=== PATIENT | female | born 1975 | race Caucasian/White ===

== ENCOUNTER 2017-06-08 14:25 | Inpatient (IN) | payer SELFPAY ==
[~2017-06-08] VITALS: Ht 162.6 cm; Wt 84.3 kg
[2017-06-08] VITALS (8 sets, daily range): PULSE 58–63; O2SAT 100
[2017-06-08] MEDS ORDERED: PROPOFOL 1000 MG/100 ML INJ 100 ML ONE ×2 (14:40)
[2017-06-08 14:53] LABS: AUTOMATED NEUTROPHIL # 7.4 TH/MM3 (1.8-7.7); BASOPHIL # 0.1 TH/MM3 (0-0.2); EOSINOPHIL # 0.5 TH/MM3 (0-0.4); EOSINOPHIL % 5.1 % (0.0-4.0); HEMATOCRIT 26.7 % (35.0-46.0); HEMOGLOBIN 8.4 GM/DL (11.6-15.3); LYMPH % 9.6 % (9.0-44.0); LYMPHOCYTE # 0.9 TH/MM3 (1.0-4.8); MEAN CELL VOLUME 77.4 FL (80.0-100.0); MEAN CORPUSCULAR HEMOGLOBIN 24.5 PG (27.0-34.0); MEAN CORPUSCULAR HGB CONC 31.6 % (32.0-36.0); MEAN PLATELET VOLUME 6.5 FL (7.0-11.0); MONO % 1.7 % (0.0-8.0); MONOCYTE # 0.2 TH/MM3 (0-0.9); NEUT % 82.6 % (16.0-70.0); PLATELET COUNT 342 TH/MM3 (150-450); RED BLOOD COUNT 3.44 MIL/MM3 (4.00-5.30); RED CELL DISTRIBUTION WIDTH 18.6 % (11.6-17.2)
--- NOTE | 2017-06-08 14:53 | PD ---
HPI Chief Complaint: trauma alert Time Seen by Provider: 14:28 Travel History International Travel<30 days: No Contact w/Intl Traveler<30days: No Traveled to known affect area: No History of Present Illness HPI Patient with unknown ID was brought in as a trauma alert by the personal injury specialist. I was in the trauma bay waiting for the patient's arrival. Initially the patient was found laying on the floor by her boyfriend in her house at the bottom of the stairs with both legs tucked under her bottom. Patient was GCS of 3 upon their arrival. They tried to give her Narcan without any reversal. No external injuries were noticed. There was an empty bottle of hydroxyzine noticed next to her that was filled recently and only 2 pills left in the bottle. She was maintaining her airway. They brought her in boarded and collared. Patient obviously is unable to give any history. She was hemodynamically stable and GCS continued to be 3. PFSH Past Medical History Narrative Medical Unknown Allergies-Medications (Allergen,Severity, Reaction): Coded Allergies: Sulfa (Sulfonamide Antibiotics) (Verified Allergy, Severe, 06/10/17) azithromycin (Verified Allergy, Severe, 06/10/17) ondansetron (Verified Allergy, Severe, Swelling, 06/09/17) cyclobenzaprine (Verified Allergy, Intermediate, 06/09/17) propoxyphene (Verified Allergy, Intermediate, 06/09/17) Comments Unknown Reported Meds & Prescriptions Reported Meds & Active Scripts Active Reported Loperamide (Loperamide HCl) 2 Mg Cap 2 Mg PO DIRECTED PRN One capsule after each loose stool. Not to exceed 8 capsules per day. Pantoprazole (Pantoprazole Sodium) 40 Mg Tab 40 Mg PO BID Gabapentin 600 Mg Tab 600 Mg PO QID Fluoxetine (Fluoxetine HCl) 40 Mg Cap 40 Cap PO DAILY Mirtazapine 15 Mg Tab 15 Mg PO HS Narrative Medication Unknown Review of Systems ROS Limitations: Unresponsive Except as stated in HPI: all other systems reviewed are Neg Physical Exam Narrative GENERAL: Unresponsive, boarded and collared SKIN: Focused skin assessment warm/dry. Contusions on the upper back HEAD: Atraumatic. Normocephalic. EYES: Pupils equal and round. No scleral icterus. No injection or drainage. ENT: No nasal bleeding or discharge. Mucous membranes pink and moist. NECK: Trachea midline. No JVD. CARDIOVASCULAR: Regular rate and rhythm. No murmur appreciated. RESPIRATORY: No accessory muscle use. Clear to auscultation. Breath sounds equal bilaterally. GASTROINTESTINAL: Abdomen soft, non-tender, nondistended. Hepatic and splenic margins not palpable. Perirectal laceration at 5 o'clock position MUSCULOSKELETAL: No obvious deformities. No clubbing. No cyanosis. No edema. NEUROLOGICAL: GCS of 3 PSYCHIATRIC: Unable to assess Data Data Last Documented VS Vital Signs Date Time Temp Pulse Resp B/P (MAP) Pulse Ox O2 Delivery O2 Flow Rate FiO2 06/08/17 15:08 100 100 Orders Orders I-Stat Profile (06/08/17 14:39) I-Stat Creatinine (06/08/17 14:39) Complete Blood Count With Diff (06/08/17 14:39) Prothrombin Time / Inr (Pt) (06/08/17 14:39) Act Partial Throm Time (Ptt) (06/08/17 14:39) Type And Screen (06/08/17 14:39) Chest, Single Ap (06/08/17 14:39) Pelvis, Ap Only (Routine) (06/08/17 14:39) Ct Brain W/O Iv Contrast(Rout) (06/08/17 14:39) Ct Cerv Spine W/O Contrast (06/08/17 14:39) Ct Abd/Pel W Iv Contrast(Rout) (06/08/17 14:39) Ct Thorax/ Chest W Iv Contrast (06/08/17 14:39) Iv Access Insert/Monitor (06/08/17 14:39) Ecg Monitoring (06/08/17 14:39) Oximetry (06/08/17 14:39) Oxygen Administration (06/08/17 14:39) Propofol 1000 Mg/100 Ml Inj (Diprivan 10 (06/08/17 14:40) Admit Order (Ed Use Only) (06/08/17 15:17) Labs Laboratory Tests Test 06/08/17 14:38 White Blood Count 9.0 TH/MM3 Red Blood Count 3.44 MIL/MM3 Hemoglobin 8.4 GM/DL Bedside Hemoglobin 9.5 G/DL Hematocrit 26.7 % Bedside Hematocrit 28.0 % Mean Corpuscular Volume 77.4 FL Mean Corpuscular Hemoglobin 24.5 PG Mean Corpuscular Hemoglobin Concent 31.6 % Red Cell Distribution Width 18.6 % Platelet Count 342 TH/MM3 Mean Platelet Volume 6.5 FL Neutrophils (%) (Auto) 82.6 % Lymphocytes (%) (Auto) 9.6 % Monocytes (%) (Auto) 1.7 % Eosinophils (%) (Auto) 5.1 % Basophils (%) (Auto) 1.0 % Neutrophils # (Auto) 7.4 TH/MM3 Lymphocytes # (Auto) 0.9 TH/MM3 Monocytes # (Auto) 0.2 TH/MM3 Eosinophils # (Auto) 0.5 TH/MM3 Basophils # (Auto) 0.1 TH/MM3 CBC Comment DIFF FINAL Differential Comment Prothrombin Time 10.6 SEC Prothromb Time International Ratio 1.0 RATIO Activated Partial Thromboplast Time 20.1 SEC Bedside Sodium 130 MMOL/L Bedside Potassium 4.7 MMOL/L Bedside Chloride 105 MMOL/L Bedside Blood Urea Nitrogen 10 MG/DL Bedside Creatinine 0.8 MG/DL Bedside Glucose 116 MG/DL Phosphorus Level 3.6 MG/DL Magnesium Level 1.6 MG/DL Iron Level 26 MCG/DL Total Iron Binding Capacity 447 MCG/DL Percent Iron Saturation 5.8 % Transferrin 319 MG/DL Ferritin 12 NG/ML Total Bilirubin 0.1 MG/DL Direct Bilirubin 0.1 MG/DL Indirect Bilirubin 0.0 MG/DL Aspartate Amino Transf (AST/SGOT) 17 U/L Alanine Aminotransferase (ALT/SGPT) 14 U/L Alkaline Phosphatase 103 U/L Total Creatine Kinase 89 U/L Total Protein 6.8 GM/DL Albumin 3.3 GM/DL Amylase Level 29 U/L Lipase 74 U/L Thyroid Stimulating Hormone 3rd Gen 1.950 uIU/ML Human Chorionic Gonadotropin, Quant 3 MIU/ML Salicylates Level 13.0 MG/DL Acetaminophen Level LESS THAN 2.0 MCG/ML Ethyl Alcohol Level LESS THAN 3 MG/DL B-Hydroxybutyrate 0.07 MMOL/L [facility] Medical Screen Exam Complete: Yes Emergency Medical Condition: Yes Medical Record Reviewed: Yes EKG Prior to Arrival: Yes Differential Diagnosis Intracranial bleed, intrathoracic injury, intrabdominal injury, cervical fracture Narrative Course 3:11 PM given patient's poor GCS status initially I decided to intubate her to protect her airway. Please refer to my procedure note regarding this. The trauma surgeon was present and together patient was inspected as a secondary infection. No external injuries anteriorly was noticed. The trauma surgeon put a right femoral central line. Please refer to his procedure note. Patient' s blood pressure continued to be stable. She was rolled off the backboard and contusions on her upper back was noticed along with the superficial laceration perirectally at 5 o'clock position. There was a significant step off at C7-T1. Patient remained hemodynamically stable when left the trauma bay to go for CT scan. The trauma surgeon assisted her. Portable chest x-ray confirmed tube position. The trauma surgeon just called me to let me note that there were no internal injuries and he will wanted the patient to be admitted medically. He works sign off on the trauma since as per him this is a medical case given the overdose. I put a call out for the storage battery tester for patient's admission. Patient was given 1 L of IV fluid bolus. Critical Care Narrative Aggregate critical care time was 45 minutes. Time to perform other separately billable procedures was not included in the critical care time. My time did not include minutes spent treating any other patients simultaneously or on activities that did not directly contribute to the patient's treatment. The services I provided to this patient were to treat and/or prevent clinically significant deterioration that could result in: Unresponsive, respiratory failure I provided critical care services requiring my management, as noted below: Chart data review, documentation time, medication orders and management, vital sign assessments/reviewing monitor data, ordering and reviewing lab tests, ordering and interpreting/reviewing x-rays and diagnostic studies, care of the patient and discussion of the patient with the admitting physicians. Procedures Procedure Narrative After the risks and benefits were discussed the following procedure was performed: INTUBATION: The patient was put in optimal position for the procedure. Rapid sequence intubation was initiated by me using 40 milligrams of etomidate IV and 200 milligrams of succinylcholine IV. The patient was intubated with a 7.5 cuffed endotracheal tube. Tube placement was confirmed by visualization of the tube and balloon passing through the cords, capnometry and subsequent chest x-ray. Breath sounds were equal and well aerated bilaterally postintubation. No breath sounds over stomach. Patient tolerated procedure well. Emergency department E-FAST was performed with patient consent. The curvilinear probe was used in the right upper quadrant/Morison's pouch, suprapubic, left upper quadrant/spleenorenal space, epigastric, parasternal long axis and anterior bilateral chest wall. There was no evidence of peritoneal free fluid, pericardial effusion, or pneumothorax. Trauma Alert - Level One Trauma Alert Level One: Full trauma team activate, Patient evaluated, Trauma surgeon summoned Time Surgeon Summoned: 14:[address] Augustin, Dr. Lomax Diagnosis Diagnosis: Primary Impression: Unresponsive Additional Impressions: Respiratory failure Qualified Codes: J96.00 - Acute respiratory failure, unspecified whether with hypoxia or hypercapnia Overdose Qualified Codes: T50.904A - Poisoning by unspecified drugs, medicaments and biological substances, undetermined, initial encounter Admitting Physician Requests: Admit Scripts Ferrous Sulfate (Ferosul) 325 Mg (65 Mg Iron) Tablet 325 MG PO BID@ for iron deficiency anemia, #60 MG Prov: Nalini Yeung MD 06/10/17 Yandel Osborn MD Jun 08, 2017 14:53
--- NOTE | 2017-06-08 14:59 | RADRPT ---
EXAM DATE/TIME: 06/08/2017 14:27 [facility] COMPARISON: No previous studies available for comparison. INDICATIONS : Trauma alert. Possible fall down stairs MEDICAL HISTORY : Unobtainable SURGICAL HISTORY : Unobtainable ENCOUNTER: Initial ACUITY: 1 day PAIN SCORE: Non-responsive. LOCATION: Bilateral chest FINDINGS: A single frontal view of the pelvis demonstrates no evidence of fracture. The bony pelvic ring is in tact. Bony mineralization is normal. The soft tissues are intact. CONCLUSION: Intact pelvis. Blair Adamson MD on June 08, 2017 at 14:57 Board Certified Radiologist. This report was verified electronically.
--- NOTE | 2017-06-08 15:01 | RADRPT ---
EXAM DATE/TIME: 06/08/2017 14:27 [facility] COMPARISON: No previous studies available for comparison. INDICATIONS : Trauma alert. Possible fall down stairs MEDICAL HISTORY : Unobtainable SURGICAL HISTORY : Unobtainable ENCOUNTER: Initial ACUITY: 1 day PAIN SCORE: Non-responsive. LOCATION: Bilateral chest FINDINGS: There is patchy infiltrate in the left mid and lower lung and to a lesser extent, the right upper lob e. No pleural effusion seen. No pneumothorax. I don't convincingly see a fracture. Endotracheal tube tip is approximately 13 mm above the jin. CONCLUSION: Bilateral airspace opacities, left worse than right. Endotracheal tube tip close to the jin. Blair Adamson MD on June 08, 2017 at 14:58 Board Certified Radiologist. This report was verified electronically.
[2017-06-08 15:16] LABS: PROTHROMBIN TIME - PATIENT 10.6 SEC (9.8-11.6)
--- NOTE | 2017-06-08 15:31 | RADRPT ---
EXAM DATE/TIME: 06/08/2017 14:54 [facility] COMPARISON: No previous studies available for comparison. INDICATIONS : Trauma alert; fall down stairs. RADIATION DOSE: 56.35 CTDIvol (mGy) MEDICAL HISTORY : Non-responsive. SURGICAL HISTORY : Non-responsive. ENCOUNTER: Initial ACUITY: 1 day PAIN SCALE: Non-responsive LOCATION: cranial TECHNIQUE: Multiple contiguous axial images were obtained of the head. Using automated exposure control and adj ustment of the mA and/or kV according to patient size, radiation dose was kept as low as reasonably a chievable to obtain optimal diagnostic quality images. DICOM format image data is available electro nically for review and comparison. FINDINGS: CEREBRUM: The ventricles are normal for age. No evidence of midline shift, mass lesion, hemorrhage or acute in farction. No extra-axial fluid collections are seen. POSTERIOR FOSSA: The cerebellum and brainstem are intact. The 4th ventricle is midline. The cerebellopontine angle i s unremarkable. EXTRACRANIAL: The visualized portion of the orbits is intact. SKULL: The calvaria is intact. No evidence of skull fracture. CONCLUSION: Negative noncontrast head CT. Blair Adamson MD on June 08, 2017 at 15:29 Board Certified Radiologist. This report was verified electronically.
[2017-06-08] MEDS ORDERED: IOHEXOL 350 MG/ML 10 ML VIAL (for RAD DIAG) IVCONTRAST ONE ×2 (15:32)
--- NOTE | 2017-06-08 15:35 | RADRPT ---
EXAM DATE/TIME: 06/08/2017 14:58 [facility] COMPARISON: No previous studies available for comparison. INDICATIONS : Trauma alert; fall down stairs. IV CONTRAST: 75 cc Omnipaque 350 (iohexol) IV RADIATION DOSE: 42.68 CTDIvol (mGy) ; Combined studies - Thorax/Abdomen/Pelvis; Patient body habitus MEDICAL HISTORY : Non-responsive. SURGICAL HISTORY : Non-responsive. ENCOUNTER: Initial ACUITY: 1 day PAIN SCALE: Non-responsive LOCATION: Bilateral chest TECHNIQUE: Volumetric scanning of the chest was performed. Using automated exposure control and adjustment of t he mA and/or kV according to patient size, radiation dose was kept as low as reasonably achievable to obtain optimal diagnostic quality images. DICOM format image data is available electronically for review and comparison. Follow-up recommendations for detected pulmonary nodules are based at a minimum on nodule size and pa tient risk factors according to Fleischner Society Guidelines. FINDINGS: Patchy streaky airspace consolidation seen of both lungs, mostly dependently. There are low density t iny right and very small left pleural effusions as well. Endotracheal tube tip is approximately 2.5 c m above the jin. Heart and mediastinum are within normal limits. I don't see a fracture of the visualized osseous structures. CONCLUSION: Mild airspace consolidation of both lungs and tiny right, very small left pleural effusions. Blair Adamson MD on June 08, 2017 at 15:31 Board Certified Radiologist. This report was verified electronically.
--- NOTE | 2017-06-08 15:43 | RADRPT ---
EXAM DATE/TIME: 06/08/2017 14:54 [facility] COMPARISON: No previous studies available for comparison. INDICATIONS : Trauma alert; fall down stairs. RADIATION DOSE: 42.68 CTDIvol (mGy) ; Patient body habitus MEDICAL HISTORY : Non-responsive. SURGICAL HISTORY : Non-responsive. ENCOUNTER: Initial ACUITY: 1 day PAIN SCALE: Non-responsive LOCATION: Bilateral neck TECHNIQUE: Volumetric scanning of the cervical spine was performed. Multiplanar reconstructions in the sagittal, coronal and oblique axial planes were performed. Using automated exposure control and adjustment o f the mA and/or kV according to patient size, radiation dose was kept as low as reasonably achievable to obtain optimal diagnostic quality images. DICOM format image data is available electronically f or review and comparison. FINDINGS: I don't see an acute cortical break or trabecular disruption. Also nothing that looks like an acute s ubluxation. Patient has had previous posterior cervico-occipital and cervicothoracic fusion to the level of T2. A lso discectomy and fusion procedure with anterior instrumentation from C2/C3-C5/C6. There is no solid bony bridging seen at C2/C3 but other levels appear solidly fused. There is a chronic appearing ante rior compression deformity of the C5 vertebral body with an associated kyphotic deformity at C5/C6. CONCLUSION: 1. No acute fracture or acute appearing malalignment of the cervical spine. 2. Previous anterior and posterior fusion as above. No bony bridging at C2/C3 but the anterior fusion appears otherwise solid down to C6. Blair Adamson MD on June 08, 2017 at 15:38 Board Certified Radiologist. This report was verified electronically.
--- NOTE | 2017-06-08 15:43 | PD.PROCEDR ---
Central Line Procedure REASON FOR PROCEDURE Central venous access PROCEDURE PERFORMED Central line placement: [right femoral vein ] CONSENT emergency procedure ANESTHESIA Local injection of 1% Lidocaine DESCRIPTION OF THE PROCEDURE The patient was placed in supine position. Right femoral area was exposed and cleansed with ChloraPrep, times two. Large sterile drape was used to cover the patient, with the site exposed, under sterile conditions including cap, face mask, sterile gown, and sterile gloves. On single attempt, the introducer needle was inserted with negative pressure in syringe and venous flash was obtained. The guide wire was then advanced without any restriction and the needle was removed. The dilator was used without any complications. Using Seldinger technique the [cordis ] catheter was advanced over the guide wire to a depth of [ ] centimeters. The guide wire was removed. All ports were aspirated with dark venous blood return and flushed easily with sterile saline. All ports were capped. Antibiotic disc was placed around central line at puncture site. The central line was secured to the skin with two interrupted 2.0 silk sutures. The area was bandaged with sterile see-through central line bandage. RADIOLOGICAL DATA landmark technique. COMPLICATIONS: No apparent complications ESTIMATED BLOOD LOSS: Less than 1 cc. Cammie Augustin MD Jun 08, 2017 15:43
--- NOTE | 2017-06-08 15:47 | RADRPT ---
EXAM DATE/TIME: 06/08/2017 14:56 [facility] COMPARISON: No previous studies available for comparison. INDICATIONS : Trauma alert; fall down stairs. IV CONTRAST: 75 cc Omnipaque 350 (iohexol) IV ; Cumulative dose for multiple exams. ORAL CONTRAST: No oral contrast ingested. RADIATION DOSE: 12.92 CTDIvol (mGy) ; Combined studies - Thorax/Abdomen/Pelvis MEDICAL HISTORY : Non-responsive. SURGICAL HISTORY : Non-responsive. ENCOUNTER: Initial ACUITY: 1 day PAIN SCALE: Non-responsive LOCATION: Bilateral abdomen TECHNIQUE: Volumetric scanning of the abdomen and pelvis was performed. Using automated exposure control and ad justment of the mA and/or kV according to patient size, radiation dose was kept as low as reasonably achievable to obtain optimal diagnostic quality images. DICOM format image data is available electro nically for review and comparison. FINDINGS: LIVER: Homogeneous density without lesion. There is no dilation of the biliary tree. No calcified gallston es. SPLEEN: Normal size without lesion. PANCREAS: Within normal limits. KIDNEYS: Normal in size and shape. There is no mass, stone or hydronephrosis. ADRENAL GLANDS: Within normal limits. VASCULAR: There is no aortic aneurysm. There is a right femoral vein catheter BOWEL/MESENTERY: The stomach, small bowel, and colon demonstrate no acute abnormality. There is no free intraperitone al air or fluid. Large amount of stool throughout the colon. ABDOMINAL WALL: Within normal limits. RETROPERITONEUM: There is no lymphadenopathy. BLADDER: No wall thickening or mass. REPRODUCTIVE: Within normal limits. INGUINAL: There is no lymphadenopathy or hernia. MUSCULOSKELETAL: Within normal limits for patient age. CONCLUSION: No evidence of acute trauma the abdomen or pelvis. Large stool throughout the colon. Blair Adamson MD on June 08, 2017 at 15:43 Board Certified Radiologist. This report was verified electronically.
--- NOTE | 2017-06-08 15:54 | HHI.HP ---
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 Her GCS was 3 on arrival she did not respond to Marcaine she was difficult access so that so that I was inserted to a tibia she remained hemodynamically normal with the low GCS. Open arrival she was orotracheally intubated. Fast negative exam by external trauma right femoral vein IV Cordis access was obtained and patient brought was brought to CAT scan for her workup. Review of Systems ROS Limitations: Clinical Condition, Intoxication, Intubated, Altered Mental Status, Unresponsive Constitutional: DENIES: Fever, Chills, Change in appetite Endocrine: DENIES: Heat/cold intolerance Eyes: DENIES: Blurred vision, Eye pain Past Family Social History Past Medical History cannot be obtained Past Surgical History c spine fusion Reported Medications cannot be obtained Family History cannot be obtained Social History cannot be obtained Physical Exam Vital Signs Vital Signs Date Time Temp Pulse Resp B/P (MAP) Pulse Ox O2 Delivery O2 Flow Rate FiO2 06/08/17 15:08 100 100 Physical Exam GENERAL: This is a well-nourished,nonresponsive SKIN: No rashes, ecchymoses or lesions. Cool and dry. HEAD: Atraumatic. Normocephalic. EYES: Pupils equal round and reactive. Extraocular motions intact. ENT: Nose without bleeding. Airway patent. NECK: Trachea midline. No JVD or lymphadenopathy. Supple, CARDIOVASCULAR: Regular rate and rhythm without murmurs, gallops, or rubs. RESPIRATORY: Clear to auscultation. Breath sounds equal bilaterally. No wheezes , rales, or rhonchi. GASTROINTESTINAL: Abdomen soft, , nondistended. N MUSCULOSKELETAL: Extremities without clubbing, cyanosis, or edema. No join, effusion, or edema NEUROLOGICAL: gcs 3. Laboratory Laboratory Tests Test 06/08/17 14:38 White Blood Count 9.0 Red Blood Count 3.44 Hemoglobin 8.4 Bedside Hemoglobin 9.5 Hematocrit 26.7 Bedside Hematocrit 28.0 Mean Corpuscular Volume 77.4 Mean Corpuscular Hemoglobin 24.5 Mean Corpuscular Hemoglobin Concent 31.6 Red Cell Distribution Width 18.6 Platelet Count 342 Mean Platelet Volume 6.5 Neutrophils (%) (Auto) 82.6 Lymphocytes (%) (Auto) 9.6 Monocytes (%) (Auto) 1.7 Eosinophils (%) (Auto) 5.1 Basophils (%) (Auto) 1.0 Neutrophils # (Auto) 7.4 Lymphocytes # (Auto) 0.9 Monocytes # (Auto) 0.2 Eosinophils # (Auto) 0.5 Basophils # (Auto) 0.1 CBC Comment DIFF FINAL Differential Comment Prothrombin Time 10.6 Prothromb Time International Ratio 1.0 Activated Partial Thromboplast Time 20.1 Bedside Sodium 130 Bedside Potassium 4.7 Bedside Chloride 105 Bedside Blood Urea Nitrogen 10 Bedside Creatinine 0.8 Bedside Glucose 116 Result Diagram: 06/08/171437 Imaging Last 48 hours Impressions Pelvis X-Ray 06/08/171438 Signed Impressions: Service Date/Time: Thursday, June 08, 2017 14:27 - CONCLUSION: Intact pelvis. Blair Adamson MD Head CT 06/08/171438 Signed Impressions: Service Date/Time: Thursday, June 08, 2017 14:54 - CONCLUSION: Negative noncontrast head CT. Blair Adamson MD Chest X-Ray 06/08/171438 Signed Impressions: Service Date/Time: Thursday, June 08, 2017 14:27 - CONCLUSION: Bilateral airspace opacities, left worse than right. Endotracheal tube tip close to the jin. Blair Adamson MD Capbii VTE Risk Assessment Caprini VTE Risk Assessment: No/Low Risk (score <= 1) Caprini Risk Assessment Model Point Value = 1 Point Value = 2 Point Value = 3 Point Value = 5 Age 41-60 Minor surgery BMI > 25 kg/m2 Swollen legs Varicose veins or History of unexplained or recurrent spontaneous Oral contraceptives or hormone replacement Sepsis (< 1 month) Serious lung disease, including pneumonia (< 1 month) Abnormal pulmonary function Acute myocardial infarction Congestive heart failure (< 1 month) History of inflammatory bowel disease Medical patient at bed rest Age 61-74 Arthroscopic surgery Major open surgery (> 45 min) Laparoscopic surgery (> 45 min) Malignancy Confined to bed (> 72 hours) Immobilizing plaster cast Central venous access Age >= 75 History of VTE Family history of VTE Factor V Leiden Prothrombin [id number] Lupus anticoagulant Anticardiolipin antibodies Elevated serum homocysteine Heparin-induced thrombocytopenia Other congenital or acquired thrombophilia Stroke (< 1 month) Elective arthroplasty Hip, pelvis, or leg fracture Acute spinal cord injury (< 1 month) Prophylaxis Regimen Total Risk Factor Score Risk Level Prophylaxis Regimen 0-1 Low Early ambulation 2 Moderate Order ONE of the following: *Sequential Compression Device (SCD) *Heparin 5000 units SQ BID 3-4 Higher Order ONE of the following medications: *Heparin 5000 units SQ TID *Enoxaparin/Lovenox 40 mg SQ daily (WT < 150 kg, CrCl > 30 mL/min) *Enoxaparin/Lovenox 30 mg SQ daily (WT < 150 kg, CrCl > 10-29 mL/min) *Enoxaparin/Lovenox 30 mg SQ BID (WT < 150 kg, CrCl > 30 mL/min) AND/OR *Sequential Compression Device (SCD) 5 or more Highest Order ONE of the following medications: *Heparin 5000 units SQ TID (Preferred with Epidurals) *Enoxaparin/Lovenox 40 mg SQ daily (WT < 150 kg, CrCl > 30 mL/min) *Enoxaparin/Lovenox 30 mg SQ daily (WT < 150 kg, CrCl > 10-29 mL/min) *Enoxaparin/Lovenox 30 mg SQ BID (WT < 150 kg, CrCl > 30 mL/min) AND *Sequential Compression Device (SCD) Assessment and Plan Assessment and Plan Drug [id number] in coma No traumatic injuries Orotracheal intubation follow GCS Right femoral central line for poor access Admit to medical clinical account executive Cammie Augustin MD Jun 08, 2017 15:54
--- NOTE | 2017-06-08 16:05 | PD.CONS ---
[facility] Service Critical Care Medicine Consult Requested By Dr. Augustin Reason for Consult Critical care management status post fall/possible overdose with hydroxyzine Primary Care Physician Unknown History of Present Illness This is a 41-year-old female. Actual name is Mike Peterson. Date of admission 06/08/2017. Date of consultation 06/08/2017. She has a history of gastroesophageal reflux disease, diarrhea and unknown psychiatric history. She is on mirtazapine, fluoxetine, gabapentin, benztropine, hydroxyzine, loperamide and pantoprazole. She presented to [place] ED as a trauma alert 1 status post fall down unknown amount of steps and was found by boyfriend with an almost empty bottle of Atarax 50 mg tablets #60. Upon arrival patient was collared on a backboard protecting her airway. Patient was intubated with 7.5 ET tube@receiving 40 mg etomidate 200 mg succinylcholine. The trauma surgeon put a right femoral Cordis central line. Please refer to his procedure note. Patient's blood pressure continued to be stable. According to the records, there is noted to be contusions on her upper back was noticed along with the superficial laceration perirectally at 5 o' clock position. There was a significant step off at C7-T1. Images negative. Trauma surgery signed off on the trauma since as per him this is a medical case given the overdose. CT C-spine revealed no acute fracture. Previous posterior cervical occipital cervical thoracic fusion at the level TII. Also discectomy and fusion procedure with anterior instrumentation from C2 through C6. Chronic appearing anterior compression fracture at C5. Noted kyphotic deformity C5/C6. Review of Systems ROS Limitations: Intubated Past Family Social History Past Medical History Depression Gastroesophageal reflux disease Diarrhea Past Surgical History Prior cervicooccipital/cervicothoracic fusion. Prior discectomy/fusion with anterior instrumentation C3 to C6. Reported Medications Mirtazapine 15 mg by mouth daily Fluoxetine 40 mg by mouth daily Pantoprazole 40 mg by mouth daily Gabapentin 600 mg by mouth 4 times a day Benztropine 1 mg twice a day Loperamide 2 mg as needed Hydroxyzine 50 mg by mouth twice a day Active Ordered Medications Reviewed in EMR Family History Unknown/unobtainable. Family is currently unavailable Social History Unknown if any prior alcohol/tobacco or illicit drug use. Urine toxicology screen pending. Physical Exam Vital Signs Vital Signs Date Time Temp Pulse Resp B/P (MAP) Pulse Ox O2 Delivery O2 Flow Rate FiO2 06/08/17 15:08 100 100 Physical Exam GENERAL: 41 year old female currently in c-collar SKIN: Warm and dry. We'll perfused HEAD: Atraumatic. Normocephalic. EYES: Pupils equal and round about 5 mm bilaterally and reactive. No scleral icterus. No injection or drainage. ENT: No nasal bleeding or discharge. Mucous membranes pink and moist. Orotracheally intubated NECK: Trachea midline. No JVD. Currently in c-collar CARDIOVASCULAR: Tachycardic, RR. S1, S2. No S4. Without murmur RESPIRATORY: Distant but essentially Clear to auscultation. Breath sounds equal bilaterally. GASTROINTESTINAL: Abdomen soft, non-tender, obese. Hypoactive bowel sounds are appreciated MUSCULOSKELETAL: Extremities without difficulty and peripheral edema. No obvious deformities. NEUROLOGICAL: Currently sedated on the ventilator propofol drip at 50 mu./kg per minute. Positive gag. Positive corneal reflux. Currently not withdrawing to pain. Laboratory Laboratory Tests Test 06/08/17 14:38 White Blood Count 9.0 Red Blood Count 3.44 Hemoglobin 8.4 Bedside Hemoglobin 9.5 Hematocrit 26.7 Bedside Hematocrit 28.0 Mean Corpuscular Volume 77.4 Mean Corpuscular Hemoglobin 24.5 Mean Corpuscular Hemoglobin Concent 31.6 Red Cell Distribution Width 18.6 Platelet Count 342 Mean Platelet Volume 6.5 Neutrophils (%) (Auto) 82.6 Lymphocytes (%) (Auto) 9.6 Monocytes (%) (Auto) 1.7 Eosinophils (%) (Auto) 5.1 Basophils (%) (Auto) 1.0 Neutrophils # (Auto) 7.4 Lymphocytes # (Auto) 0.9 Monocytes # (Auto) 0.2 Eosinophils # (Auto) 0.5 Basophils # (Auto) 0.1 CBC Comment DIFF FINAL Differential Comment Prothrombin Time 10.6 Prothromb Time International Ratio 1.0 Activated Partial Thromboplast Time 20.1 Bedside Sodium 130 Bedside Potassium 4.7 Bedside Chloride 105 Bedside Blood Urea Nitrogen 10 Bedside Creatinine 0.8 Bedside Glucose 116 Result Diagram: 06/08/17 1438 Imaging Last Impressions Pelvis X-Ray 06/08/17 1439 Signed Impressions: Service Date/Time: Thursday, June 08, 2017 14:27 - CONCLUSION: Intact pelvis. Blair Adamson MD Head CT 06/08/171438 Signed Impressions: Service Date/Time: Thursday, June 08, 2017 14:54 - CONCLUSION: Negative noncontrast head CT. Blair Adamson MD Chest X-Ray 06/08/171438 Signed Impressions: Service Date/Time: Thursday, June 08, 2017 14:27 - CONCLUSION: Bilateral airspace opacities, left worse than right. Endotracheal tube tip close to the jin. Blair Adamson MD Chest CT 06/08/171438 Signed Impressions: Service Date/Time: Thursday, June 08, 2017 14:58 - CONCLUSION: Mild airspace consolidation of both lungs and tiny right, very small left pleural effusions. Blair Adamson MD Cervical Spine CT 06/08/171438 Signed Impressions: Service Date/Time: Thursday, June 08, 2017 14:54 - CONCLUSION: 1. No acute fracture or acute appearing malalignment of the cervical spine. 2. Previous anterior and posterior fusion as above. No bony bridging at C2/C3 but the anterior fusion appears otherwise solid down to C6. Blair Adamson MD Abdomen/Pelvis CT 06/08/171438 Signed Impressions: Service Date/Time: Thursday, June 08, 2017 14:56 - CONCLUSION: No evidence of acute trauma the abdomen or pelvis. Large stool throughout the colon. Blair Adamson MD Assessment and Plan Assessment and Plan Neuro/Psych: Acute altered mental status possible hydroxyzine overdose Prior cervical discectomy/fusion CT brain 06/08 revealed no acute intracranial findings CT C-spine revealed previous posterior cervicooccipital and cervico thoracic fusion at the level T2. Discectomy and fusion procedure with anterior instrumentation of C2 through C6. Chronic appearing anterior compression deformity of the C5 vertebral body with kyphotic deformity at C5/C6. Currently on propofol/fentanyl drips for sedation/analgesia while intubated Goal of RA SS -2 Daily sedation vacation Urine drug screen currently pending along with EtOH, salicylates and acetaminophen Holding home medications of mirtazapine 15 mg, fluoxetine 40 mg daily, gabapentin 600 mg 4 times a day, been serving 1 mg twice a day and hydroxyzine 50 mg twice a day Check gabapentin level Poison control be notified CV: Sinus tachycardia Hypertension Patient is currently normal saline at 84 cc an hour. Status post 1 L crystalloid in ED Currently not requiring vasopressors and/or antihypertensives. Follow-up EKG Resp: Acute respiratory failure [facility] 16/550/08/09/ Ventilator bundle Albuterol/ipratropium aerosols with albuterol aerosols every 2 hours. Dyspnea Spontaneous breathing trials daily GI: Gastroesophageal reflux disease History of diarrhea NGT to [facility] Pantoprazole for GI prophylaxis Docusate sodium/senna 1 tablet twice a day for bowel regimen Status post 50 g sorbitol and charcoal for gastric decontamination Holding loperamide 2 mg as needed : Purdy catheter will be placed for accurate I's and O's in a critically ill patient Endo: Sliding-scale insulin if indicated to maintain euglycemia Check TSH Renal: Creatinine currently within normal limits Monitor urine output Accurate I's and O's Heme: Microcytic anemia Check iron studies/TIBC and ferritin. No indications for transfusion of blood proximally at this time. ID: Monitor for infection FEN: Hyponatremia Replace electrolytes as clinically indicated per ICU electrolyte protocol MSK: PT evaluate and treat Access - Utilize peripheral IV. Remove right femoral Cordis once peripheral IVs established Prophylaxis - GI - pantoprazole - DVT - SCD/heparin subcutaneous Critical Care: The total critical care time was 35 minutes. Time to perform other separately billable procedures was not included in the critical care time. Code Status Full code Discussed Condition With Dr. Lomax. Care plan discussed and all questions answered Roverto Yu MD Jun 08, 2017 16:05
[2017-06-08] MEDS ORDERED: SODIUM CHLORIDE 0.9% FLUSH 10 ML FLUSH IV FLUSH PRN ×2 (16:15)
[2017-06-08] MEDS ORDERED: ONDANSETRON HCL 4 MG/2 ML VIAL IV PUSH PRN ×2 (16:15)
[2017-06-08] MEDS ORDERED: POTASSIUM CHLOR 20 MEQ PREMIX 100 ML IV PRN ×2 (16:15)
[2017-06-08] MEDS ORDERED: RESP: ALBUTEROL 2.5 MG/3 ML NEB (PRN) INH ×2 (16:15)
[2017-06-08] MEDS ORDERED: POTASSIUM CHLOR 40 MEQ PREMIX 100 ML IV PRN ×4 (16:15)
[2017-06-08] MEDS ORDERED: POTASSIUM PHOSPHATE MONOBASIC 500 MG TAB PO/TUBE PRN ×2 (16:15)
[2017-06-08] MEDS ORDERED: MAGNESIUM SULFATE INJ 2 GM in SODIUM CHLORIDE 0.9% INJ 96 ML IV PRN ×4 (16:15)
[2017-06-08] MEDS ORDERED: GLUCAGON 1 MG/ML VIAL OTHER PRN ×2 (16:15)
[2017-06-08] MEDS ORDERED: MAGNESIUM HYDROXIDE SUSP 30 ML CUP PO PRN ×2 (16:15)
[2017-06-08] MEDS ORDERED: BISACODYL 10 MG SUPP RECTAL PRN ×2 (16:15)
[2017-06-08] MEDS ORDERED: ACTIVATED CHARCOAL/SORBITOL LIQUID 25 GM/120 ML BTL NG ONE ×2 (16:15)
[2017-06-08] MEDS ORDERED: POTASSIUM PHOSPHATE MONOBASIC 500 MG TAB PO PRN ×2 (16:15)
[2017-06-08] MEDS ORDERED: SENNOSIDES 8.6 MG TAB PO PRN ×2 (16:15)
[2017-06-08] MEDS ORDERED: fentaNYL DRIP 250 ML IV PRN ×2 (16:15)
[2017-06-08] MEDS ORDERED: MAGNESIUM OXIDE 400 MG TAB PO PRN ×2 (16:15)
[2017-06-08] MEDS ORDERED: MAGNESIUM SULFATE INJ 4 GM in SODIUM CHLORIDE 0.9% INJ 92 ML IV PRN ×4 (16:15)
[2017-06-08] MEDS ORDERED: POTASSIUM CHLORIDE 25 MEQ EFFERVESCENT TAB PO PRN ×2 (16:15)
[2017-06-08] MEDS ORDERED: LACTULOSE SYRUP 20 GM/30 ML CUP PO PRN ×2 (16:15)
[2017-06-08] MEDS ORDERED: POTASSIUM PHOSPHATE INJ 30 MMOL in SODIUM CHLOR 0.9% 250 ML INJ 250 ML IV PRN ×4 (16:15)
[2017-06-08] MEDS ORDERED: DEXTROSE 50% IN WATER 50 ML VIAL(D50) IV PUSH PRN (16:15)
[2017-06-08] MEDS ORDERED: SODIUM PHOSPHATE INJ 30 MMOL in SODIUM CHLOR 0.9% 250 ML INJ 240 ML IV PRN ×4 (16:15)
[2017-06-08] MEDS ORDERED: CHLORHEXIDINE GLUCONATE 2 % 1 PACK (2 CLOTHS) TOP PRN ×2 (16:15)
[2017-06-08] MEDS ORDERED: MISCELLANEOUS NURSING INFORMATION XX SCH ×2 (16:15)
[2017-06-08] MEDS ORDERED: PANT40TA3 PO ×2 (16:25)
[2017-06-08] MEDS ORDERED: HYDR50CA PO ×2 (16:25)
[2017-06-08] MEDS ORDERED: FLUO40CA PO ×2 (16:25)
[2017-06-08] MEDS ORDERED: BENZ0.5T PO ×2 (16:25)
[2017-06-08] MEDS ORDERED: GABA600T PO ×2 (16:25)
[2017-06-08] MEDS ORDERED: LOPE2CAP PO ×2 (16:25)
[2017-06-08] MEDS ORDERED: MIRTA15 PO ×2 (16:25)
[2017-06-08] MEDS: PROPOFOL 1000 MG/100 ML INJ 100 ML IV PRN ×6 (16:35→22:21)
[2017-06-08] MEDS: SODIUM CHLOR 0.9% 1000 ML INJ 1,000 ML IV SCH ×2 (16:35)
[2017-06-08] MEDS: HEPARIN SODIUM - SQ 10,000 UNITS/ML VIAL SQ SCH ×2 (16:47)
[2017-06-08] MEDS: RESP: ALBUTEROL 2.5 MG/IPRATROPIUM 0.5 MG NEB (SCH) INH ×2 (17:10)
[2017-06-08 17:49] LABS: ALBUMIN 3.3 GM/DL (3.4-5.0); AMYLASE 29 U/L (25-115); AST (GOT) 17 U/L (15-37); LIPASE 74 U/L (73-393); MAGNESIUM 1.6 MG/DL (1.5-2.5)
[2017-06-08 17:58] LABS: % SATURATION IRON PROFILE 5.8 % (20-50); ACETAMINOPHEN LESS THAN 2.0 MCG/ML (10.0-30.0); ALKALINE PHOSPHATASE 103 U/L (45-117); ALT (GPT) 14 U/L (10-53); DIRECT BILIRUBIN ADULT 0.1 MG/DL (0.0-0.2); FERRITIN 12 NG/ML (8-252); IRON (FE) 26 MCG/DL (50-170); PHOSPHORUS 3.6 MG/DL (2.5-4.9); TOTAL BILIRUBIN ADULT 0.1 MG/DL (0.2-1.0); TOTAL IRON BINDING CAPACITY 447 MCG/DL (250-450); TOTAL PROTEIN 6.8 GM/DL (6.4-8.2)
[2017-06-08] MEDS: INSULIN NovoLIN REGULAR SUPPLEMENTAL SCALE SQ SCH ×4 (18:00→23:37)
[2017-06-08] MEDS: ARTIFICIAL TEARS OPTH SOLN 15 ML BTL EACH EYE SCH ×2 (18:03)
[2017-06-08] MEDS: CHLORHEXIDINE 0.12% (ORAL KIT) 15 ML CUP MT SCH ×2 (20:07)
[2017-06-08] MEDS: DOCUSATE SODIUM 50 MG/SENNA 8.6 MG TAB PO SCH ×2 (21:30)
[2017-06-08] MEDS: SODIUM CHLORIDE 0.9% FLUSH 10 ML FLUSH IV FLUSH SCH ×2 (21:30)
[2017-06-09] VITALS (20 sets, daily range): BP systolic 177–182; BP diastolic 87–88; PULSE 53–123; RESP 20; TEMP 99.5; O2SAT 98–100
[2017-06-09] MEDS: HEPARIN SODIUM - SQ 10,000 UNITS/ML VIAL SQ SCH ×8 (01:22→23:33)
[2017-06-09] MEDS: PROPOFOL 1000 MG/100 ML INJ 100 ML IV PRN ×6 (01:41→09:18)
[2017-06-09] MEDS: RESP: ALBUTEROL 2.5 MG/IPRATROPIUM 0.5 MG NEB (SCH) INH ×8 (03:39→22:35)
[2017-06-09] MEDS: CHLORHEXIDINE GLUCONATE 2 % 1 PACK (2 CLOTHS) TOP SCH ×2 (04:00)
[2017-06-09] MEDS: SODIUM CHLOR 0.9% 1000 ML INJ 1,000 ML IV SCH ×4 (04:05→17:11)
[2017-06-09 04:38] LABS: AUTOMATED NEUTROPHIL # 5.2 TH/MM3 (1.8-7.7); BASOPHIL # 0.1 TH/MM3 (0-0.2); BASOPHIL % 0.9 % (0.0-2.0); EOSINOPHIL # 0.1 TH/MM3 (0-0.4); EOSINOPHIL % 1.9 % (0.0-4.0); HEMATOCRIT 24.5 % (35.0-46.0); HEMOGLOBIN 7.9 GM/DL (11.6-15.3); LYMPH % 15.7 % (9.0-44.0); LYMPHOCYTE # 1.1 TH/MM3 (1.0-4.8); MEAN PLATELET VOLUME 6.5 FL (7.0-11.0); MONO % 4.7 % (0.0-8.0); MONOCYTE # 0.3 TH/MM3 (0-0.9); NEUT % 76.8 % (16.0-70.0); PLATELET COUNT 313 TH/MM3 (150-450); RED BLOOD COUNT 3.15 MIL/MM3 (4.00-5.30); RED CELL DISTRIBUTION WIDTH 18.9 % (11.6-17.2); WHITE BLOOD COUNT 6.7 TH/MM3 (4.0-11.0)
[2017-06-09 04:58] LABS: PROTHROMBIN TIME - PATIENT 10.9 SEC (9.8-11.6)
[2017-06-09 05:10] LABS: BICARBONATE 20.9 MEQ/L (21.0-32.0); CALCIUM 7.9 MG/DL (8.5-10.1); CREATININE 0.59 MG/DL (0.50-1.00); MAGNESIUM 1.7 MG/DL (1.5-2.5)
[2017-06-09 05:11] LABS: PHOSPHORUS 2.9 MG/DL (2.5-4.9)
[2017-06-09 05:13] LABS: TOTAL BILIRUBIN ADULT 0.2 MG/DL (0.2-1.0)
[2017-06-09] MEDS: POTASSIUM CHLOR 20 MEQ PREMIX 100 ML IV PRN ×4 (05:19→09:17)
[2017-06-09] MEDS: INSULIN NovoLIN REGULAR SUPPLEMENTAL SCALE SQ SCH ×6 (05:40→18:00)
--- NOTE | 2017-06-09 06:02 | RADRPT ---
EXAM DATE/TIME: 06/09/2017 04:59 [place] COMPARISON: CHEST SINGLE AP, June 08, 2017, 14:27. INDICATIONS : Respiratory failure. MEDICAL HISTORY : None. SURGICAL HISTORY : None. ENCOUNTER: Subsequent ACUITY: 4 - 6 days PAIN SCORE: Non-responsive. LOCATION: Bilateral chest FINDINGS: Single AP view of the chest. Endotracheal tube and nasogastric tube remain in place. Lung volumes are low. Patchy opacity at the left lung base unchanged. No evidence of pleural effusion or pneumothorax . CONCLUSION: No significant neural change. Persistent patchy left lower lung consolidation versus atelectasis. Sonny Latham MD on June 09, 2017 at 6:00 Board Certified Radiologist. This report was verified electronically.
[2017-06-09] MEDS: CHLORHEXIDINE 0.12% (ORAL KIT) 15 ML CUP MT SCH ×4 (08:00→20:00)
[2017-06-09 08:31] LABS: CALCIUM-PROTEIN CORRECTED 8.5 MG/DL (8.5-10.1)
[2017-06-09] MEDS: PANTOPRAZOLE SODIUM 40 MG VIAL IV PUSH SCH ×2 (09:16)
[2017-06-09] MEDS: DOCUSATE SODIUM 50 MG/SENNA 8.6 MG TAB PO SCH ×4 (09:17→21:00)
[2017-06-09] MEDS: SODIUM CHLORIDE 0.9% FLUSH 10 ML FLUSH IV FLUSH SCH ×4 (09:18→21:03)
[2017-06-09] MEDS: ARTIFICIAL TEARS OPTH SOLN 15 ML BTL EACH EYE SCH ×6 (09:19→18:00)
--- NOTE | 2017-06-09 10:46 | HHI.CCPN ---
Subjective Remarks/Hospital Course This is a 41-year-old female. Actual name is Mike Peterson. Date of admission 06/08/2017. Date of consultation 06/08/2017. She has a history of gastroesophageal reflux disease, diarrhea and unknown psychiatric history. She is on mirtazapine, fluoxetine, gabapentin, benztropine, hydroxyzine, loperamide and pantoprazole. She presented to [facility] ED as a trauma alert 1 status post fall down unknown amount of steps and was found by boyfriend with an almost empty bottle of Atarax 50 mg tablets #60. Upon arrival patient was collared on a backboard protecting her airway. Patient was intubated with 7.5 ET tube@receiving 40 mg etomidate 200 mg succinylcholine. The trauma surgeon put a right femoral Cordis central line. Please refer to his procedure note. Patient's blood pressure continued to be stable. According to the records, there is noted to be contusions on her upper back was noticed along with the superficial laceration perirectally at 5 o' clock position. There was a significant step off at C7-T1. Images negative. Trauma surgery signed off on the trauma since as per him this is a medical case given the overdose. CT C-spine revealed no acute fracture. Previous posterior cervical occipital cervical thoracic fusion at the level TII. Also discectomy and fusion procedure with anterior instrumentation from C2 through C6. Chronic appearing anterior compression fracture at C5. Noted kyphotic deformity C5/C6. Subjective: 06/09: Patient is alert and oriented on low-dose propofol fentanyl infusion. Fentanyl now discontinued. CPAP trials initiated early this a.m., plan for SBT trials with plan for extubation this afternoon. Discussion with trauma surgeon Dr. Price, review of CT C-spine, evaluation of patient's motor strength ,C- spine cleared, c-collar removed. Objective Vital Signs Date Time Temp Pulse Resp B/P (MAP) Pulse Ox O2 Delivery O2 Flow Rate FiO2 06/09/17 08:29 50 06/09/17 08:24 100 06/09/17 07:00 Mechanical Ventilator 06/09/17 06:00 88 Intake and Output 06/09/17 06/09/17 06/10/17 08:00 16:00 00:00 Intake Total 1275 ml Output Total 4160 ml Balance -2885 ml Result Diagram: 06/09/17 0415 06/09/17 0415 Other Results Microbiology Date/Time Source Procedure Growth Status 06/09/17 01:05 Stool Stool Stool Occult Blood (TIM) - Final HEMOCCULT NEGATIVE Complete Laboratory Tests Test 06/08/17 17:45 06/09/17 06:24 Blood Gas Puncture Site LT RADIAL RT RADIAL Blood Gas Patient Temperature 98.6 98.6 Blood Gas HCO3 14 mmol/L (22-26) 17 mmol/L (22-26) Blood Gas Base Excess -10.9 mmol/L (-2-2) -7.3 mmol/L (-2-2) Blood Gas Oxygen Saturation 96 % (90-100) 97 % (90-100) Arterial Blood pH 7.29 (7.380-7.420) 7.35 (7.380-7.420) Arterial Blood Partial Pressure CO2 31 mmHg (38-42) 32 mmHg (38-42) Arterial Blood Partial Pressure O2 180 mmHg (61-120) 152 mmHg (61-120) Arterial Blood Oxygen Content 11.1 Vol % (12.0-20.0) 9.3 Vol % (12.0-20.0) Arterial Blood Carboxyhemoglobin 0.9 % (0-4) 1.1 % (0-4) Arterial Blood Methemoglobin 1.4 % (0-2) 1.4 % (0-2) Blood Gas Hemoglobin 7.9 G/DL (12.0-16.0) 6.6 G/DL (12.0-16.0) Oxygen Delivery Device VENT VENT Blood Gas Ventilator Setting 15/500/5PEEP/IT 1 SEE COMMENTS Blood Gas Inspired Oxygen 50 % 50 % Imaging Last Impressions Chest X-Ray 06/09/17 0600 Signed Impressions: Service Date/Time: Friday, June 09, 2017 04:59 - CONCLUSION: No significant neural change. Persistent patchy left lower lung consolidation versus atelectasis. Sonny Latham MD Pelvis X-Ray 06/08/171438 Signed Impressions: Service Date/Time: Thursday, June 08, 2017 14:27 - CONCLUSION: Intact pelvis. Blair Adamson MD Head CT 06/08/17 1439 Signed Impressions: Service Date/Time: Thursday, June 08, 2017 14:54 - CONCLUSION: Negative noncontrast head CT. Blair Adamson MD Chest CT 06/08/171438 Signed Impressions: Service Date/Time: Thursday, June 08, 2017 14:58 - CONCLUSION: Mild airspace consolidation of both lungs and tiny right, very small left pleural effusions. Blair Adamson MD Cervical Spine CT 06/08/171438 Signed Impressions: Service Date/Time: Thursday, June 08, 2017 14:54 - CONCLUSION: 1. No acute fracture or acute appearing malalignment of the cervical spine. 2. Previous anterior and posterior fusion as above. No bony bridging at C2/C3 but the anterior fusion appears otherwise solid down to C6. Blair Adamson MD Abdomen/Pelvis CT 06/08/171438 Signed Impressions: Service Date/Time: Thursday, June 08, 2017 14:56 - CONCLUSION: No evidence of acute trauma the abdomen or pelvis. Large stool throughout the colon. Blair Adamson MD Last Impressions Pelvis X-Ray 06/08/171438 Signed Impressions: Service Date/Time: Thursday, June 08, 2017 14:27 - CONCLUSION: Intact pelvis. Blair Adamson MD Head CT 06/08/171438 Signed Impressions: Service Date/Time: Thursday, June 08, 2017 14:54 - CONCLUSION: Negative noncontrast head CT. Blair Adamson MD Chest X-Ray 06/08/171438 Signed Impressions: Service Date/Time: Thursday, June 08, 2017 14:27 - CONCLUSION: Bilateral airspace opacities, left worse than right. Endotracheal tube tip close to the jin. Blair Adamson MD Chest CT 06/08/171438 Signed Impressions: Service Date/Time: Thursday, June 08, 2017 14:58 - CONCLUSION: Mild airspace consolidation of both lungs and tiny right, very small left pleural effusions. Blair Adamson MD Cervical Spine CT 06/08/171438 Signed Impressions: Service Date/Time: Thursday, June 08, 2017 14:54 - CONCLUSION: 1. No acute fracture or acute appearing malalignment of the cervical spine. 2. Previous anterior and posterior fusion as above. No bony bridging at C2/C3 but the anterior fusion appears otherwise solid down to C6. Blair Adamson MD Abdomen/Pelvis CT 06/08/171438 Signed Impressions: Service Date/Time: Thursday, June 08, 2017 14:56 - CONCLUSION: No evidence of acute trauma the abdomen or pelvis. Large stool throughout the colon. Blair Adamson MD Objective Remarks GENERAL: 41 year old female currently in C-collar, awake alert and oriented, following commands SKIN: Warm and dry. Well perfused. HEAD: Atraumatic. Normocephalic. EYES: Pupils equal and round about 5 mm bilaterally and reactive. No scleral icterus. No injection or drainage. ENT: No nasal bleeding or discharge. Mucous membranes pink and moist. Orotracheally intubated NECK: Trachea midline. No JVD. C-collar currently in place to be removed CARDIOVASCULAR: Tachycardic, RR. S1, S2. No S4. Without murmur RESPIRATORY: Distant but essentially Clear to auscultation. Breath sounds equal bilaterally. GASTROINTESTINAL: Abdomen soft, non-tender, obese. Hypoactive bowel sounds are appreciated MUSCULOSKELETAL: Extremities without difficulty and peripheral edema. No obvious deformities. NEUROLOGICAL: Previously on fentanyl and propofol infusions for ventilator synchrony fentanyl has been discontinued. The patient continues on propofol low dose, being currently weaned off A/P Assessment and Plan Neuro/Psych: Acute altered mental status possible hydroxyzine overdose Prior cervical discectomy/fusion CT brain 06/08 revealed no acute intracranial findings CT C-spine revealed previous posterior cervicooccipital and cervico thoracic fusion at the level T2. Discectomy and fusion procedure with anterior instrumentation of C2 through C6. Chronic appearing anterior compression deformity of the C5 vertebral body with kyphotic deformity at C5/C6. Currently on propofol/fentanyl drips for sedation/analgesia while intubated Goal of RASS -2 Daily sedation vacation. Discontinue fentanyl infusion Urine drug screen currently pending along with EtOH, salicylates and acetaminophen Ammonia level 57 Holding home medications of mirtazapine 15 mg, fluoxetine 40 mg daily, gabapentin 600 mg 4 times a day, been serving 1 mg twice a day and hydroxyzine 50 mg twice a day F/U gabapentin level Poison control [id number] pending, continue supportive care recommendations Currently GCS 11 T CV: Sinus tachycardia Hypertension Continue normal saline at 84 cc an hour. Received 1 L crystalloid in ED 06/08 Currently not requiring vasopressors and/or antihypertensives. Follow-up EKG -concern for QTC prolongation with fluoxetine, and QRS widening with hydroxyzine Resp: Acute respiratory failure [facility] 16/550/1/5/100 Ventilator bundle Albuterol/ipratropium aerosols with albuterol aerosols every 2 hours. Dyspnea Spontaneous breathing trials daily-obtain parameters GI: Gastroesophageal reflux disease History of diarrhea NGT to [facility] Pantoprazole for GI prophylaxis Docusate sodium/senna 1 tablet twice a day for bowel regimen Status post 50 g sorbitol and charcoal for gastric decontamination Holding loperamide 2 mg as needed : Purdy catheter will be placed for accurate I's and O's in a critically ill patient Endo: Sliding-scale insulin if indicated to maintain euglycemia TSH level 1.950 WNL Renal: Monitor urine output Accurate I's and O's Heme: Microcytic anemia Check iron studies/TIBC and ferritin. No indications for transfusion of blood proximally at this time. ID: Monitor for infection FEN: Hyponatremia Replace electrolytes as clinically indicated per ICU electrolyte protocol MSK: PT evaluate and treat Access - Utilize peripheral IV. Remove right femoral Cordis once peripheral IVs established Prophylaxis - GI - pantoprazole - DVT - SCD/heparin subcutaneous Critical Care: The total critical care time was 30 minutes. Time to perform other separately billable procedures was not included in the critical care time. Physician Kate Mcdaniels MD Jun 09, 2017 10:46
[2017-06-09 12:19] LABS: % SATURATION IRON PROFILE 5.8 % (20-50); IRON (FE) 22 MCG/DL (50-170); TOTAL IRON BINDING CAPACITY 378 MCG/DL (250-450)
[2017-06-09 12:21] LABS: FERRITIN 10 NG/ML (8-252)
--- NOTE | 2017-06-09 12:33 | EKG ---
Date Performed: 06/08/2017 Time Performed: 16:58:14 PTAGE: 89 years EKG: Sinus rhythm . Normal ECG NO PREVIOUS TRACING DOCTOR: Lawson Trujillo Interpretating Date/Time 06/09/2017 12:30:40
--- NOTE | 2017-06-09 12:33 | EKG ---
Date Performed: 06/08/2017 Time Performed: 19:46:16 PTAGE: 89 years EKG: Sinus rhythm . Normal ECG PREVIOUS TRACING : 06/08/2017 16.58 Compared to prior tracing no significant change DOCTOR: Lawson Trujillo Interpretating Date/Time 06/09/2017 12:30:48
--- NOTE | 2017-06-09 12:33 | EKG ---
Date Performed: 06/08/2017 Time Performed: 16:58:14 PTAGE: 89 years EKG: Sinus rhythm . Normal ECG NO PREVIOUS TRACING DOCTOR: Lawson Trujillo Interpretating Date/Time 06/09/2017 12:30:40
--- NOTE | 2017-06-09 12:33 | EKG ---
Date Performed: 06/08/2017 Time Performed: 16:58:14 PTAGE: 89 years EKG: Sinus rhythm . Normal ECG NO PREVIOUS TRACING DOCTOR: Lawson Trujillo Interpretating Date/Time 06/09/2017 12:30:40
[2017-06-09] MEDS ORDERED: CLON0.2T PO ×2 (13:23)
[2017-06-09] MEDS ORDERED: ATEN50TA PO ×2 (13:23)
[2017-06-09] MEDS ORDERED: ACETAMIN 325 MG/BUTALBITAL 50 MG/CAFFEINE 40 MG TAB PO PRN ×4 (14:45→17:30)
--- NOTE | 2017-06-09 15:50 | EKG ---
Date Performed: 06/09/2017 Time Performed: 14:18:22 PTAGE: 41 years EKG: SINUS TACHYCARDIA POSSIBLE INFERIOR INFARCT, AGE UNDETERMINED ABNORMAL ECG PREVIOUS TRACING : 06/08/2017 19.46 Compared to previous tracing, heart rate has increased. DOCTOR: Guanako Peters Interpretating Date/Time 06/09/2017 15:49:24
[2017-06-09] MEDS: ATENOLOL 50 MG TAB PO SCH ×2 (17:11)
[2017-06-09] MEDS ORDERED: PROMETHAZINE HCL 25 MG SUPP RECTAL ONE ×2 (17:30)
[2017-06-09] MEDS: PROMETHAZINE INJ 25 MG/ML VIAL IM PRN ×2 (21:01)
[2017-06-09] MEDS: ACETAMIN 325 MG/BUTALBITAL 50 MG/CAFFEINE 40 MG TAB PO PRN ×2 (21:01)
[2017-06-09] MEDS ORDERED: cloNIDine HCL 0.1 MG TAB PO ONE ×2 (23:30)
[2017-06-09] MEDS ORDERED: LORazepam 0.5 MG TAB PO ONE ×2 (23:30)
[2017-06-10 01:52] VITALS: BP_SYST 179; BP_SYST 191; BP_DIAS 91; BP_DIAS 98; PULSE 79; PULSE 81; RESP 20; TEMP 97.4; TEMP 98.6; O2SAT 100
[2017-06-10] MEDS: PROMETHAZINE INJ 25 MG/ML VIAL IM PRN ×4 (02:03→08:26)
[2017-06-10] MEDS: SODIUM CHLOR 0.9% 1000 ML INJ 1,000 ML IV SCH ×2 (02:11)
[2017-06-10] MEDS: ACETAMIN 325 MG/BUTALBITAL 50 MG/CAFFEINE 40 MG TAB PO PRN ×4 (02:55→09:27)
[2017-06-10 04:00] VITALS: BP 175/97; PULSE 81; RESP 20; TEMP 98.5; O2SAT 100
[2017-06-10] MEDS ORDERED: LORazepam 0.5 MG TAB PO ONE ×2 (04:00)
[2017-06-10] MEDS ORDERED: cloNIDine HCL 0.1 MG TAB PO ONE ×2 (04:00)
[2017-06-10] MEDS: RESP: ALBUTEROL 2.5 MG/IPRATROPIUM 0.5 MG NEB (SCH) INH ×4 (04:00→09:32)
[2017-06-10] MEDS ORDERED: CALCIUM CARBONATE 500 MG CHEWABLE TAB CHEW ONE ×2 (04:00)
[2017-06-10] MEDS: ATENOLOL 50 MG TAB PO SCH ×2 (05:30)
[2017-06-10] MEDS: INSULIN NovoLIN REGULAR SUPPLEMENTAL SCALE SQ SCH ×6 (05:32→12:00)
[2017-06-10] MEDS: CHLORHEXIDINE GLUCONATE 2 % 1 PACK (2 CLOTHS) TOP SCH ×2 (06:30)
--- NOTE | 2017-06-10 06:33 | RADRPT ---
EXAM DATE/TIME: 06/10/2017 05:36 [facility] COMPARISON: CHEST SINGLE AP, June 09, 2017, 4:59. INDICATIONS : Respiratory failure, short of breath MEDICAL HISTORY : respiratory failure SURGICAL HISTORY : None. ENCOUNTER: Subsequent ACUITY: 2 days PAIN SCORE: 0/10 LOCATION: Bilateral chest FINDINGS: A single view of the chest demonstrates the lungs to be symmetrically aerated without evidence of mas s, infiltrate or effusion. The cardiomediastinal contours are unremarkable. Osseous structures are intact. CONCLUSION: 1. No acute cardiopulmonary disease. Giancarlo Nobles MD on June 10, 2017 at 6:31 Board Certified Radiologist. This report was verified electronically.
[2017-06-10 08:00] VITALS: BP 177/87; PULSE 78; PULSE 94; RESP 19; TEMP 98.7; O2SAT 100
[2017-06-10] MEDS: CHLORHEXIDINE 0.12% (ORAL KIT) 15 ML CUP MT SCH ×2 (08:00)
[2017-06-10] MEDS: HEPARIN SODIUM - SQ 10,000 UNITS/ML VIAL SQ SCH ×2 (08:25)
[2017-06-10] MEDS: PANTOPRAZOLE SODIUM 40 MG VIAL IV PUSH SCH ×2 (08:25)
--- NOTE | 2017-06-10 08:28 | HHI.PR ---
Subjective Remarks Patient appears in nad. Says she had some diarrhea. She was eating. No cp, sob, n/v/d/c. Was seen by psych Dr Silevstre recommends inpatient psych admission. Objective Vitals Vital Signs Date Time Temp Pulse Resp B/P (MAP) Pulse Ox O2 Delivery O2 Flow Rate FiO2 06/10/17 04:00 98.5 81 20 175/97 (123) 100 06/10/17 01:52 98.6 81 20 191/91 (124) 100 06/10/17 01:52 97.4 79 20 179/98 (125) 100 06/09/17 22:30 177/87 (117) 06/09/17 22:00 Room Air 06/09/17 20:27 89 06/09/17 20:10 99.5 93 20 182/88 (119) 100 06/09/17 18:00 105 06/09/17 16:00 94 06/09/17 14:00 118 06/09/17 13:10 98 Nasal Cannula 4 06/09/17 12:00 123 06/09/17 12:00 50 06/09/17 10:10 100 40 06/09/17 10:00 108 06/09/17 08:29 50 I/O 06/09/17 06/09/17 06/09/17 06/10/17 06/10/17 06/10/17 07:00 15:00 23:00 07:00 15:00 23:00 Intake Total 1175 ml 425.5 ml 1200 ml 480 ml Output Total 4160 ml 2200 ml 500 ml Balance -2985 ml 425.5 ml -1000 ml -20 ml Intake Oral 200 ml 480 ml IV Total 1175 ml 425.5 ml 1000 ml Output Urine Total 3600 ml 2200 ml 500 ml Gastric Drainage Total 560 ml # Bowel Movements 3 2 1 Result Diagram: 06/09/1741406/09/17414 Imaging Last Impressions Chest X-Ray 06/10/17 0600 Signed Impressions: Service Date/Time: Saturday, June 10, 2017 05:36 - CONCLUSION: 1. No acute cardiopulmonary disease. Giancarlo Nobles MD Pelvis X-Ray 06/08/17 3639 Signed Impressions: Service Date/Time: Thursday, June 08, 2017 14:27 - CONCLUSION: Intact pelvis. Blair Adamson MD Head CT 06/08/17 1439 Signed Impressions: Service Date/Time: Thursday, June 08, 2017 14:54 - CONCLUSION: Negative noncontrast head CT. Blair Adamson MD Chest CT 06/08/17 1439 Signed Impressions: Service Date/Time: Thursday, June 08, 2017 14:58 - CONCLUSION: Mild airspace consolidation of both lungs and tiny right, very small left pleural effusions. Blair Adamson MD Cervical Spine CT 06/08/17 1439 Signed Impressions: Service Date/Time: Thursday, June 08, 2017 14:54 - CONCLUSION: 1. No acute fracture or acute appearing malalignment of the cervical spine. 2. Previous anterior and posterior fusion as above. No bony bridging at C2/C3 but the anterior fusion appears otherwise solid down to C6. Blair Adamson MD Abdomen/Pelvis CT 06/08/17 1439 Signed Impressions: Service Date/Time: Thursday, June 08, 2017 14:56 - CONCLUSION: No evidence of acute trauma the abdomen or pelvis. Large stool throughout the colon. Blair Adamson MD Objective Remarks GENERAL: 41 year old female currently in C-collar, awake alert and oriented, following commands SKIN: Warm and dry. HEAD: Atraumatic. Normocephalic. EYES: Pupils equal and round about 5 mm bilaterally and reactive. No scleral icterus. No injection or drainage. ENT: No nasal bleeding or discharge. Mucous membranes pink and moist. Orotracheally intubated NECK: Trachea midline. No JVD. CARDIOVASCULAR: Tachycardic, RR. S1, S2. No S4. Without murmur RESPIRATORY: Clear to auscultation. Breath sounds equal bilaterally. No accessory muscle use, no wheezing. GASTROINTESTINAL: Abdomen soft, non-tender, obese. Hypoactive bowel sounds are appreciated MUSCULOSKELETAL: Extremities without difficulty and peripheral edema. No obvious deformities. NEUROLOGICAL: Alert and oriented. Follows commands. A/P Assessment and Plan Neuro/Psych: Acute altered mental status possible hydroxyzine overdose, resolving Prior cervical discectomy/fusion CT brain 06/08 revealed no acute intracranial findings CT C-spine revealed previous posterior cervicooccipital and cervico thoracic fusion at the level T2. Discectomy and fusion procedure with anterior instrumentation of C2 through C6. Chronic appearing anterior compression deformity of the C5 vertebral body with kyphotic deformity at C5/C6. Was intubated and successfully extubated currently satting well on room air Urine drug screen currently pending along with EtOH, salicylates and acetaminophen Ammonia level 57, give lactulose, monitor. Holding home medications of mirtazapine 15 mg, fluoxetine 40 mg daily, gabapentin 600 mg 4 times a day, been serving 1 mg twice a day and hydroxyzine 50 mg twice a day F/U gabapentin level Poison control [id number] pending, continue supportive care recommendations CV: Sinus tachycardia Hypertension Continue normal saline at 84 cc an hour. Received 1 L crystalloid in ED 06/08 Currently not requiring vasopressors and/or antihypertensives. Follow-up EKG -concern for QTC prolongation with fluoxetine, and QRS widening with hydroxyzine Resp: Acute respiratory failure [facility] 16/550/08/09/100 Ventilator bundle Albuterol/ipratropium aerosols with albuterol aerosols every 2 hours. Dyspnea Spontaneous breathing trials daily-obtain parameters GI: Gastroesophageal reflux disease History of diarrhea NGT to [facility] Pantoprazole for GI prophylaxis Docusate sodium/senna 1 tablet twice a day for bowel regimen Status post 50 g sorbitol and charcoal for gastric decontamination Holding loperamide 2 mg as needed : Purdy catheter will be placed for accurate I's and O's in a critically ill patient Endo: Sliding-scale insulin if indicated to maintain euglycemia TSH level 1.950 WNL Renal: Monitor urine output Accurate I's and O's Heme: Microcytic anemia Check iron studies/TIBC and ferritin. No indications for transfusion of blood proximally at this time. ID: Monitor for infection FEN: Hyponatremia Replace electrolytes as clinically indicated per ICU electrolyte protocol MSK: PT evaluate and treat Access - Utilize peripheral IV. Remove right femoral Cordis once peripheral IVs established Prophylaxis - GI - pantoprazole - DVT - SCD/heparin subcutaneous Discussed with the patient, nurse. Discharge Planning DC to psychiatric unit today. Cleared medically for DC. Discussed with Nalini Trevino MD Jun 10, 2017 08:28
[2017-06-10] MEDS: DOCUSATE SODIUM 50 MG/SENNA 8.6 MG TAB PO SCH ×4 (09:00→09:20)
[2017-06-10] MEDS: ARTIFICIAL TEARS OPTH SOLN 15 ML BTL EACH EYE SCH ×2 (09:00)
[2017-06-10] MEDS: SODIUM CHLORIDE 0.9% FLUSH 10 ML FLUSH IV FLUSH SCH ×2 (09:30)
--- NOTE | 2017-06-10 09:34 | HHI.DS ---
Discharge Summary Admission Date Jun 08, 2017 at 15:19 Discharge Date: Jun 10, 2017 Admitting Diagnosis unresponsive, respiratory failure, overdose (1) Overdose ICD Code: T50.901A - Poisoning by unspecified drugs, medicaments and biological substances, accidental (unintentional), initial encounter Status: Acute (2) Respiratory failure ICD Code: J96.90 - Respiratory failure, unspecified, unspecified whether with hypoxia or hypercapnia Status: Acute (3) Unresponsive ICD Code: R41.89 - Other symptoms and signs involving cognitive functions and awareness Status: Acute (4) Adjustment disorder with depressed mood ICD Code: F43.21 - Adjustment disorder with depressed mood Procedures intubation/extubation Brief History - From Admission 41 year-old female 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 Her GCS was 3 on arrival she did not respond to Marcaine she was difficult access so that so that I was inserted to a tibia she remained hemodynamically normal with the low GCS. Open arrival she was orotracheally intubated. Fast negative exam by external trauma right femoral vein IV Cordis access was obtained and patient brought was brought to CAT scan for her workup. CBC/BMP: 06/09/17 0415 06/09/17 0415 Significant Findings Laboratory Tests Test 06/08/17 14:38 06/08/17 16:22 06/08/17 17:45 06/08/17 18:20 Red Blood Count 3.44 MIL/MM3 (4.00-5.30) Hemoglobin 8.4 GM/DL (11.6-15.3) Bedside Hemoglobin 9.5 G/DL (12.0-17.0) Hematocrit 26.7 % (35.0-46.0) Bedside Hematocrit 28.0 % (38.0-51.0) Mean Corpuscular Volume 77.4 FL (80.0-100.0) Mean Corpuscular Hemoglobin 24.5 PG (27.0-34.0) Mean Corpuscular Hemoglobin Concent 31.6 % (32.0-36.0) Red Cell Distribution Width 18.6 % (11.6-17.2) Mean Platelet Volume 6.5 FL (7.0-11.0) Neutrophils (%) (Auto) 82.6 % (16.0-70.0) Eosinophils (%) (Auto) 5.1 % (0.0-4.0) Lymphocytes # (Auto) 0.9 TH/MM3 (1.0-4.8) Eosinophils # (Auto) 0.5 TH/MM3 (0-0.4) Activated Partial Thromboplast Time 20.1 SEC (24.3-30.1) Bedside Sodium 130 MMOL/L (138-146) Bedside Glucose 116 MG/DL (60-95) Iron Level 26 MCG/DL (50-170) Percent Iron Saturation 5.8 % (20-50) Total Bilirubin 0.1 MG/DL (0.2-1.0) Albumin 3.3 GM/DL (3.4-5.0) Acetaminophen Level LESS THAN 2.0 MCG/ML Urine Barbiturates Screen POS (NEG) Blood Gas HCO3 14 mmol/L (22-26) Blood Gas Base Excess -10.9 mmol/L (-2-2) Arterial Blood pH 7.29 (7.380-7.420) Arterial Blood Partial Pressure CO2 31 mmHg (38-42) Arterial Blood Partial Pressure O2 180 mmHg (61-120) Arterial Blood Oxygen Content 11.1 Vol % (12.0-20.0) Blood Gas Hemoglobin 7.9 G/DL (12.0-16.0) Test 06/08/17 19:00 06/09/17 04:15 06/09/17 06:24 Ammonia 57 MCMOL/L (11-32) Red Blood Count 3.15 MIL/MM3 (4.00-5.30) Hemoglobin 7.9 GM/DL (11.6-15.3) Hematocrit 24.5 % (35.0-46.0) Mean Corpuscular Volume 78.0 FL (80.0-100.0) Mean Corpuscular Hemoglobin 25.0 PG (27.0-34.0) Red Cell Distribution Width 18.9 % (11.6-17.2) Mean Platelet Volume 6.5 FL (7.0-11.0) Neutrophils (%) (Auto) 76.8 % (16.0-70.0) Activated Partial Thromboplast Time 17.8 SEC (24.3-30.1) Blood Urea Nitrogen 6 MG/DL (7-18) Random Glucose 111 MG/DL (74-106) Total Protein 6.0 GM/DL (6.4-8.2) Albumin 3.0 GM/DL (3.4-5.0) Calcium Level 7.9 MG/DL (8.5-10.1) Aspartate Amino Transf (AST/SGOT) 14 U/L (15-37) Chloride Level 111 MEQ/L (98-107) Carbon Dioxide Level 20.9 MEQ/L (21.0-32.0) Estimat Glomerular Filtration Rate 88 ML/MIN (>89) Iron Level 22 MCG/DL (50-170) Percent Iron Saturation 5.8 % (20-50) Blood Gas HCO3 17 mmol/L (22-26) Blood Gas Base Excess -7.3 mmol/L (-2-2) Arterial Blood pH 7.35 (7.380-7.420) Arterial Blood Partial Pressure CO2 32 mmHg (38-42) Arterial Blood Partial Pressure O2 152 mmHg (61-120) Arterial Blood Oxygen Content 9.3 Vol % (12.0-20.0) Blood Gas Hemoglobin 6.6 G/DL (12.0-16.0) Imaging Last Impressions Chest X-Ray 06/10/17 0600 Signed Impressions: Service Date/Time: Saturday, June 10, 2017 05:36 - CONCLUSION: 1. No acute cardiopulmonary disease. Giancarlo Nobles MD Pelvis X-Ray [id number]/08/[id number] Signed Impressions: Service Date/Time: Thursday, June 08, 2017 14:27 - CONCLUSION: Intact pelvis. Blair Adamson MD Head CT [id number]/[id number] Signed Impressions: Service Date/Time: Thursday, June 08, 2017 14:54 - CONCLUSION: Negative noncontrast head CT. Blair Adamson MD Chest CT [id number] Signed Impressions: Service Date/Time: Thursday, June 08, 2017 14:58 - CONCLUSION: Mild airspace consolidation of both lungs and tiny right, very small left pleural effusions. Blair Adamson MD Cervical Spine CT [id number]/[id number] Signed Impressions: Service Date/Time: Thursday, June 08, 2017 14:54 - CONCLUSION: 1. No acute fracture or acute appearing malalignment of the cervical spine. 2. Previous anterior and posterior fusion as above. No bony bridging at C2/C3 but the anterior fusion appears otherwise solid down to C6. Blair Adamson MD Abdomen/Pelvis CT 06/08/17 1439 Signed Impressions: Service Date/Time: Thursday, June 08, 2017 14:56 - CONCLUSION: No evidence of acute trauma the abdomen or pelvis. Large stool throughout the colon. Blair Adamson MD PE at Discharge GENERAL: 41 year old female currently in C-collar, awake alert and oriented, following commands SKIN: Warm and dry. HEAD: Atraumatic. Normocephalic. EYES: Pupils equal and round about 5 mm bilaterally and reactive. No scleral icterus. No injection or drainage. ENT: No nasal bleeding or discharge. Mucous membranes pink and moist. Orotracheally intubated NECK: Trachea midline. No JVD. CARDIOVASCULAR: Tachycardic, RR. S1, S2. No S4. Without murmur RESPIRATORY: Clear to auscultation. Breath sounds equal bilaterally. No accessory muscle use, no wheezing. GASTROINTESTINAL: Abdomen soft, non-tender, obese. Hypoactive bowel sounds are appreciated MUSCULOSKELETAL: Extremities without difficulty and peripheral edema. No obvious deformities. NEUROLOGICAL: Alert and oriented. Follows commands. 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 Her GCS was 3 on arrival she did not respond to Marcaine she was difficult access so that so that I was inserted to a tibia she remained hemodynamically normal with the low GCS. Open arrival she was orotracheally intubated. Fast negative exam by external trauma right femoral vein IV Cordis access was obtained and patient brought was brought to CAT scan for her workup. Patient with AMS Acute encephalopathy possible hydroxyzine overdose, resolved. Prior cervical discectomy/fusion. CT brain 06/08 revealed no acute intracranial findings CT C-spine revealed previous posterior cervicooccipital and cervico thoracic fusion at the level T2. Discectomy and fusion procedure with anterior instrumentation of C2 through C6. Chronic appearing anterior compression deformity of the C5 vertebral body with kyphotic deformity at C5/C6. Was intubated and successfully extubated currently satting well on room air. Urine drug screen + barbiturates. Ammonia level 57, give lactulose, monitor. Holding home medications of mirtazapine 15 mg, fluoxetine 40 mg daily, gabapentin 600 mg 4 times a day and resume at DC. F/u gabapentin level and hold gabapentin if need.. DC hydroxyzine 50 mg twice a day F/U gabapentin level Poison control [id number], continue supportive care recommendations Patient improved DC to inpatient med/psych DC to psychiatric unit today. Cleared medically for DC. Discussed with psych. Follow up gabapentin level and hold gabapentin if need. Monitor BP closely and adjust BP meds if necessarily. Neuro/Psych: Acute encephalopathy possible hydroxyzine overdose, resolved Prior cervical discectomy/fusion CT brain 06/08 revealed no acute intracranial findings CT C-spine revealed previous posterior cervicooccipital and cervico thoracic fusion at the level T2. Discectomy and fusion procedure with anterior instrumentation of C2 through C6. Chronic appearing anterior compression deformity of the C5 vertebral body with kyphotic deformity at C5/C6. Was intubated and successfully extubated currently satting well on room air Urine drug screen currently pending along with EtOH, salicylates and acetaminophen Ammonia level 57, give lactulose, monitor. Holding home medications of mirtazapine 15 mg, fluoxetine 40 mg daily, gabapentin 600 mg 4 times a day, been serving 1 mg twice a day, resume atv DC. Follow up gabapentin level urine and hols if necessary. DC hydroxyzine 50 mg twice a day F/U gabapentin level Poison control [id number], continue supportive care recommendations CV: Sinus tachycardia Hypertension Continue normal saline at 84 cc an hour. Received 1 L crystalloid in ED 06/08 Currently not requiring vasopressors. On atenolol 50 mg po bid. Hydralazine prn and vasotec IV prn Follow-up EKG -concern for QTC prolongation with fluoxetine, and QRS widening with hydroxyzine. EKG stable. Resp: Acute respiratory failure PRVC 16/550/ Ventilator bundle Albuterol/ipratropium aerosols with albuterol aerosols every 2 hours. Dyspnea Spontaneous breathing trials daily-obtain parameters GI: Gastroesophageal reflux disease History of diarrhea NGT to [facility] Pantoprazole for GI prophylaxis Docusate sodium/senna 1 tablet twice a day for bowel regimen Status post 50 g sorbitol and charcoal for gastric decontamination Holding loperamide 2 mg as needed : Purdy catheter will be placed for accurate I's and O's in a critically ill patient Endo: Sliding-scale insulin if indicated to maintain euglycemia TSH level 1.950 WNL Renal: Monitor urine output Accurate I's and O's Heme: Microcytic anemia Check iron studies/TIBC and ferritin. With Iron deficiency. Staert ferrous sulfate. No indications for transfusion of blood proximally at this time. ID: Monitor for infection FEN: Hyponatremia Replace electrolytes as clinically indicated per ICU electrolyte protocol MSK: PT evaluate and treat Access - Utilize peripheral IV. Remove right femoral Cordis once peripheral IVs established Prophylaxis - GI - pantoprazole - DVT - SCD/heparin subcutaneous Discussed with the patient, nurse. Discharge Planning DC to psychiatric unit today. Cleared medically for DC. Discussed with psych. Follow up gabapentin level and hold gabapentin if need. Monitor BP closely and adjust BP meds if necessarily. Pt Condition on Discharge: Stable Discharge Disposition: Disc to Psych Care Fac Discharge Time: > 30 minutes Discharge Instructions DIET: Follow Instructions for: As Tolerated, No Restrictions Activities you can perform: Regular-No Restrictions Follow up Referrals: PCP Follow-up - 2-3 Days New Medications: Ferrous Sulfate (Ferosul) 325 Mg (65 Mg Iron) Tablet 325 MG PO BID@12,17 for iron deficiency anemia, #60 MG Continued Medications: Atenolol (Atenolol) 50 Mg Tab 50 MG PO BID for Blood Pressure Management, #60 TAB 0 Refills Clonidine (Clonidine) 0.2 Mg Tab 0.2 MG PO TID for Blood Pressure Management, #60 TAB 0 Refills Fluoxetine (Fluoxetine) 40 Mg Cap 40 CAP PO DAILY, #30 CAP 0 Refills Gabapentin (Gabapentin) 600 Mg Tab 600 MG PO QID, #60 TAB 0 Refills Loperamide (Loperamide) 2 Mg Cap 2 MG PO DIRECTED PRN for DIARRHEA, CAP 0 Refills One capsule after each loose stool. Not to exceed 8 capsules per day. Mirtazapine (Mirtazapine) 15 Mg Tab 15 MG PO HS for Depression Control, #30 TAB 0 Refills Pantoprazole (Pantoprazole) 40 Mg Tab 40 MG PO BID for Reflux, #30 TAB 0 Refills Discontinued Medications: Benztropine (Benztropine) 0.5 Mg Tab 1 MG PO BID, #60 TAB 0 Refills Hydroxyzine Pamoate (Hydroxyzine Pamoate) 50 Mg Cap 50 MG PO BID, CAP 0 Refills Nalini Yeung MD Jun 10, 2017 09:34
[2017-06-10] MEDS ORDERED: FERR325T20 PO ×2 (09:35)
[2017-06-10 12:00] VITALS: BP 182/103; PULSE 77; RESP 19; TEMP 98.6; O2SAT 100
[2017-06-10] MEDS ORDERED: FERROUS SULFATE 325 MG (65 MG ELEMENTAL IRON) TAB PO SCH ×2 (12:00)
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
[2017-06-10 12:55] VITALS: BP_SYST 182; BP_DIAS 100; BP_DIAS 103
[2017-06-10] MEDS ORDERED: hydrALAZINE HCL 10 MG TAB PO PRN ×2 (13:30)
[2017-06-10] MEDS ORDERED: ENALAPRILAT 2.5 MG/2 ML VIAL IV PUSH PRN ×2 (13:30)
== END 2017-06-10 13:45 | DRG 917 ==
LOC: NEPI 14:25 → EDBD 15:19 → NEDA 15:19 → N03A 15:44 → N04A 06-09 20:06
PROVIDERS: ADMIT Hospitalist; ATTEND Hospitalist
PROC: 5A1935Z Respiratory Ventilation, Less than 24 Consecutive Hours (ICD-10-PCS; principal; 2017-06-08)
PROC: 0BH17EZ Insertion of Endotracheal Airway into Trachea, Via Natural or Artificial Opening (ICD-10-PCS; 2017-06-08)
PROC: 06HM33Z Insertion of Infusion Device into Right Femoral Vein, Percutaneous Approach (ICD-10-PCS; 2017-06-08)
DX: T43.591A Poisoning by other antipsychotics and neuroleptics, accidental (unintentional), initial encounter (principal); J96.00 Acute respiratory failure, unspecified whether with hypoxia or hypercapnia; G93.40 Encephalopathy, unspecified; E87.1 Hypo-osmolality and hyponatremia; M48.52XA Collapsed vertebra, not elsewhere classified, cervical region, initial encounter for fracture; I10 Essential (primary) hypertension; R40.2430 Glasgow coma scale score 3-8, unspecified time; R00.0 Tachycardia, unspecified; K21.9 Gastro-esophageal reflux disease without esophagitis; D50.9 Iron deficiency anemia, unspecified; S20.229A Contusion of unspecified back wall of thorax, initial encounter; F32.9 Major depressive disorder, single episode, unspecified; F43.21 Adjustment disorder with depressed mood; Z62.810 Personal history of physical and sexual abuse in childhood
CPT/HCPCS: 31500; 36556; 36600; 70450; 71010; 71260; 72125; 72170; 74177; 76937; 80053; 80076; 80171; 80307; 82010; 82140; 82150; 82272; 82435; 82550; 82565; 82728; 82805; 82947; 82948; 83540; 83550; 83605; 83690; 83735; 84100; 84132; 84295; 84443; 84466; 84520; 84702; 85025; 85610; 85730; 86850; 86900; 86901; 87641; 93005; 94002; 94003; 94640; 94664; 96374; 99291; C9113; G0390; J1644; J2550; J3010; J3480; J7030; Q9967

== ENCOUNTER 2017-06-10 13:51 | Inpatient (IN) | payer SELFPAY ==
[~2017-06-10 13:51] MED LIST: ATEN50TA PO; BENZ0.5T PO; CLON0.2T PO; FERR325T20 PO; FLUO40CA PO; GABA600T PO; HYDR50CA PO; LOPE2CAP PO; MIRTA15 PO; PANT40TA3 PO
[2017-06-10 14:01] VITALS: BP 190/102; PULSE 86; RESP 22; TEMP 98.1; O2SAT 100
[2017-06-10] MEDS ORDERED: LORazepam 2 MG/ML VIAL IM PRN ×2 (14:45→15:00)
[2017-06-10] MEDS ORDERED: LORazepam 0.5 MG TAB PO PRN (14:45)
[2017-06-10] MEDS ORDERED: FLUoxetine HCL 20 MG CAP PO SCH (14:45)
[2017-06-10] MEDS ORDERED: ALUMINUM/MAGNESIUM/SIMETH 30 ML CUP PO PRN (14:45)
[2017-06-10] MEDS ORDERED: cloNIDine HCL 0.2 MG TAB PO ONE (15:00)
[2017-06-10] MEDS ORDERED: LORazepam 1 MG TAB PO PRN (15:00)
[2017-06-10] MEDS ORDERED: METOCLOPRAMIDE HCL 10 MG TAB PO ONE (15:30)
[2017-06-10 15:57] VITALS: BP 165/95; PULSE 91
[2017-06-10] MEDS ORDERED: MAGNESIUM HYDROXIDE SUSP 30 ML CUP PO PRN (16:00)
[2017-06-10] MEDS ORDERED: LOPERAMIDE HCL 2 MG CAP PO PRN (16:00)
[2017-06-10] MEDS: FERROUS SULFATE 325 MG (65 MG ELEMENTAL IRON) TAB PO SCH (17:00)
[2017-06-10] MEDS ORDERED: ENALAPRILAT 2.5 MG/2 ML VIAL IV PUSH PRN (17:15)
[2017-06-10] MEDS: ATENOLOL 50 MG TAB PO SCH (17:39)
[2017-06-10] MEDS: cloNIDine HCL 0.2 MG TAB PO SCH (17:40)
[2017-06-10] MEDS: ACETAMINOPHEN 325 MG TAB PO PRN ×2 (17:40→21:45)
[2017-06-10] MEDS ORDERED: GABAPENTIN 300 MG CAP PO SCH (18:00)
[2017-06-10 18:41] VITALS: BP 176/100; PULSE 82; RESP 24; TEMP 98; O2SAT 93
[2017-06-10] MEDS: hydrALAZINE HCL 10 MG TAB PO PRN (21:11)
[2017-06-10] MEDS: PANTOPRAZOLE SOD 40 MG DELAYED RELEASE TAB PO SCH (21:11)
[2017-06-10] MEDS: MIRTAZAPINE 15 MG TAB PO SCH (21:11)
[2017-06-10] MEDS: PROMETHAZINE HCL 25 MG TAB PO PRN (21:41)
[2017-06-11] MEDS: ACETAMINOPHEN 325 MG TAB PO PRN ×6 (01:51→22:56)
[2017-06-11] MEDS: PROMETHAZINE HCL 25 MG TAB PO PRN ×3 (05:33→22:56)
[2017-06-11 06:01] VITALS: BP 187/96; PULSE 80; RESP 20; TEMP 98; O2SAT 97
[2017-06-11] MEDS: hydrALAZINE HCL 10 MG TAB PO PRN (06:16)
[2017-06-11] MEDS: PANTOPRAZOLE SOD 40 MG DELAYED RELEASE TAB PO SCH ×2 (07:34→20:33)
[2017-06-11] MEDS: ATENOLOL 50 MG TAB PO SCH ×2 (07:35→20:33)
[2017-06-11 07:38] VITALS: BP 179/100; PULSE 84
[2017-06-11] MEDS: cloNIDine HCL 0.2 MG TAB PO SCH ×3 (07:52→18:00)
--- NOTE | 2017-06-11 08:34 | PD.CONS ---
HPI Service [facility] Hospitalists Consult Requested By Dr. Feliz Reason for Consult HTN and abdominal pain Primary Care Physician Unknown Diagnoses: History of Present Illness Pt is a 41 yr old female w PMHx borderline personality d/o, depression, GERD, chronic diarrhea, HTN, migraine MENDOZA, supraventricular tachycardia/heart murmur, PTSD is admitted to the inpatient psychiatric unit because of drug overdose. Pt tells me that she doesn't remember the events and doesn't know "where the atarax overdose comes from" as she denies being on atarax. Pt states that she was alone at home, had just taken a shower as it was still very early that morning, then tells me that she was found down the stairs unresponsive. Pt was admitted to the ICU unit and was intubated then. She then got extubated and transferred to the hospitalist service. Pt denied any CP/SOB/lighheadeness or dizziness prior to the event. states that her mother last september and she has been depressed because of this. Pt tells me that right now she feels nauseous, has a headache and complains to me that she is only getting tylenol and wants her fioricet. she also wants her gabapentin. she denies any CP /SOB. states she vomitted a few times and has been dry heaving. allergic to zofran. Discussed w RN, pt was transferred from medical floor on 06/10/17. Per RN, recommendations have been to hold gabapentin until level comes back and avoid fioricet. Pt never complained to me about a headache but then starts asking about her meds and wants to have them then tells me that she has a headache. Hospitalist service consulted for HTN and abdominal pain Review of Systems Except as stated in HPI: all other systems reviewed are Neg Past Family Social History Allergies: Coded Allergies: Sulfa (Sulfonamide Antibiotics) (Verified Allergy, Severe, 06/10/17) azithromycin (Verified Allergy, Severe, 06/10/17) ondansetron (Verified Allergy, Severe, Swelling, 06/09/17) cyclobenzaprine (Verified Allergy, Intermediate, 06/09/17) propoxyphene (Verified Allergy, Intermediate, 06/09/17) Past Medical History borderline personality d/o, depression, GERD, chronic diarrhea, HTN, migraine MENDOZA , supraventricular tachycardia/heart murmur, PTSD Past Surgical History neck sx: cervical fusion/discectomy C2-C6. hysterectomy appendectomy 2 c/s Reported Medications Reported Meds & Active Scripts Active Ferosul (Ferrous Sulfate) 325 Mg (65 Mg Iron) Tablet 325 Mg PO BID@ Reported Atenolol 50 Mg Tab 50 Mg PO BID Clonidine (Clonidine HCl) 0.2 Mg Tab 0.2 Mg PO TID Loperamide (Loperamide HCl) 2 Mg Cap 2 Mg PO DIRECTED PRN One capsule after each loose stool. Not to exceed 8 capsules per day. Pantoprazole (Pantoprazole Sodium) 40 Mg Tab 40 Mg PO BID Gabapentin 600 Mg Tab 600 Mg PO QID Fluoxetine (Fluoxetine HCl) 40 Mg Cap 40 Cap PO DAILY Mirtazapine 15 Mg Tab 15 Mg PO HS Family History mother: DM, COPD father unknown as he wasn't in her life Social History smokes 5 cigs/day x 1 year denies alcohol use and illegal drug use Physical Exam Vital Signs Vital Signs Date Time Temp Pulse Resp B/P (MAP) Pulse Ox O2 Delivery O2 Flow Rate FiO2 06/11/17 07:38 84 179/100 (126) 06/11/17 06:01 98.0 80 20 187/96 (126) 97 06/10/17 18:41 98.0 82 24 176/100 (125) 93 06/10/17 15:57 91 165/95 (118) 06/10/17 14:01 98.1 86 22 190/102 (131) 100 Manual Cuff/Palpation Physical Exam GENERAL: laying in bed, somewhat anxious SKIN: No rashes, ecchymoses or lesions. Cool and dry. HEAD: Atraumatic. Normocephalic. No temporal or scalp tenderness. EYES: Pupils equal, dilated, round and reactive. Extraocular motions intact. No scleral icterus. No injection or drainage. ENT: Nose without drainage. Throat without erythema, tonsillar hypertrophy or exudate. Uvula midline. Airway patent. NECK: Trachea midline. Supple, nontender, no meningeal signs. CARDIOVASCULAR: Regular rate and rhythm. I didn't appreciate a murmur. RESPIRATORY: Clear to auscultation. Breath sounds equal bilaterally. No wheezes GASTROINTESTINAL: Abdomen soft, some discomfort w deep palpation, nondistended. No palpable masses. No guarding. MUSCULOSKELETAL: Extremities without edema. No joint tenderness, effusion, or edema noted. No calf tenderness. Negative Homans sign bilaterally. NEUROLOGICAL: Awake and alert. Cranial nerves II through XII intact. Motor and sensory grossly within normal limits. Five out of 5 muscle strength in all muscle groups. Normal speech. Assessment and Plan Assessment and Plan borderline personality d/o, depression, PTSD, atarax overdose: Management per psychiatry HTN: uncontrolled. RN notified me that pt refuses to take lisinopril as she states that it makes her BP go up. Pt currently on clonidine 0.2mg po TID and atenolol 50mg po BID. Will d/c lisinopril and switch to amlodipine 10mg po daily. consider starting her on hydralazine scheduled if BP's not better controlled. She also has prn vasotec and hydralazine. monitor. will put her on a heart healthy diet N/V: she has po phenergan however if unable to take po may take IV. Abdominal pain: unsure what the etiology is. Pt appears comfortable and didn't complain to me. Will check CMP, lipase, abdominal u/s/KUB GERD: on protonix BID chronic diarrhea: on loperamide migraine MENDOZA: will hold off on fioricet per psych recs. Continue tylenol. Consider giving her one time dose of sumatriptan if worsening. supraventricular tachycardia/heart murmur: on atenolol Thank you for allowing me to take part of Mrs Huerta's care, I will continue to follow Code Status full Discussed Condition With patient and RN Nhi John MD Jun 11, 2017 08:34
[2017-06-11] MEDS ORDERED: PROMETHAZINE INJ 25 MG/ML VIAL IM PRN (08:45)
[2017-06-11] MEDS ORDERED: LISINOPRIL 5 MG TAB PO SCH (09:00)
[2017-06-11] MEDS ORDERED: FLUoxetine HCL 20 MG CAP PO SCH (09:00)
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
--- NOTE | 2017-06-11 10:11 | RADRPT ---
EXAM DATE/TIME: 06/11/2017 09:27 [facility] COMPARISON: CT ABDOMEN & PELVIS W CONTRAST, June 08, 2017, 14:56. INDICATIONS : Abdominal pain. MEDICAL HISTORY : Hypertension. Arthritis. Seizures. Migrianes. Tachycardia. COPD. Ulcer. PTSD. Anxiety. SURGICAL HISTORY : section. Hysterectomy. Cervical fusion. Blood transfusions. ENCOUNTER: Initial ACUITY: 4-6 days PAIN SCORE: 8/10 LOCATION: Abdomen. MEASUREMENTS: LIVER: 15.6 cm length COMMON DUCT: 5 mm RIGHT KIDNEY: 11.4 x 5.0 x 5.2 cm LEFT KIDNEY: 13.5 x 4.5 x 5.0 cm SPLEEN: 10.7 cm length AORTA: 2.2cm maximal FINDINGS: LIVER: Normal echotexture without focal lesion or ductal dilatation. COMMON DUCT: No intraluminal mass or stone visualized. GALLBLADDER: Contains no stones, demonstrates no wall thickening or pericholecystic fluid. PANCREAS: Left kidney is normal visualized secondary to overlying bowel gas. RIGHT KIDNEY: No hydronephrosis, stone or mass. LEFT KIDNEY: No hydronephrosis, stone or mass. SPLEEN: No focal lesion. AORTA: Non aneurysmal. IVC: Within normal limits. CONCLUSION: No acute finding is identified. The pancreas is not adequately visualized secondary to bowel gas. Blair Orta MD on June 11, 2017 at 10:07 Board Certified Radiologist. This report was verified electronically.
[2017-06-11 11:24] VITALS: BP 160/93; PULSE 66; RESP 20; TEMP 98.3; O2SAT 100
[2017-06-11] MEDS: FERROUS SULFATE 325 MG (65 MG ELEMENTAL IRON) TAB PO SCH ×2 (12:00→17:00)
[2017-06-11 12:35] LABS: BICARBONATE 24.7 MEQ/L (21.0-32.0); MAGNESIUM 1.7 MG/DL (1.5-2.5)
[2017-06-11 12:38] LABS: POTASSIUM 2.4 MEQ/L (3.5-5.1)
[2017-06-11 13:35] LABS: ALKALINE PHOSPHATASE 124 U/L (45-117); ALT (GPT) 15 U/L (10-53); ANION GAP 12 MEQ/L (5-15); AST (GOT) 19 U/L (15-37); BICARBONATE 23.7 MEQ/L (21.0-32.0); BLOOD UREA NITROGEN 4 MG/DL (7-18); CHLORIDE 90 MEQ/L (98-107); GLOMERULAR FILTRATION RATE 138 ML/MIN (>89); SODIUM (NA) 126 MEQ/L (136-145); TOTAL BILIRUBIN ADULT 0.4 MG/DL (0.2-1.0)
[2017-06-11 13:55] LABS: POTASSIUM 2.8 MEQ/L (3.5-5.1)
[2017-06-11] MEDS ORDERED: POTASSIUM CHLORIDE 20 MEQ CONTROLLED RELEASE TAB PO ONE (14:15)
[2017-06-11] MEDS: POTASSIUM CHLOR 20 MEQ PREMIX 100 ML IV SCH ×2 (14:33→17:13)
--- NOTE | 2017-06-11 14:54 | RADRPT ---
EXAM DATE/TIME: 06/11/2017 14:13 [facility] COMPARISON: No previous studies available for comparison. INDICATIONS : Abdominal pain and vomiting. MEDICAL HISTORY : Hypertension. Arthritis. Seizures. Migrianes. Tachycardia. COPD. Ulcer. SURGICAL HISTORY : section. Appendectomy. ENCOUNTER: Initial ACUITY: 4 - 6 days PAIN SCORE: 8/10 LOCATION: Bilateral abdomen. FINDINGS: Intestinal gas pattern is nonspecific and benign. There are phleboliths noted over the pelvis. No tolu picious calcific densities. Nothing to suggest mass or visceromegaly. Regional skeleton is intact. CONCLUSION: Nonspecific, benign abdomen appearance. Blair Beltran MD on June 11, 2017 at 14:48 Board Certified Radiologist. This report was verified electronically.
[2017-06-11] MEDS ORDERED: POTASSIUM CHLORIDE INJ 20 MEQ in SODIUM CHLOR 0.9% 1000 ML INJ 1,000 ML IV SCH (15:00)
[2017-06-11 17:18] VITALS: BP 163/88; PULSE 73; RESP 18; TEMP 97.4; O2SAT 93
[2017-06-11] MEDS: NS + KCL 20 MEQ INJ 1,000 ML IV SCH ×2 (18:30→20:40)
[2017-06-11] MEDS: MIRTAZAPINE 15 MG TAB PO SCH (20:32)
[2017-06-11] MEDS: DULoxetine HCl DR 20 MG CAP PO SCH (20:33)
[2017-06-11 22:39] VITALS: BP 163/88; PULSE 73; RESP 18; TEMP 97.4; O2SAT 93
[2017-06-12 05:45] VITALS: BP 182/98; PULSE 75; RESP 18; TEMP 98.2; O2SAT 100
[2017-06-12] MEDS: hydrALAZINE HCL 10 MG TAB PO PRN (06:00)
[2017-06-12] MEDS: cloNIDine HCL 0.2 MG TAB PO SCH ×3 (08:30→18:02)
[2017-06-12] MEDS: ATENOLOL 50 MG TAB PO SCH ×2 (08:30→20:56)
[2017-06-12] MEDS: PANTOPRAZOLE SOD 40 MG DELAYED RELEASE TAB PO SCH ×2 (08:30→20:56)
[2017-06-12] MEDS: ACETAMINOPHEN 325 MG TAB PO PRN ×3 (08:31→18:02)
[2017-06-12] MEDS: PROMETHAZINE HCL 25 MG TAB PO PRN ×2 (08:31→18:02)
[2017-06-12] MEDS: DULoxetine HCl DR 20 MG CAP PO SCH ×3 (08:32→20:56)
[2017-06-12] MEDS ORDERED: FLUoxetine HCL 20 MG CAP PO SCH (09:00)
[2017-06-12 12:00] LABS: POTASSIUM 2.9 MEQ/L (3.5-5.1)
[2017-06-12] MEDS: FERROUS SULFATE 325 MG (65 MG ELEMENTAL IRON) TAB PO SCH ×2 (12:00→17:00)
--- NOTE | 2017-06-12 12:38 | PD.TTN ---
Patient Problems 1. Discharge planning 2. Medication compliance 3. Knowledge deficit 4. Lack of coping skills Progress Toward Goals Provider Present: Dr. Derian Kerr Provider Input: Patient medication is being adjusted to stop one medication and add another antidepressant Nurse(s) Present: Kelly Henderson, RN Nurse(s) Input: Patient refused new medication, continues to ask for other medication; she is eating meals. Patient lacks motivation Psychiatric Counselors Present: LINNEA Virk Psych Therapist Input: Counselor reviewed patient treatment plan and discussed goals, and plans. Patient is encouraged to participate with group activities Group Spec/RT/OT/QUINONEZ Present: DEVI Yoon Group Spec/RT/OT/QUINONEZ Input: Patient attends selected groups, will encouraged to participate with more groups and activities Documentation Scribe: LINNEA Virk Sandra LMHC Jun 12, 2017 12:38
[2017-06-12] MEDS: POTASSIUM CHLORIDE 20 MEQ CONTROLLED RELEASE TAB PO ONE ×2 (13:00→13:34)
[2017-06-12 13:24] LABS: BICARBONATE 21.2 MEQ/L (21.0-32.0)
[2017-06-12] MEDS: POTASSIUM CHLOR 20 MEQ PREMIX 100 ML IV SCH ×2 (13:34→15:26)
[2017-06-12] MEDS ORDERED: POTASSIUM CHLORIDE 20 MEQ PWD PACKET PO ONE (15:45)
[2017-06-12] MEDS ORDERED: MENTHOL LOZENGE BUCCAL ONE (17:00)
[2017-06-12] MEDS ORDERED: MENTHOL LOZENGE BUCCAL PRN (17:00)
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
--- NOTE | 2017-06-12 17:26 | HHI.PR ---
Subjective Remarks States she feels a lot better. not able to tolerate po KCl (pill form) but doing ok w IV. wants something for cough like cough drops. Asks about her fioricet and gabapentin and insists on being on these. She now tells me that she takes phenobarbital for seizures 60.8mg po TID. however during my interview she never mentioned hx of sx to me and had denied this when I had asked her. Objective Vitals Vital Signs Date Time Temp Pulse Resp B/P (MAP) Pulse Ox O2 Delivery O2 Flow Rate FiO2 06/12/17 09:31 16 06/12/17 05:45 98.2 75 18 182/98 (126) 100 06/11/17 22:39 97.4 73 18 163/88 (113) 93 06/11/17 17:18 97.4 73 18 163/88 (113) 93 I/O 06/11/17 06/11/17 06/11/17 06/12/17 06/12/17 06/12/17 07:00 15:00 23:00 07:00 15:00 23:00 Intake Total 960 ml 480 ml 240 ml 100 ml Balance 960 ml 480 ml 240 ml 100 ml Intake Oral 960 ml 480 ml 240 ml IV Total 100 ml # Voids 5 3 2 Result Diagram: 06/12/17 0930 Imaging Last Impressions Abdomen X-Ray 06/11/17 0000 Signed Impressions: Service Date/Time: Sunday, June 11, 2017 14:13 - CONCLUSION: Nonspecific , benign abdomen appearance. Blair Beltran MD Abdomen Ultrasound 06/11/17 0000 Signed Impressions: Service Date/Time: Sunday, June 11, 2017 09:27 - CONCLUSION: No acute finding is identified. The pancreas is not adequately visualized secondary to bowel gas. Blair Orta MD Objective Remarks GENERAL: laying in bed, somewhat anxious EYES: Extraocular motions intact. No scleral icterus. No injection or drainage. ENT: Nose without drainage. Airway patent. NECK: Trachea midline. CARDIOVASCULAR: Regular rate and rhythm. I didn't appreciate a murmur. RESPIRATORY: Clear to auscultation. Breath sounds equal bilaterally. No wheezes GASTROINTESTINAL: Abdomen soft, non tender, nondistended. MUSCULOSKELETAL: Extremities without edema. No calf tenderness. Negative Homans sign bilaterally. NEUROLOGICAL: Awake and alert. Cranial nerves II through XII intact. Motor and sensory grossly within normal limits. A/P Assessment and Plan borderline personality d/o, depression, PTSD, atarax overdose: Management per psychiatry HTN: uncontrolled. RN notified me that pt refuses to take lisinopril as she states that it makes her BP go up. Pt currently on clonidine 0.2mg po TID and atenolol 50mg po BID. now on amlodipine 10mg po daily. consider starting her on hydralazine scheduled if BP's not better controlled. BP this pm was 142/90. prn vasotec and hydralazine available. monitor. on a heart healthy diet Hypokalemia: slowly correcting. Continue to monitor. Replenish w IV KCL and powder KCl as pt not tolerating the pills. May need to try the effervescent kind. N/V: she has po phenergan however if unable to take po may take IV. Abdominal pain:no complaints today. unsure what the etiology is. LFTs wnl, lipase wnl, abdominal u/s/KUB w no acute process GERD: on protonix BID chronic diarrhea: on loperamide migraine MENDOZA: will hold off on fioricet per psych recs. Continue tylenol. Consider giving her one time dose of sumatriptan if worsening. supraventricular tachycardia/heart murmur: on atenolol ?seizure d/o: pt now telling me that she has a hx of sz d/o on phenobarbital 60.8mg po TID when she didn't mention this to me before. Pt is not a very reliable historian, will check EEG. get neuro eval for recs Discharge Planning per primary team Nhi John MD Jun 12, 2017 17:26
[2017-06-12 18:00] VITALS: BP 144/85; PULSE 80; RESP 18; TEMP 97.2; O2SAT 99
[2017-06-12] MEDS: BENZONATATE 100 MG CAP PO PRN (18:02)
[2017-06-12] MEDS: MIRTAZAPINE 15 MG TAB PO SCH (20:56)
[2017-06-13] MEDS: NS + KCL 20 MEQ INJ 1,000 ML IV SCH (06:14)
[2017-06-13 06:22] VITALS: BP 173/80; PULSE 78; RESP 18; TEMP 98.4; O2SAT 98
[2017-06-13] MEDS: ATENOLOL 50 MG TAB PO SCH ×2 (08:31→20:40)
[2017-06-13] MEDS: PANTOPRAZOLE SOD 40 MG DELAYED RELEASE TAB PO SCH ×2 (08:31→20:40)
[2017-06-13] MEDS: DULoxetine HCl DR 20 MG CAP PO SCH ×2 (08:31→20:40)
[2017-06-13] MEDS: cloNIDine HCL 0.2 MG TAB PO SCH ×3 (08:31→17:47)
[2017-06-13] MEDS ORDERED: FLUoxetine HCL 10 MG CAP PO SCH (09:00)
[2017-06-13] MEDS: PROMETHAZINE HCL 25 MG TAB PO PRN ×2 (09:22→21:18)
[2017-06-13] MEDS: ACETAMINOPHEN 325 MG TAB PO PRN ×3 (09:23→21:18)
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
--- NOTE | 2017-06-13 11:05 | HHI.PR ---
Subjective Remarks Follow-up for hypokalemia No overnight events, denies any chest pain or palpitations. Did not receive fluids yesterday because of malfunctioning peripheral IV line Objective Vitals Vital Signs Date Time Temp Pulse Resp B/P (MAP) Pulse Ox O2 Delivery O2 Flow Rate FiO2 06/13/17 06:22 98.4 78 18 173/80 (111) 98 06/12/17 18:00 97.2 80 18 144/85 (104) 99 I/O 06/12/17 06/12/17 06/12/17 06/13/17 06/13/17 06/13/17 07:00 15:00 23:00 07:00 15:00 23:00 Intake Total 240 ml 749 ml Balance 240 ml 749 ml Intake Oral 240 ml 240 ml IV Total 509 ml # Voids 2 4 5 # Bowel Movements 0 Result Diagram: 06/12/17929 Objective Remarks Not in distress, well-nourished, looks stated age Normal rate and regular rhythm, no murmurs gallops or rubs appreciated. Clear to auscultation and symmetric bilaterally, normal respiratory effort. Normal bowel sounds, soft, non-tender, nondistended, no guarding. No edema AAO x3, no cranial nerve deficits, moves all 4 extremities, no focal neurologic deficits A/P Assessment and Plan borderline personality d/o, depression, PTSD, atarax overdose: Management per psychiatry HTN: uncontrolled. Pt currently on clonidine 0.2mg po TID and atenolol 50mg po BID. now on amlodipine 10mg po daily. Increase hydralazine. Prn vasotec and hydralazine available. monitor. on a heart healthy diet Hypokalemia: slowly correcting. Continue to monitor. Continue IV potassium, will give another bolus and oral replacement, check magnesium. Check BMP tomorrow Hypomagnesemia-magnesium sulfate 2 g today. N/V: she has po phenergan however if unable to take po may take IV. Abdominal pain:no complaints today. unsure what the etiology is. LFTs wnl, lipase wnl, abdominal u/s/KUB w no acute process, abdominal pain resolved GERD: on protonix BID chronic diarrhea: on loperamide migraine MENDOZA: will hold off on fioricet per psych recs. Continue tylenol. Neurology following, started on Topamax. supraventricular tachycardia/heart murmur: on atenolol ?seizure d/o: pt now telling me that she has a hx of sz d/o on phenobarbital 60.8mg po TID when she didn't mention this to me before. Pt is not a very reliable historian, follow-up EEG, neurology started Topamax. Follow-up MRI. Roman Valente MD Jun 13, 2017 11:04
[2017-06-13] MEDS: FERROUS SULFATE 325 MG (65 MG ELEMENTAL IRON) TAB PO SCH ×2 (12:57→17:47)
[2017-06-13 13:08] LABS: ANION GAP 10 MEQ/L (5-15); AST (GOT) 4 U/L (15-37); BICARBONATE 22.8 MEQ/L (21.0-32.0); BLOOD UREA NITROGEN 7 MG/DL (7-18); CHLORIDE 98 MEQ/L (98-107); GLOMERULAR FILTRATION RATE 129 ML/MIN (>89); MAGNESIUM 1.8 MG/DL (1.5-2.5); POTASSIUM 3.3 MEQ/L (3.5-5.1); SODIUM (NA) 131 MEQ/L (136-145)
[2017-06-13 13:09] LABS: ALT (GPT) 17 U/L (10-53)
[2017-06-13 13:35] LABS: ALKALINE PHOSPHATASE 115 U/L (45-117); BETA HCG QUANT 2 MIU/ML (0-5); PHENOBARBITAL 7.3 MCG/ML (15.0-40.0); TOTAL BILIRUBIN ADULT 0.3 MG/DL (0.2-1.0)
[2017-06-13] MEDS: BENZONATATE 100 MG CAP PO PRN (13:35)
[2017-06-13] MEDS: TOPIRAMATE 25 MG TAB PO SCH ×2 (13:36→20:40)
[2017-06-13] MEDS ORDERED: POTASSIUM CHLORIDE 25 MEQ EFFERVESCENT TAB PO ONE (14:30)
[2017-06-13] MEDS ORDERED: POTASSIUM CHLOR 20 MEQ PREMIX 100 ML IV SCH ×2 (14:30→22:00)
[2017-06-13] MEDS ORDERED: GADODIAMIDE PF 287 MG/ML 20 ML VIAL (for RAD MRI) IVCONTRAST ONE (15:18)
[2017-06-13] MEDS: MAGNESIUM SULFATE 1 GM PREMIX 100 ML IV SCH ×2 (15:30→16:08)
--- NOTE | 2017-06-13 15:52 | HHI.PYPN ---
Subjective Remarks Patient seen follow, chart review. Patient found sitting on hospital bed, cooperative today. States feeling much better, have visited with her boyfriend and feels that he is optimistic that she will continue to improve. She states that boyfriend stated that she "sounded better". She reports he drinking well the probable bowel movement. Patient states that she feeling able to cope better with recent loss of her mother and states that she is "in a better place ". Patient denies any suicide ideation at this time. Review of Systems Except as stated in HPI: all other systems reviewed are Neg Mental Status Examination Appearance: Appropriate Consciousness: Alert Orientation: Person, Place, Date/Time Motor Activity: Normal gait Speech: Unremarkable Language: Adequate Fund of Knowledge: Adequate Attention and Concentration: Adequate Memory: Impaired (events surrounding the suicide attempt) Mood: Other ("better") Affect: Other (restricted) Thought Process & Associations: Linear Thought Content: Appropriate Hallucination Type: Auditory (denies today) Delusion Type: None Suicidal Ideation: Yes (denies today) Suicidal Plan: No Suicidal Intention: No Homicidal Ideation: No Homicidal Plan: No Homicidal Intention: No Insight: Poor (improving) Judgment: Poor Results Labs Labs reviewed. Test 06/13/17 12:25 06/13/17 12:27 Erythrocyte Sedimentation Rate 22 mm/hr Blood Urea Nitrogen 7 MG/DL Creatinine 0.52 MG/DL Random Glucose 92 MG/DL Total Protein 7.0 GM/DL Albumin 3.2 GM/DL Calcium Level 8.5 MG/DL Magnesium Level 1.8 MG/DL Alkaline Phosphatase 115 U/L Aspartate Amino Transf (AST/SGOT) 4 U/L Alanine Aminotransferase (ALT/SGPT) 17 U/L Total Bilirubin 0.3 MG/DL Sodium Level 131 MEQ/L Potassium Level 3.3 MEQ/L Chloride Level 98 MEQ/L Carbon Dioxide Level 22.8 MEQ/L Anion Gap 10 MEQ/L Estimat Glomerular Filtration Rate 129 ML/MIN Vitamin B12 Level 1446 PG/ML Human Chorionic Gonadotropin, Quant 2 MIU/ML Phenobarbital Level 7.3 MCG/ML Vitals/IOs Vital Signs Date Time Temp Pulse Resp B/P (MAP) Pulse Ox O2 Delivery O2 Flow Rate FiO2 06/13/17 06:22 98.4 78 18 173/80 (111) 98 Intake and Output 06/13/17 06/13/17 06/14/17 08:00 16:00 00:00 Intake Total 120 ml Balance 120 ml Assessment & Plan Problem List: (1) Adjustment disorder with depressed mood ICD Codes: F43.21 - Adjustment disorder with depressed mood Assessment & Plan Patient seen follow-up, chart reviewed. Patient noted to have improvement of mood today, still noted to have dysthymic affect, no longer endorses suicidal ideations. We'll continue to cross titrate fluoxetine with duloxetine for depression. Patient to continue recommendations as per primary medical team. Discharge planning in progress Justification for Cont. Inpt. At risk for further decompensation if at lower level of care Discharge Planning Patient's her back to boyfriend's residence once psychiatrically stable. Elio Kerr MD Jun 13, 2017 15:52
--- NOTE | 2017-06-13 16:39 | PD.PSY.CON ---
Provisional Diagnosis Admission Date Jun 10, 2017 at 13:51 [place] I. 1. Adjustment disorder with depressed mood [place] II. Deferred History of Present Illness Service Psychiatry Consult Requested By Dr. Kerr Reason for Consult Second opinion for involuntary psychiatric hospitalization Primary Care Physician Unknown HPI From Dr. Kerr's H&P: Patient is a 41-year-old woman, , living with boyfriend, unemployed, with a past psychiatric history of self reported PTSD, depression and anxiety along with borderline personality disorder, with 1 previous psychiatric hospitalization, denies previous suicide attempts or self-injurious behavior, has outpatient follow-up at [facility] and recent regimen includes gabapentin 800 mg by mouth 3 times a day, Remeron 15 mg daily at bedtime and Prozac 40 mg by mouth daily, past medical history of migraine headaches, hypertension, A. fib, seizures who was admitted to the medical floor recently after reported overdose and had arrived with a GCS of 3 and subsequently intubated in the ER due to respiratory depression which after stabilization psychiatry was consulted for evaluation and transferred to the inpatient medical/psychiatry unit for further evaluation and management. Patient was found lying in hospital bed, cooperative interview today with card writer hand , therapist and nurse. Patient states that she "took a mixture of pills" was unable to recall events surrounding incident which occurred 3 days ago and states waking up in the hospital. Patient states that she was aware she was brought in by EMS activated by her boyfriend after he had found her at the end of the stairwell states the last and she recalls was watching television and talking to someone on the phone. Patient reports having had decreased sleep recently along with energy being "up and down", no change in appetite, decrease in concentration, feeling sad and depressed recently along with feelings of guilt about not having been a better mother to her children. Patient states that she denies having had any suicide ideations and states that she does not believe in suicide as she believes she is "going to hell if I killed myself". Patient reports that her recent stressors recently have been the passing of her mother recently in September was also considered to be her best friend, financial difficulties away as well as feeling being far from her children. Patient states that currently she feels "not very good" denies any perceptual disturbances aside from the voice of her mother and grandmother that occurs after the passing of her mother. Patient denies any paranoid delusions at this time. When asked about what she was feeling or thinking about this recalling what happened she states "for that is that I felt tired of everything". But did not continue to elaborate. Collateral pending from patient's boyfriend, reports that "she likes going to hospitals", and that the patient complains about "anything just to get a prescription". He mentions that What She Says Is Manipulation. He Reports That She Has Been Abusing Her Medications for Years and That Her Medications of Choice Include Gabapentin, Clonazepam, and Phenobarbital. He mentions that the patient had reported previous suicide attempt via overdose in the past to him. He reports that patient has no past cheeks her medications while in the hospital and kept them always take them later all at once so that she can get high. He reports believing that this recent incident was a true suicide attempt as he states there found to be empty bottles of medications under the bed covers. On my examination today: Patient seen and examined with nurse. Chart reviewed. Case discussed with nursing staff. On my examination today, the patient reports that she presented following an overdose on a mixture of medication. She denies that this was suicidal in nature and says that she simply "took a wrong mix of pills." She denies any suicidal or homicidal ideation now. She denies any audiovisual hallucinations. She does admit to depression following her mother's passing in September of this year but denies any feelings of hopelessness or worthlessness anymore. No hypomanic or manic symptoms. The remainder of the psychiatric ROS is negative. No physical complaints. Past psychiatric history: The patient reports a history of PTSD from childhood trauma and borderline personality disorder. She follows psychiatrically or [facility]. She reports that she was psychiatrically admitted a few months ago related to distress at her mother's passing. She denies a history of previous suicide attempts. Family history: Patient reports a family history of alcoholism. Chemical dependency history: The patient reports a history of abuse of opiate pain medications. Social history: The patient reports that she lives with her boyfriend of 1 year. She has 2 daughters and 2 grandchildren and reports that she maintains good contact with them. She is high school educated. She has a pending disability claim. She denies any legal issues. 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 Review of Systems Except as stated in HPI: all other systems reviewed are Neg Past Family Social History Coded Allergies: Sulfa (Sulfonamide Antibiotics) (Verified Allergy, Severe, 06/10/17) azithromycin (Verified Allergy, Severe, 06/10/17) ondansetron (Verified Allergy, Severe, Swelling, 06/09/17) cyclobenzaprine (Verified Allergy, Intermediate, 06/09/17) propoxyphene (Verified Allergy, Intermediate, 06/09/17) Past Medical History See electronic medical record Active Scripts Ferrous Sulfate (Ferosul) 325 Mg (65 Mg Iron) Tablet, 325 MG PO BID@ for iron deficiency anemia, #60 MG Prov:Nalini Yeung MD 06/10/17 Reported Medications Atenolol (Atenolol) 50 Mg Tab, 50 MG PO BID for Blood Pressure Management, #60 TAB 0 Refills 06/09/17 Clonidine (Clonidine) 0.2 Mg Tab, 0.2 MG PO TID for Blood Pressure Management, # 60 TAB 0 Refills 06/09/17 Loperamide (Loperamide) 2 Mg Cap, 2 MG PO DIRECTED Y for DIARRHEA, CAP 0 Refills One capsule after each loose stool. Not to exceed 8 capsules per day. 06/08/17 Pantoprazole (Pantoprazole) 40 Mg Tab, 40 MG PO BID for Reflux, #30 TAB 0 Refills 06/08/17 Gabapentin (Gabapentin) 600 Mg Tab, 600 MG PO QID, #60 TAB 0 Refills 06/08/17 Fluoxetine (Fluoxetine) 40 Mg Cap, 40 CAP PO DAILY, #30 CAP 0 Refills 06/08/17 Mirtazapine (Mirtazapine) 15 Mg Tab, 15 MG PO HS for Depression Control, #30 TAB 0 Refills 06/08/17 Discontinued Reported Medications Hydroxyzine Pamoate (Hydroxyzine Pamoate) 50 Mg Cap, 50 MG PO BID, CAP 0 Refills 06/08/17 Benztropine (Benztropine) 0.5 Mg Tab, 1 MG PO BID, #60 TAB 0 Refills 06/08/17 Current Medications Medications (Trade) Dose Ordered Sig/Gia Route Start Time Stop Time Status Last Admin (Tenormin) 50 mg BID PO 06/10/17 17:00 06/13/17 08:31 (Catapres) 0.2 mg TID PO 06/10/17 18:00 06/13/17 12:57 (Ferrous Sulfate) 325 mg BID@12,17 PO 06/10/17 17:00 06/13/17 12:57 (Neurontin) 600 mg QID PO 06/10/17 18:00 Future Hold (Imodium) 2 mg Q8H PRN PO 06/10/17 16:00 (Remeron) 15 mg HS PO 06/10/17 21:00 06/12/17 20:56 (Protonix) 40 mg BID PO 06/10/17 21:00 06/13/17 08:31 (Ativan Inj) 1 mg Q6H PRN IM 06/10/17 15:00 06/13/17 14:39 (Tylenol) 650 mg Q4H PRN PO 06/10/17 16:00 06/13/17 13:36 (Milk Of Magnesia Liq) 30 ml DAILY PRN PO 06/10/17 16:00 (Mag-Al Plus Susp Liq) 30 ml Q6H PRN PO 06/10/17 14:45 (Vasotec Inj) 2.5 mg Q6H PRN IV PUSH 06/10/17 17:15 06/10/17 23:45 (Apresoline) 10 mg Q6HR PRN PO 06/10/17 17:15 06/12/17 06:00 (Phenergan) 25 mg Q8H PRN PO 06/10/17 19:15 06/13/17 09:22 (Norvasc) 10 mg DAILY PO 06/11/17 09:00 06/13/17 08:31 (Phenergan Inj) 25 mg Q6H PRN IM 06/11/17 08:45 Potassium Chloride/Sodium Chloride 1,000 ml @ 50 mls/hr Q20H IV 06/11/17 14:30 06/11/17 20:40 (Cymbalta Dr) 20 mg BID PO 06/11/17 21:00 06/13/17 08:31 (Tessalon) 100 mg TID PRN PO 06/12/17 15:45 06/13/17 13:35 ([employer] [place]) 1 lozenge UNSCH PRN BUCCAL 06/12/17 17:00 06/12/17 20:56 (Topamax) 50 mg Q12HR PO 06/13/17 09:00 06/13/17 13:36 Magnesium Sulfate/ Dextrose 100 ml @ 100 mls/hr Q1H IV 06/13/17 14:30 06/13/17 16:29 06/13/17 16:08 Potassium Chloride 100 ml @ 50 mls/hr Q2H IV 06/13/17 14:30 06/13/17 16:29 06/13/17 16:09 (Apresoline) 25 mg Q8HR PO 06/13/17 22:00 Family Psych History See above Social History See above Patient's Strengths (min. 2) In a monitored setting. Verbally fluent. Physical Exam Physical exam completed by hospitalist analysis consultant. On my examination today, the patient appears to be in no acute physical distress. No motor abnormalities noted. Labs and vitals reviewed: Vital Signs Vital Signs Date Time Temp Pulse Resp B/P (MAP) Pulse Ox O2 Delivery O2 Flow Rate FiO2 06/13/17 06:22 98.4 78 18 173/80 (111) 98 I/O 06/13/17 06/13/17 06/14/17 08:00 16:00 00:00 Intake Total 120 ml Balance 120 ml Lab Results Test 06/13/17 12:25 06/13/17 12:27 Erythrocyte Sedimentation Rate 22 mm/hr Blood Urea Nitrogen 7 MG/DL Creatinine 0.52 MG/DL Random Glucose 92 MG/DL Total Protein 7.0 GM/DL Albumin 3.2 GM/DL Calcium Level 8.5 MG/DL Magnesium Level 1.8 MG/DL Alkaline Phosphatase 115 U/L Aspartate Amino Transf (AST/SGOT) 4 U/L Alanine Aminotransferase (ALT/SGPT) 17 U/L Total Bilirubin 0.3 MG/DL Sodium Level 131 MEQ/L Potassium Level 3.3 MEQ/L Chloride Level 98 MEQ/L Carbon Dioxide Level 22.8 MEQ/L Anion Gap 10 MEQ/L Estimat Glomerular Filtration Rate 129 ML/MIN Vitamin B12 Level 1446 PG/ML Human Chorionic Gonadotropin, Quant 2 MIU/ML Phenobarbital Level 7.3 MCG/ML Mental Status Examination Appearance: Appropriate Consciousness: Alert Orientation: Person, Place (at least) Motor Activity: Other (no motor abnormalities noted) Speech: Unremarkable Language: Adequate Fund of Knowledge: Adequate Attention and Concentration: Adequate Mood: Other (improving but still somewhat depressed) Affect: Appropriate (fairly full and reactive) Thought Process & Associations: Linear Thought Content: Appropriate Hallucination Type: None Delusion Type: None Suicidal Ideation: No Suicidal Plan: No Suicidal Intention: No Homicidal Ideation: No Homicidal Plan: No Homicidal Intention: No Insight: Poor Judgment: Poor Assessment & Plan Problem List: (1) Adjustment disorder with depressed mood ICD Codes: F43.21 - Adjustment disorder with depressed mood Assessment & Plan Given the circumstances of the patient's presentation here, her presentation on my examination today, and looking at the totality of the case, I concur with Dr. Kerr that the patient meets criteria for involuntary psychiatric hospitalization under the [place] act. Concern for possible risk of harm to self in light of presenting overdose, which may have been suicidal in nature. I have completed the second opinion paperwork. Further care as per Dr. Kerr. Thank you very much for this consultation. Signing off. Discharge Planning Per Giancarlo Go MD Jun 13, 2017 16:39
--- NOTE | 2017-06-13 16:40 | MG ---
cc: COSME DUPOTN Lab No: [id number] Date: 06/13/17 Age: 41 Sex: F Race: TECHNIQUE This is a 17 channel EEG. DESCRIPTION The background rhythm reveals symmetrical alpha rhythm. Frequency 8 Hz, amplitude 30 microvolts. There is the expected anterior decrement to the response. There are no lateralizing features seen. There are no epileptiform discharges. During drowsiness there is some slowing in the theta range. Hyperventilation was done with no change in the background rhythm. Photic stimulation results in a normal driving response. INTERPRETATION Normal EEG. Cosme Dupont MD LURDES/ANTONIO /3:03 PM /4:42 PM
--- NOTE | 2017-06-13 17:29 | RADRPT ---
EXAM DATE/TIME: 06/13/2017 14:59 [place] COMPARISON: No previous studies available for comparison. INDICATIONS : CVA. Headache and seizure activity. CONTRAST: 17 cc Omniscan (gadodiamide) IV MEDICAL HISTORY : Hypertension. Seizures. PTSD. SURGICAL HISTORY : Hysterectomy. Appendectomy. Fusion, cervical. ENCOUNTER: Initial ACUITY: 1 day PAIN SCORE: 6/10 LOCATION: Head. TECHNIQUE: Multiplanar, multisequence MRI of the brain was performed both prior to and following the administrat ion of paramagnetic contrast. FINDINGS: CEREBRUM: The ventricles are normal for age. No evidence of midline shift, mass lesion, hemorrhage or acute in farction. No extraaxial fluid collections are seen. The pituitary gland and suprasellar cistern are normal in configuration. WHITE MATTER: No significant signal abnormalities are seen in the white matter. POSTERIOR FOSSA: The cerebellum and brainstem are intact. The 4th ventricle is midline. The cerebellopontine angle is unremarkable. The cerebellar tonsils are normal in position. DIFFUSION IMAGING: No focal areas of restricted diffusion are seen. No evidence of acute infarction. EXTRACRANIAL: The visualized portions of the orbits and paranasal sinuses are unremarkable. POST-CONTRAST: No abnormal areas of parenchymal or dural enhancement. No evidence of blood-brain barrier breakdown. CONCLUSION: No acute disease, mass or edema. Symmetric hippocampal complexes. Husam Moctezuma MD on June 13, 2017 at 17:24 Board Certified Radiologist. This report was verified electronically.
[2017-06-13 18:00] VITALS: BP 132/75; PULSE 77; RESP 18; TEMP 97.8; O2SAT 100
[2017-06-13] MEDS: MIRTAZAPINE 15 MG TAB PO SCH (20:40)
[2017-06-13] MEDS: hydrALAZINE HCL 25 MG TAB PO SCH (20:41)
[2017-06-13] MEDS ORDERED: MAGNESIUM SULFATE 1 GM PREMIX 100 ML IV SCH (21:00)
[2017-06-14] MEDS: NS + KCL 20 MEQ INJ 1,000 ML IV SCH (02:30)
[2017-06-14] MEDS: ACETAMINOPHEN 325 MG TAB PO PRN ×3 (03:31→13:37)
[2017-06-14] MEDS: hydrALAZINE HCL 25 MG TAB PO SCH (06:06)
[2017-06-14 06:13] VITALS: BP 119/74; PULSE 85; RESP 18; TEMP 98.2; O2SAT 93
[2017-06-14] MEDS: PANTOPRAZOLE SOD 40 MG DELAYED RELEASE TAB PO SCH (08:25)
[2017-06-14] MEDS: TOPIRAMATE 25 MG TAB PO SCH (08:25)
[2017-06-14] MEDS: DULoxetine HCl DR 20 MG CAP PO SCH (08:25)
[2017-06-14] MEDS: cloNIDine HCL 0.2 MG TAB PO SCH ×2 (08:25→12:15)
[2017-06-14] MEDS: ATENOLOL 50 MG TAB PO SCH (08:25)
[2017-06-14] MEDS: PROMETHAZINE HCL 25 MG TAB PO PRN (08:25)
--- NOTE | 2017-06-14 09:03 | HHI.PR ---
Subjective Remarks In bed, appears in nad. Pleasant. Denies chest pain or sob. No n/v/d/c. Denies fever or chills. Patient says she is eating better, appetite is improved. No nausea or vomiting, no diarrhea. Objective Vitals Vital Signs Date Time Temp Pulse Resp B/P (MAP) Pulse Ox O2 Delivery O2 Flow Rate FiO2 06/14/17 06:13 98.2 85 18 119/74 (89) 93 06/13/17 18:00 97.8 77 18 132/75 (94) 100 I/O 06/13/17 06/13/17 06/13/17 06/14/17 06/14/17 06/14/17 07:00 15:00 23:00 07:00 15:00 23:00 Intake Total 120 ml 960 ml 240 ml Balance 120 ml 960 ml 240 ml Intake Oral 120 ml 960 ml 240 ml # Voids 5 1 1 # Bowel Movements 0 Result Diagram: 06/13/17 1227 Imaging Last Impressions Brain MRI 06/13/17 0858 Signed Impressions: Service Date/Time: June 14:59 - CONCLUSION: No acute disease, mass or edema. Symmetric hippocampal complexes. Husam Moctezuma MD Abdomen X-Ray 06/11/17 0000 Signed Impressions: Service Date/Time: Sunday, June 11, 2017 14:13 - CONCLUSION: Nonspecific , benign abdomen appearance. Blair Beltran MD Abdomen Ultrasound 06/11/17 0000 Signed Impressions: Service Date/Time: Sunday, June 11, 2017 09:27 - CONCLUSION: No acute finding is identified. The pancreas is not adequately visualized secondary to bowel gas. Blair Orta MD Objective Remarks GENERAL: 41 yo male, appears in nad. CARDIOVASCULAR: Regular rate and rhythm. RESPIRATORY: No accessory muscle use. Clear to auscultation. Breath sounds equal bilaterally. GASTROINTESTINAL: Abdomen soft, non-tender, nondistended. Hepatic and splenic margins not palpable. MUSCULOSKELETAL: Extremities without clubbing, cyanosis, or edema. No obvious deformities. NEUROLOGICAL: Awake and alert. No obvious cranial nerve deficits. Motor grossly within normal limits. Five out of 5 muscle strength in the arms and legs. Normal speech. PSYCHIATRIC: Appropriate mood and affect; insight and judgment normal. A/P Assessment and Plan Borderline personality disorder, depression, PTSD, atarax overdose: Management per psychiatry HTN: uncontrolled. Pt currently on clonidine 0.2mg po TID and atenolol 50mg po BID. now on amlodipine 10mg po daily. Increase hydralazine. PRN vasotec and hydralazine available. monitor. on a heart healthy diet Hypokalemia: slowly correcting. Continue to monitor. Continue IV potassium, will give another bolus and oral replacement, check magnesium. Monitor and replace as need. Patient is also eating better and n/v/d resolved. Hypomagnesemia- s/p magnesium sulfate 2 g . Monitor and replace as indicated. N/V: she has po phenergan however if unable to take po may take IV. Abdominal pain: no complaints today. unsure what the etiology is. LFTs wnl, lipase wnl, abdominal u/s/KUB w no acute process, abdominal pain resolved GERD: on protonix BID Chronic diarrhea: on loperamide. Diarrhea resolved. now. Migraine MENDOZA: will hold off on fioricet per psych recs. Continue tylenol. Neurology following, started on Topamax. Supraventricular tachycardia/heart murmur: on atenolol Possible seizure disorder: pt now telling me that she has a hx of sz d/o on phenobarbital 60.8mg po TID when she didn't mention this to me before. Pt is not a very reliable historian, follow-up EEG, neurology started Topamax. Follow -up MRI. Discussed with the patient, nurse, Dr Kerr psychiatry Nalini Yeung MD Jun 14, 2017 09:03
[2017-06-14] MEDS ORDERED: MIRTA15 PO (09:58)
[2017-06-14] MEDS ORDERED: FERR325T20 PO (09:58)
[2017-06-14] MEDS ORDERED: PANT40TA3 PO (09:58)
[2017-06-14] MEDS ORDERED: ATEN50TA PO (09:58)
[2017-06-14] MEDS ORDERED: HYDR-3799 PO (09:58)
[2017-06-14] MEDS ORDERED: CLON.2 PO (09:58)
[2017-06-14] MEDS ORDERED: TOPI50TA7 PO (09:58)
[2017-06-14] MEDS ORDERED: DULO20 PO (09:58)
[2017-06-14] MEDS ORDERED: AMLO10 PO (09:58)
[2017-06-14] MEDS: FERROUS SULFATE 325 MG (65 MG ELEMENTAL IRON) TAB PO SCH (12:00)
--- NOTE | 2017-06-14 15:11 | HHI.DS ---
Psychiatry Discharge Summary Inpatient Psychiatric care?: Yes Advance Directive: No Reason Not Provided: education provided Mental Health AdvanceDirective: No Health Care Proxy: No Admission Admission Date Jun 10, 2017 at 13:51 Admission Diagnosis: (1) Adjustment disorder with depressed mood ICD Code: F43.21 - Adjustment disorder with depressed mood Brief History From Dr. Kerr's H&P: Patient is a 41-year-old woman, , living with boyfriend, unemployed, with a past psychiatric history of self reported PTSD, depression and anxiety along with borderline personality disorder, with 1 previous psychiatric hospitalization, denies previous suicide attempts or self-injurious behavior, has outpatient follow-up at [facility] and recent regimen includes gabapentin 800 mg by mouth 3 times a day, Remeron 15 mg daily at bedtime and Prozac 40 mg by mouth daily, past medical history of migraine headaches, hypertension, A. fib, seizures who was admitted to the medical floor recently after reported overdose and had arrived with a GCS of 3 and subsequently intubated in the ER due to respiratory depression which after stabilization psychiatry was consulted for evaluation and transferred to the inpatient medical/psychiatry unit for further evaluation and management. Patient was found lying in hospital bed, cooperative interview today with grant writer , therapist and nurse. Patient states that she "took a mixture of pills" was unable to recall events surrounding incident which occurred 3 days ago and states waking up in the hospital. Patient states that she was aware she was brought in by EMS activated by her boyfriend after he had found her at the end of the stairwell states the last and she recalls was watching television and talking to someone on the phone. Patient reports having had decreased sleep recently along with energy being "up and down", no change in appetite, decrease in concentration, feeling sad and depressed recently along with feelings of guilt about not having been a better mother to her children. Patient states that she denies having had any suicide ideations and states that she does not believe in suicide as she believes she is "going to hell if I killed myself". Patient reports that her recent stressors recently have been the passing of her mother recently in September was also considered to be her best friend, financial difficulties away as well as feeling being far from her children. Patient states that currently she feels "not very good" denies any perceptual disturbances aside from the voice of her mother and grandmother that occurs after the passing of her mother. Patient denies any paranoid delusions at this time. When asked about what she was feeling or thinking about this recalling what happened she states "for that is that I felt tired of everything". But did not continue to elaborate. Collateral pending from patient's boyfriend, reports that "she likes going to hospitals", and that the patient complains about "anything just to get a prescription". He mentions that What She Says Is Manipulation. He Reports That She Has Been Abusing Her Medications for Years and That Her Medications of Choice Include Gabapentin, Clonazepam, and Phenobarbital. He mentions that the patient had reported previous suicide attempt via overdose in the past to him. He reports that patient has no past cheeks her medications while in the hospital and kept them always take them later all at once so that she can get high. He reports believing that this recent incident was a true suicide attempt as he states there found to be empty bottles of medications under the bed covers. On my examination today: Patient seen and examined with nurse. Chart reviewed. Case discussed with nursing staff. On my examination today, the patient reports that she presented following an overdose on a mixture of medication. She denies that this was suicidal in nature and says that she simply "took a wrong mix of pills." She denies any suicidal or homicidal ideation now. She denies any audiovisual hallucinations. She does admit to depression following her mother's passing in September of this year but denies any feelings of hopelessness or worthlessness anymore. No hypomanic or manic symptoms. The remainder of the psychiatric ROS is negative. No physical complaints. Past psychiatric history: The patient reports a history of PTSD from childhood trauma and borderline personality disorder. She follows psychiatrically or [facility]. She reports that she was psychiatrically admitted a few months ago related to distress at her mother's passing. She denies a history of previous suicide attempts. Family history: Patient reports a family history of alcoholism. Chemical dependency history: The patient reports a history of abuse of opiate pain medications. Social history: The patient reports that she lives with her boyfriend of 1 year. She has 2 daughters and 2 grandchildren and reports that she maintains good contact with them. She is high school educated. She has a pending disability claim. She denies any legal issues. She is a rastafarian Orthodox. Tobacco Use In Past 30 Days: 5 or More Cigarettes/Day Alcohol Use: Never Hospital Course Patient is a 41-year-old woman, , living with boyfriend, unemployed, with a past psychiatric history of self reported PTSD, depression and anxiety along with borderline personality disorder, with 1 previous psychiatric hospitalization, denies previous suicide attempts or self-injurious behavior, has outpatient follow-up at [facility] and recent regimen includes gabapentin 800 mg by mouth 3 times a day, Remeron 15 mg daily at bedtime and Prozac 40 mg by mouth daily, past medical history of migraine headaches, hypertension, A. fib, seizures who was admitted to the medical floor recently after reported overdose and had arrived with a GCS of 3 and subsequently intubated in the ER due to respiratory depression which after stabilization psychiatry was consulted for evaluation and transferred to the inpatient medical/psychiatry unit for further evaluation and management. Patent was cross tapered from fluoxetine to duloxetine 20mg PO BID, continued on mirtazapine 15mg PO HS. Patient tolerated medications well and observed mood and behavior during admission and was noted to have more stable mood, improvement of depression, no longer endorsing suicidal ideations and denied any visual hallucinations or delusions. Patient denied having suicidal or homicidal ideations, nor perceptual disturbances or delusions; calm and cooperative with staff. Upon discharge, patient denied any SI, HI, AVH or delusions, noted to be motivated with abstaining from abusing her medications and agreed to engage in rehabiliation program for substance use as well as to comply with treatment and outpatient follow up for continuity of care. He was discharged back to her [facility] residence who agreed to provide support and ensure patient continues plan. Supportive psychotherapy provided. Patient advised to call 911 or go to nearest ED in case of emergency. Patient agree with plan. Results Blood Pressure 119 / 74 Vital Signs Date Time Temp Pulse Resp B/P (MAP) Pulse Ox O2 Delivery O2 Flow Rate FiO2 06/14/17 06:13 98.2 85 18 119/74 (89) 93 Laboratory Tests Test 06/11/17 20:00 06/12/17 09:30 06/13/17 12:25 06/13/17 12:27 Blood Urea Nitrogen 6 MG/DL (7-18) Sodium Level 126 MEQ/L (136-145) 131 MEQ/L (136-145) Potassium Level 2.9 MEQ/L (3.5-5.1) 3.3 MEQ/L (3.5-5.1) Chloride Level 91 MEQ/L (98-107) Serum Osmolality 259 MOSM/KG (275-295) Erythrocyte Sedimentation Rate 22 mm/hr (0-20) Albumin 3.2 GM/DL (3.4-5.0) Aspartate Amino Transf (AST/SGOT) 4 U/L (15-37) Vitamin B12 Level 1446 PG/ML (193-986) Phenobarbital Level 7.3 MCG/ML (15.0-40.0) Summary of Procedures None Imaging Last Impressions Brain MRI 06/13/17 0858 Signed Impressions: Service Date/Time: June 14:59 - CONCLUSION: No acute disease, mass or edema. Symmetric hippocampal complexes. Husam Moctezuma MD Abdomen X-Ray 06/11/17 0000 Signed Impressions: Service Date/Time: Sunday, June 11, 2017 14:13 - CONCLUSION: Nonspecific , benign abdomen appearance. Blair Beltran MD Abdomen Ultrasound 06/11/17 0000 Signed Impressions: Service Date/Time: Sunday, June 11, 2017 09:27 - CONCLUSION: No acute finding is identified. The pancreas is not adequately visualized secondary to bowel gas. Blair Orta MD Pending results at discharge: No Medications # of Antipsychotic meds at D/C: 0 Approp Antipsych med options 1 - Minimum of three failed multiple trials of monotherapy. 2 - Documented plan to taper to monotherapy due to previous use of multiple meds OR cross-taper in progress at D/C. 3 - Documentation of augmentation of Clozapine. 4 - Justification other than those listed in allowable values 1-3, document here : Discharge Discharge Date: Jun 14, 2017 Discharge Diagnosis: (1) Adjustment disorder with depressed mood ICD Code: F43.21 - Adjustment disorder with depressed mood Pt Condition on Discharge: Stable Discharge Disposition: Discharge Home Discharge Instructions Diet Instructions: Heart Healthy Diet Activities you can perform: Regular-No Restrictions Discharge Time > 30 minutes Mental Status Examination Appearance: Appropriate Consciousness: Alert Orientation: Person, Place (at least), Date/Time Motor Activity: Normal gait Speech: Unremarkable Language: Adequate Fund of Knowledge: Adequate Attention and Concentration: Adequate Memory: Unremarkable Mood: Appropriate Affect: Appropriate (fairly full and reactive) Thought Process & Associations: Intact, Goal directed, Linear Thought Content: Appropriate Hallucination Type: None Delusion Type: None Suicidal Ideation: No Suicidal Plan: No Suicidal Intention: No Homicidal Ideation: No Homicidal Plan: No Homicidal Intention: No Insight: Fair Judgment: Impulsive Discharge/Advance Care Plan Health Problems: (1) Adjustment disorder with depressed mood Goals to promote your health * To prevent worsening of your condition and complications * To maintain your health at the optimal level Directions to meet your goals Take your medications as prescribed Follow your dietary instruction Follow activity as directed Keep your appointments as scheduled Take your immunizations and boosters as scheduled If your symptoms worsen call your PCP, if no PCP go to Urgent Care Center or Emergency Room For 25/02 questions related to your inpatient stay or results of tests pending at discharge, please contact Dr. Elio Kerr at Smoking is Dangerous to Your Health. Avoid second hand smoking Elio Kerr MD Jun 14, 2017 15:11
== END 2017-06-14 14:15 | disposition home or self-care (01) | DRG 881 ==
LOC: H4EA 13:51
PROVIDERS: ADMIT Student in an Organized Health Care Education/Training Program; ATTEND Student in an Organized Health Care Education/Training Program
DX: F43.21 Adjustment disorder with depressed mood (principal); I47.1 Supraventricular tachycardia; I48.91 Unspecified atrial fibrillation; I10 Essential (primary) hypertension; G40.409 Other generalized epilepsy and epileptic syndromes, not intractable, without status epilepticus; E83.42 Hypomagnesemia; G43.909 Migraine, unspecified, not intractable, without status migrainosus; F41.8 Other specified anxiety disorders; F60.3 Borderline personality disorder; F43.10 Post-traumatic stress disorder, unspecified; M79.7 Fibromyalgia; E87.6 Hypokalemia; R01.1 Cardiac murmur, unspecified; K21.9 Gastro-esophageal reflux disease without esophagitis; R19.7 Diarrhea, unspecified; F17.200 Nicotine dependence, unspecified, uncomplicated; Z79.899 Other long term (current) drug therapy; Z81.1 Family history of alcohol abuse and dependence; Z87.11 Personal history of peptic ulcer disease; Z91.19 Patient's noncompliance with other medical treatment and regimen; Z91.410 Personal history of adult physical and sexual abuse; Z91.5 Personal history of self-harm
CPT/HCPCS: 70553; 74000; 76700; 76937; 80048; 80053; 80171; 80184; 82570; 82607; 83690; 83735; 83930; 83935; 84300; 84425; 84702; 85652; 86592; 95819; A9579; J2060; J3475; J3480; Q0169

== ENCOUNTER 2017-08-16 14:48 | Inpatient (IN) | payer SELFPAY ==
[~2017-08-16] VITALS: Ht 162.6 cm; Wt 88.6 kg
[~2017-08-16 14:48] MED LIST changes: +AMLO10 PO; -BENZ0.5T PO; +CLON.2 PO; -CLON0.2T PO; +DULO20 PO; +HYDR-3799 PO; -HYDR50CA PO; +TOPI50TA7 PO
[2017-08-16 14:51] VITALS: BP 146/90; PULSE 69; RESP 14; TEMP 98.6; O2SAT 96
[2017-08-16] MEDS ORDERED: SODIUM CHLOR 0.9% 1000 ML INJ 1,000 ML IV SCH (16:27)
--- NOTE | 2017-08-16 16:27 | PD ---
HPI Chief Complaint: Dizziness Time Seen by Provider: 16:19 Travel History International Travel<30 days: No Contact w/Intl Traveler<30days: No Traveled to known affect area: No History of Present Illness HPI 41-year-old female presents the emergency department with history of syncope last evening, and complaints of increased dyspnea with exertion over the past 2 weeks. Patient states chronic heartburn and epigastric discomfort for which she takes omeprazole 40 mg daily. Patient states recent fever 102.5 yesterday. Patient reports nausea vomiting the past 24 hours. Patient states dark stool over the past several weeks. Patient states she saw her primary care last week and felt she should be seen here at that time, and then one again today, and he sent her here. Patient reports her hemoglobin is 6.1 at her doctor's office. Patient has had a total hysterectomy. She denies blood in her stool but has had dark stools as stated previously. Patient states she has had a headache of approximately 8 out of 10 since yesterday. Patient does have history of seizure disorder treated with phenobarbital. She feels her syncopal episode last evening was different than her typical seizures. Progressively worsening dyspnea with exertion over the past several weeks. She is allergic to sulfa, azithromycin, cyclobenzaprine, Zofran, and propoxyphene. PFSH Past Medical History Arthritis: Yes (knees and neck) Autoimmune Disease: No Anxiety: Yes Depression: Yes Cancer: No Cardiovascular Problems: No COPD: Yes (beginning stages) Diabetes: No Endocrine: No Gastrointestinal Disorders: Yes Genitourinary: No Hypertension: Yes Immune Disorder: No Musculoskeletal: Yes Neurologic: Yes Psychiatric: Yes Reproductive: No Respiratory: Yes Migraines: Yes Seizures: Yes Thyroid Disease: No Ulcer: Yes ?: Not Past Surgical History Abdominal Surgery: No Cardiac Surgery: No Ear Surgery: No Endocrine Surgery: No Eye Surgery: No Genitourinary Surgery: No Gynecologic Surgery: Yes ( x2) Hysterectomy: Yes Neurologic Surgery: Yes (Cervical Fusion) Oral Surgery: No Pacemaker: No Thoracic Surgery: No Other Surgery: Yes Social History Alcohol Use: No Tobacco Use: Yes Substance Use: No Allergies-Medications (Allergen,Severity, Reaction): Coded Allergies: Sulfa (Sulfonamide Antibiotics) (Verified Allergy, Severe, 08/16/17) azithromycin (Verified Allergy, Severe, 08/16/17) ondansetron (Verified Allergy, Severe, Swelling, 08/16/17) cyclobenzaprine (Verified Allergy, Intermediate, 08/16/17) propoxyphene (Verified Allergy, Intermediate, 08/16/17) Reported Meds & Prescriptions Reported Meds & Active Scripts Active Atenolol 50 Mg Tab 50 Mg PO BID 30 Days Catapres (Clonidine) 0.2 Mg Tab 0.2 Mg PO TID 30 Days Reported Ambien (Zolpidem Tartrate) 10 Mg Tab 10 Mg PO HS PRN Klonopin (Clonazepam) 1 Mg Tab 1 Mg PO TID Fioricet (Sldxxahbhi-Hbnfydpcsczrg-Hxkrybaf) 50-300-40 Mg Cap 2 Cap PO Q4H PRN Phenobarbital 64.8 Mg Tab 64.8 Mg PO TID Gabapentin 800 Mg Tab 800 Mg PO TID Fluoxetine (Fluoxetine HCl) 40 Mg Cap 40 Cap PO DAILY Review of Systems Except as stated in HPI: all other systems reviewed are Neg General / Constitutional: Positive: Fever, Chills Eyes: No: Visual changes HENT: Positive: Headaches (see history of present illness), Lightheadedness, No : Vertigo, Sore Throat, Rhinitis, Rhinorrhea, Congestion, Nosebleed, Neck Stiffness, Neck Pain, Dental Difficulties, Earache Cardiovascular: Positive: Dyspnea on exertion, No: Chest Pain or Discomfort, Palpitations, Irregular Rhythm, Tachycardia Respiratory: No: Cough, Shortness of Breath, Wheezing Gastrointestinal: Positive: Nausea, Vomiting, Abdominal Pain, Dysphagia (see history of present illness), No: Diarrhea, Hematemesis, Hematochezia, Constipation Genitourinary: No: Urgency, Frequency, Dysuria Musculoskeletal: No: Pain Skin: No Rash Neurologic: Positive: Syncope (see history of present illness), No: Weakness Psychiatric: No: Depression Endocrine: No: Polydipsia Hematologic/Lymphatic: No: Easy Bruising Physical Exam Narrative GENERAL: Patient appears in no obvious distress. SKIN: Warm and dry. Poor pallor. Normal turgor. HEAD: Atraumatic. Normocephalic. EYES: Pupils equal and round. No scleral icterus. No injection or drainage. ENT: No nasal bleeding or discharge. Mucous membranes pink and moist. TMs are clear bilaterally. Pharynx is clear. Airway is patent. NECK: Trachea midline. Supple and nontender. CARDIOVASCULAR: Regular rate and rhythm. No murmurs gallops or rubs. RESPIRATORY: No accessory muscle use. Clear to auscultation. Breath sounds equal bilaterally. GASTROINTESTINAL: Abdomen soft, mild to moderate epigastric tenderness. No point tenderness or rebound, nondistended. Hepatic and splenic margins not palpable. MUSCULOSKELETAL: Extremities without clubbing, cyanosis, or edema. No obvious deformities. NEUROLOGICAL: Awake and alert. No obvious cranial nerve deficits. Motor grossly within normal limits. Five out of 5 muscle strength in the arms and legs. Normal speech. PSYCHIATRIC: Appropriate mood and affect; insight and judgment normal. Data Data Last Documented VS Vital Signs Date Time Temp Pulse Resp B/P (MAP) Pulse Ox O2 Delivery O2 Flow Rate FiO2 08/16/17 19:33 70 19 98 Room Air 08/16/17 18:13 (108) 08/16/17 14:51 98.6 Orders Orders Electrocardiogram (08/16/17 15:21) Complete Blood Count With Diff (08/16/17 15:21) Comprehensive Metabolic Panel (08/16/17 15:21) Magnesium (Mg) (08/16/17 15:21) Ckmb (Isoenzyme) Profile (08/16/17 15:21) Troponin I (08/16/17 15:21) Act Partial Throm Time (Ptt) (08/16/17 15:21) Prothrombin Time / Inr (Pt) (08/16/17 15:21) Urinalysis - C+S If Indicated (08/16/17 15:21) Type And Screen (08/16/17 15:21) Thyroid Stimulating Hormone (08/16/17 15:21) Iv Access Insert/Monitor (08/16/17 16:27) Ecg Monitoring (08/16/17 16:27) Oximetry (08/16/17 16:27) Pantoprazole Inj (Protonix Inj) (08/16/17 16:30) Sodium Chlor 0.9% 1000 Ml Inj (Ns 1000 M (08/16/17 16:27) Sodium Chloride 0.9% Flush (Ns Flush) (08/16/17 16:30) Al-Mag Hy-Si 40-40-4 Mg/Ml Liq (Mag-Al P (08/16/17 16:30) Lidocaine 2% Viscous (Xylocaine 2% Visco (08/16/17 16:30) Prochlorperazine Inj (Compazine Inj) (08/16/17 16:30) Morphine Inj (Morphine Inj) (08/16/17 16:30) Ct Brain W/O Iv Contrast(Rout) (08/16/17 16:27) Influenzae A/B Antigen (08/16/17 16:30) Morphine Inj (Morphine Inj) (08/16/17 18:30) Prochlorperazine Inj (Compazine Inj) (08/16/17 18:30) Morphine Inj (Morphine Inj) (08/16/17 19:30) CKMB (08/16/17 19:06) CKMB% (08/16/17 19:06) Admit Order (Ed Use Only) (08/16/17 21:38) Labs Laboratory Tests Test 08/16/17 17:00 08/16/17 19:06 08/16/17 20:47 Urine Color LIGHT-YELLOW Urine Turbidity CLEAR Urine pH 5.5 Urine Specific [place] 1.005 Urine Protein NEG mg/dL Urine Glucose (UA) NEG mg/dL Urine Ketones NEG mg/dL Urine Occult Blood NEG Urine Nitrite NEG Urine Bilirubin NEG Urine Urobilinogen LESS THAN 2.0 MG/DL Urine Leukocyte Esterase LARGE Urine RBC 4 /hpf Urine WBC 3 /hpf Urine Squamous Epithelial Cells 5 /hpf Urine Amorphous Sediment RARE Urine Bacteria FEW /hpf Microscopic Urinalysis Comment CULT NOT INDICATED Blood Urea Nitrogen 10 MG/DL Creatinine 0.86 MG/DL Random Glucose 81 MG/DL Total Protein 7.5 GM/DL Albumin 3.8 GM/DL Calcium Level 8.9 MG/DL Magnesium Level 2.0 MG/DL Alkaline Phosphatase 100 U/L Aspartate Amino Transf (AST/SGOT) 16 U/L Alanine Aminotransferase (ALT/SGPT) 15 U/L Total Bilirubin 0.2 MG/DL Sodium Level 138 MEQ/L Potassium Level 4.0 MEQ/L Chloride Level 109 MEQ/L Carbon Dioxide Level 18.8 MEQ/L Anion Gap 10 MEQ/L Estimat Glomerular Filtration Rate 72 ML/MIN Total Creatine Kinase 128 U/L Creatine Kinase MB 1.9 NG/ML Troponin I LESS THAN 0.02 NG/ML Thyroid Stimulating Hormone 3rd Gen 1.980 uIU/ML White Blood Count 4.6 TH/MM3 Red Blood Count 3.19 MIL/MM3 Hemoglobin 8.0 GM/DL Hematocrit 25.8 % Mean Corpuscular Volume 81.1 FL Mean Corpuscular Hemoglobin 25.1 PG Mean Corpuscular Hemoglobin Concent 31.0 % Red Cell Distribution Width 20.0 % Platelet Count 307 TH/MM3 Mean Platelet Volume 6.8 FL Neutrophils (%) (Auto) 54.3 % Lymphocytes (%) (Auto) 34.4 % Monocytes (%) (Auto) 5.8 % Eosinophils (%) (Auto) 4.4 % Basophils (%) (Auto) 1.1 % Neutrophils # (Auto) 2.5 TH/MM3 Lymphocytes # (Auto) 1.6 TH/MM3 Monocytes # (Auto) 0.3 TH/MM3 Eosinophils # (Auto) 0.2 TH/MM3 Basophils # (Auto) 0.1 TH/MM3 CBC Comment DIFF FINAL Differential Comment Prothrombin Time 10.7 SEC Prothromb Time International Ratio 1.1 RATIO Activated Partial Thromboplast Time 22.9 SEC MDM Medical Decision Making Medical Screen Exam Complete: Yes Emergency Medical Condition: Yes Medical Record Reviewed: Yes Differential Diagnosis Influenza. Nausea vomiting. Upper GI bleed. Anemia. Dyspnea with exertion. History of syncope. Narrative Course Labs ordered including CBC, CMP, cardiac panel, coagulation studies, and urinalysis. Type and screen is ordered. Rapid influenza is ordered. CT of the head is ordered. EKG and chest x-ray is ordered. IV access is obtained patient is given 1000 mL normal saline bolus. Patient is given 2 mg morphine IV as well as 5 mg Compazine IV. EKG shows normal sinus rhythm without ST. Acute changes. Rapid influenza is negative. Rectal exam shows nonspecific guaiac test due to lack of stool. Due to the patient's lack of venous access after multiple attempts, Dr. Polk placed a central line. Urinalysis is unremarkable. CBC shows white blood cell count of 4.6, hemoglobin is 8.0 which is typical for the patient looking back on her history. Coagulation studies are unremarkable. Chemistries are unremarkable. Troponin is less than 0.02. Patient is discussed with Dr. Mayer, and she is felt to warrant observation considering her report of syncopal episode, and worsening exertional dyspnea in the presence of anemia. Call was placed to the hospitalist to discuss admission. Patient was discussed with Dr. Pabon who accepted the patient for inpatient admission. Diagnosis Primary Impression: Symptomatic anemia Additional Impressions: Near syncope Headache Qualified Codes: R51 - Headache Nausea Admitting Information Admitting Physician Requests: Admit Condition: Stable Jb Flores Aug 16, 2017 16:27
[2017-08-16] MEDS ORDERED: SODIUM CHLORIDE 0.9% FLUSH 10 ML FLUSH IV FLUSH PRN ×2 (16:30→21:45)
[2017-08-16] MEDS ORDERED: PROCHLORPERAZINE INJ 10 MG/2 ML VIAL IV PUSH ONE (16:30)
[2017-08-16] MEDS ORDERED: ALUMINUM/MAGNESIUM/SIMETH 30 ML CUP PO ONE (16:30)
[2017-08-16] MEDS ORDERED: LIDOCAINE VISCOUS 2% SOLN 15 ML UDC PO ONE (16:30)
[2017-08-16] MEDS ORDERED: PANTOPRAZOLE SODIUM 40 MG VIAL IVP ONE (16:30)
[2017-08-16] MEDS ORDERED: MORPHINE SULFATE 2 MG/ML INJ IV PUSH ONE ×2 (16:30→19:30)
[2017-08-16 17:32] LABS: AMORPHOUS SEDIMENT, URINE RARE; BACTERIA, URINE FEW /hpf; BILIRUBIN, URINE NEG (NEG); BLOOD, URINE NEG (NEG); GLUCOSE,URINE NEG (NEG); KETONE, URINE NEG (NEG); NITRITE,URINE NEG (NEG); PH, URINE 5.5 (5.0-8.5); SQUAMOUS EPITHELIAL CELL URINE 5 /hpf (0-5); URINE COLOR LIGHT-YELLOW (YELLW/STRAW); URINE LEUKOCYTE ESTERASE LARGE (NEG)
[2017-08-16] MEDS ORDERED: MORPHINE SULFATE 2 MG/ML INJ IM ONE (18:30)
[2017-08-16] MEDS ORDERED: PROCHLORPERAZINE INJ 10 MG/2 ML VIAL IM ONE (18:30)
[2017-08-16] MEDS ORDERED: GABA800T PO (18:34)
[2017-08-16] MEDS ORDERED: BUTA1CAP PO (18:34)
[2017-08-16] MEDS ORDERED: PHENO60 PO (18:34)
--- NOTE | 2017-08-16 18:45 | RADRPT ---
EXAM DATE/TIME: 08/16/2017 17:54 [facility] COMPARISON: CT BRAIN W/O CONTRAST, June 08, 2017, 14:54. INDICATIONS : Dizziness and general weakness. RADIATION DOSE: 56.35 CTDIvol (mGy) MEDICAL HISTORY : Seizures. Hypertension. SURGICAL HISTORY : Hysterectomy. Fusion, cervical. ENCOUNTER: Initial ACUITY: 1 day PAIN SCALE: 3/10 LOCATION: Bilateral cranial TECHNIQUE: Multiple contiguous axial images were obtained of the head. Using automated exposure control and adj ustment of the mA and/or kV according to patient size, radiation dose was kept as low as reasonably a chievable to obtain optimal diagnostic quality images. DICOM format image data is available electro nically for review and comparison. FINDINGS: CEREBRUM: The ventricles are normal for age. No evidence of midline shift, mass lesion, hemorrhage or acute in farction. No extra-axial fluid collections are seen. POSTERIOR FOSSA: The cerebellum and brainstem are intact. The 4th ventricle is midline. The cerebellopontine angle i s unremarkable. EXTRACRANIAL: The visualized portion of the orbits is intact. SKULL: Post surgical findings with metallic hardware in the occipital region. CONCLUSION: No acute intracranial findings. Sonny Latham MD on August 16, 2017 at 18:41 Board Certified Radiologist. This report was verified electronically.
[2017-08-16] MEDS ORDERED: AMBI10TA PO (19:37)
[2017-08-16] MEDS ORDERED: CLON1 PO (19:37)
[2017-08-16 19:41] LABS: ALBUMIN 3.8 GM/DL (3.4-5.0); ALT (GPT) 15 U/L (10-53); AST (GOT) 16 U/L (15-37); BICARBONATE 18.8 MEQ/L (21.0-32.0); BLOOD UREA NITROGEN 10 MG/DL (7-18); CALCIUM 8.9 MG/DL (8.5-10.1); CHLORIDE 109 MEQ/L (98-107); CREATININE 0.86 MG/DL (0.50-1.00); GLOMERULAR FILTRATION RATE 72 ML/MIN (>89); GLUCOSE,RANDOM 81 MG/DL (74-106); SODIUM (NA) 138 MEQ/L (136-145)
[2017-08-16 19:49] LABS: ALKALINE PHOSPHATASE 100 U/L (45-117); TOTAL BILIRUBIN ADULT 0.2 MG/DL (0.2-1.0); TOTAL PROTEIN 7.5 GM/DL (6.4-8.2); TROPONIN I LESS THAN 0.02 NG/ML (0.02-0.05)
--- NOTE | 2017-08-16 20:05 | PD ---
Physical Exam Date Seen by Provider: Aug 16, 2017 Time Seen by Provider: 18:00 Narrative I, Dr. Quinonez, have reviewed the advance practice practitioner's documentation and am in agreement, met with the patient face to face, made the diagnosis, and the medical decision making was done by me. *My assessment and Findings: Patient seen and evaluated with PA, please see PA note for further details. She is here with multiple issues, dyspnea on exertion , hemoglobin of 6.1, fevers, and is suspected by PCP to have a GI bleed. A rectal exam was done by PA but not enough stool sample was able to be obtained and there is no obvious signs of Hemoccult positive stool at this time. Lab work has been ordered and the patient. However, there is difficulty with obtaining IV access, patient has had problems with axis issues in the past and a right femoral central line was done by me. Laboratory Tests Test 08/16/17 17:00 08/16/17 19:06 Urine Leukocyte Esterase LARGE (NEG) Urine RBC 4 /hpf (0-3) Urine Bacteria FEW /hpf (NONE) Chloride Level 109 MEQ/L (98-107) Carbon Dioxide Level 18.8 MEQ/L (21.0-32.0) Estimat Glomerular Filtration Rate 72 ML/MIN (>89) Troponin I LESS THAN 0.02 NG/ML Last [address] 08/16/17 1627 Signed Impressions: Service Date/Time: Wednesday, August 16, 2017 17:54 - CONCLUSION: No acute intracranial findings. Sonny Latham MD Considering history and recent anemia, I am waiting to confirm blood work and planning to transfuse the patient once confirmed and it made patient for further evaluation by GI. Data Data Last Documented VS Vital Signs Date Time Temp Pulse Resp B/P (MAP) Pulse Ox O2 Delivery O2 Flow Rate FiO2 08/16/17 19:33 70 19 98 Room Air 08/16/17 18:13 (108) 08/16/17 14:51 98.6 Orders Orders Electrocardiogram (08/16/17 15:21) Complete Blood Count With Diff (08/16/17 15:21) Comprehensive Metabolic Panel (08/16/17 15:21) Magnesium (Mg) (08/16/17 15:21) Ckmb (Isoenzyme) Profile (08/16/17 15:21) Troponin I (08/16/17 15:21) Act Partial Throm Time (Ptt) (08/16/17 15:21) Prothrombin Time / Inr (Pt) (08/16/17 15:21) Urinalysis - C+S If Indicated (08/16/17 15:21) Type And Screen (08/16/17 15:21) Thyroid Stimulating Hormone (08/16/17 15:21) Iv Access Insert/Monitor (08/16/17 16:27) Ecg Monitoring (08/16/17 16:27) Oximetry (08/16/17 16:27) Pantoprazole Inj (Protonix Inj) (08/16/17 16:30) Sodium Chlor 0.9% 1000 Ml Inj (Ns 1000 M (08/16/17 16:27) Sodium Chloride 0.9% Flush (Ns Flush) (08/16/17 16:30) Al-Mag Hy-Si 40-40-4 Mg/Ml Liq (Mag-Al P (08/16/17 16:30) Lidocaine 2% Viscous (Xylocaine 2% Visco (08/16/17 16:30) Prochlorperazine Inj (Compazine Inj) (08/16/17 16:30) Morphine Inj (Morphine Inj) (08/16/17 16:30) Ct Brain W/O Iv Contrast(Rout) (08/16/17 16:27) Influenzae A/B Antigen (08/16/17 16:30) Vascular Access Team Consult/P PRN (08/16/17 16:53) Vascular Poc Ultrasound (08/16/17 ) Morphine Inj (Morphine Inj) (08/16/17 18:30) Prochlorperazine Inj (Compazine Inj) (08/16/17 18:30) Morphine Inj (Morphine Inj) (08/16/17 19:30) CKMB (08/16/17 19:06) CKMB% (08/16/17 19:06) Labs Laboratory Tests Test 08/16/17 17:00 08/16/17 19:06 Urine Color LIGHT-YELLOW Urine Turbidity CLEAR Urine pH 5.5 Urine Specific [place] 1.005 Urine Protein NEG mg/dL Urine Glucose (UA) NEG mg/dL Urine Ketones NEG mg/dL Urine Occult Blood NEG Urine Nitrite NEG Urine Bilirubin NEG Urine Urobilinogen LESS THAN 2.0 MG/DL Urine Leukocyte Esterase LARGE Urine RBC 4 /hpf Urine WBC 3 /hpf Urine Squamous Epithelial Cells 5 /hpf Urine Amorphous Sediment RARE Urine Bacteria FEW /hpf Microscopic Urinalysis Comment CULT NOT INDICATED Blood Urea Nitrogen 10 MG/DL Creatinine 0.86 MG/DL Random Glucose 81 MG/DL Total Protein 7.5 GM/DL Albumin 3.8 GM/DL Calcium Level 8.9 MG/DL Magnesium Level 2.0 MG/DL Alkaline Phosphatase 100 U/L Aspartate Amino Transf (AST/SGOT) 16 U/L Alanine Aminotransferase (ALT/SGPT) 15 U/L Total Bilirubin 0.2 MG/DL Sodium Level 138 MEQ/L Potassium Level 4.0 MEQ/L Chloride Level 109 MEQ/L Carbon Dioxide Level 18.8 MEQ/L Anion Gap 10 MEQ/L Estimat Glomerular Filtration Rate 72 ML/MIN Total Creatine Kinase 128 U/L Troponin I LESS THAN 0.02 NG/ML Thyroid Stimulating Hormone 3rd Gen 1.980 uIU/ML MDM Medical Record Reviewed: Yes Supervised Visit with ALLY: Yes Procedures Procedure Narrative CENTRAL VENOUS LINE: The site was prepped with chlorohexidine and sterilely draped. It was infiltrated with 1% lidocaine plain. Ultrasound was used to identify the right femoral vein, The deep vein was cannulated using normal Seldinger technique. A central line was placed in the right femoral site and secured with simple interrupted suture. The site was sterilely dressed. The patient tolerated the procedure well. Diagnosis Primary Impression: Symptomatic anemia Condition: Stable Willy Quinonez MD Aug 16, 2017 20:05
[2017-08-16 21:04] LABS: AUTOMATED NEUTROPHIL # 2.5 TH/MM3 (1.8-7.7); BASOPHIL # 0.1 TH/MM3 (0-0.2); BASOPHIL % 1.1 % (0.0-2.0); EOSINOPHIL # 0.2 TH/MM3 (0-0.4); EOSINOPHIL % 4.4 % (0.0-4.0); HEMATOCRIT 25.8 % (35.0-46.0); LYMPH % 34.4 % (9.0-44.0); LYMPHOCYTE # 1.6 TH/MM3 (1.0-4.8); MEAN CELL VOLUME 81.1 FL (80.0-100.0); MEAN CORPUSCULAR HEMOGLOBIN 25.1 PG (27.0-34.0); MEAN PLATELET VOLUME 6.8 FL (7.0-11.0); MONO % 5.8 % (0.0-8.0); MONOCYTE # 0.3 TH/MM3 (0-0.9); NEUT % 54.3 % (16.0-70.0); PLATELET COUNT 307 TH/MM3 (150-450); RED BLOOD COUNT 3.19 MIL/MM3 (4.00-5.30); WHITE BLOOD COUNT 4.6 TH/MM3 (4.0-11.0)
[2017-08-16 21:16] LABS: INTERNATIONAL NORMALIZED RATIO 1.1 RATIO; PROTHROMBIN TIME - PATIENT 10.7 SEC (9.8-11.6)
[2017-08-16] MEDS ORDERED: SENNOSIDES 8.6 MG TAB PO PRN (21:45)
[2017-08-16] MEDS ORDERED: ACETAMINOPHEN 325 MG TAB PO PRN (21:45)
[2017-08-16] MEDS ORDERED: BISACODYL 10 MG SUPP RECTAL PRN (21:45)
[2017-08-16] MEDS ORDERED: LACTULOSE SYRUP 20 GM/30 ML CUP PO PRN (21:45)
[2017-08-16] MEDS ORDERED: MAGNESIUM HYDROXIDE SUSP 30 ML CUP PO PRN (21:45)
--- NOTE | 2017-08-16 21:46 | HHI.HP ---
[facility] Tala Soto, [facility] Admission Diagnosis Syncope/Symptomatic Anemia Diagnoses: (1) GI bleed Diagnosis: Principal (2) Symptomatic anemia Diagnosis: Principal (3) Dizziness Diagnosis: Principal (4) Dehydration Diagnosis: Principal (5) UTI (urinary tract infection) Diagnosis: Principal (6) Seizure disorder Diagnosis: Principal Travel History International Travel<30 Days: No Contact w/Intl Traveler <30 Da: No Traveled to Known Affected Are: No History of Present Illness This is a 41-year-old female with a PMH of Anxiety, Depression, COPD and Tobacco Abuse who presented to the ER w/ complaints of dizziness, SOB, low Hgb and near syncopal episode. Symptoms have been ongoing for approx 2wks, now w/ worsening complaints. Notes SOB worse w/ exertion, moderate severity, associated w/ dizziness. Last night pt notes significant dizziness w/ near syncopal event. No seizure activity reported. Today w/ fever at home of 102.5. Seen by PCP today, reports Hgb was 6.1. Denies hematemesis, but reports h/o GERD w/ dark bowel movements for the last several days. On arrival , BP 146/90, HR 69, O2 sat 96% on RA, Afebrile. CBC essentially unremarkable except for GFR 72. Troponin negative. INR 1.1. UA with LE and bacteriuria. CT Head with no acute findings. Hemoccult attempted, however not enough stool for testing. Review of Systems Except as stated in HPI: all other systems reviewed are Neg ROS: 14 point review of systems otherwise negative. Past Family Social History Past Medical History PMH: Anxiety, Depression, COPD and Tobacco Abuse Past Surgical History PAST SURGICAL HISTORY: , Hysterectomy, Cervical Fusion Allergies: Coded Allergies: Sulfa (Sulfonamide Antibiotics) (Verified Allergy, Severe, 08/16/17) azithromycin (Verified Allergy, Severe, 08/16/17) ondansetron (Verified Allergy, Severe, Swelling, 08/16/17) cyclobenzaprine (Verified Allergy, Intermediate, 08/16/17) propoxyphene (Verified Allergy, Intermediate, 08/16/17) Family History PAST FAMILY HISTORY: Reviewed. No h/o DM or CAD Social History PAST SOCIAL HISTORY: Negative for alcohol or drugs. Positive for tobacco. Physical Exam Vital Signs Vital Signs Date Time Temp Pulse Resp B/P (MAP) Pulse Ox O2 Delivery O2 Flow Rate FiO2 08/16/17 19:33 70 19 98 Room Air 08/16/17 18:13 (108) 08/16/17 14:51 98.6 69 14 146/90 (108) 96 Physical Exam PE: GENERAL: Middle-aged female in no acute distress. HEENT: PERRLA, EOMI. No scleral icterus or conjunctival pallor. No lid lag or facial droop. CARDIOVASCULAR: Regular rate and rhythm. No obvious murmurs to auscultation. No chest tenderness to palpation. RESPIRATORY: No obvious rhonchi or wheezing. Clear to auscultation. Breath sounds equal bilaterally. GASTROINTESTINAL: Abdomen soft, mild epigastric tenderness palpation, nondistended. BS normal. MUSCULOSKELETAL: Extremities without clubbing, cyanosis, or edema. No obvious deformities. NEUROLOGICAL: Awake, alert and oriented x4. No focal neurologic deficits. Moving both upper and lower extremities spontaneously. Laboratory Laboratory Tests Test 08/16/17 17:00 08/16/17 19:06 08/16/17 20:47 Urine Color LIGHT-YELLOW Urine Turbidity CLEAR Urine pH 5.5 Urine Specific [place] 1.005 Urine Protein NEG Urine Glucose (UA) NEG Urine Ketones NEG Urine Occult Blood NEG Urine Nitrite NEG Urine Bilirubin NEG Urine Urobilinogen LESS THAN 2.0 Urine Leukocyte Esterase LARGE Urine RBC 4 Urine WBC 3 Urine Squamous Epithelial Cells 5 Urine Amorphous Sediment RARE Urine Bacteria FEW Microscopic Urinalysis Comment CULT NOT INDICATED Blood Urea Nitrogen 10 Creatinine 0.86 Random Glucose 81 Total Protein 7.5 Albumin 3.8 Calcium Level 8.9 Magnesium Level 2.0 Alkaline Phosphatase 100 Aspartate Amino Transf (AST/SGOT) 16 Alanine Aminotransferase (ALT/SGPT) 15 Total Bilirubin 0.2 Sodium Level 138 Potassium Level 4.0 Chloride Level 109 Carbon Dioxide Level 18.8 Anion Gap 10 Estimat Glomerular Filtration Rate 72 Total Creatine Kinase 128 Creatine Kinase MB 1.9 Troponin I LESS THAN 0.02 Thyroid Stimulating Hormone 3rd Gen 1.980 White Blood Count 4.6 Red Blood Count 3.19 Hemoglobin 8.0 Hematocrit 25.8 Mean Corpuscular Volume 81.1 Mean Corpuscular Hemoglobin 25.1 Mean Corpuscular Hemoglobin Concent 31.0 Red Cell Distribution Width 20.0 Platelet Count 307 Mean Platelet Volume 6.8 Neutrophils (%) (Auto) 54.3 Lymphocytes (%) (Auto) 34.4 Monocytes (%) (Auto) 5.8 Eosinophils (%) (Auto) 4.4 Basophils (%) (Auto) 1.1 Neutrophils # (Auto) 2.5 Lymphocytes # (Auto) 1.6 Monocytes # (Auto) 0.3 Eosinophils # (Auto) 0.2 Basophils # (Auto) 0.1 CBC Comment DIFF FINAL Differential Comment Prothrombin Time 10.7 Prothromb Time International Ratio 1.1 Activated Partial Thromboplast Time 22.9 Date/Time Source Procedure Growth Status 08/16/17 17:00 Nasal Washing Influenza Types A,B Antigen (TIM) - Final NEGATIVE FOR FLU A AND B ANTIGEN.... Complete Result Diagram: 08/16/17204608/16/17 190 Caprini VTE Risk Assessment Caprini VTE Risk Assessment: No/Low Risk (score <= 1) VTE Pharm Contraindication: Active bleeding Caprini Risk Assessment Model Point Value = 1 Point Value = 2 Point Value = 3 Point Value = 5 Age 41-60 Minor surgery BMI > 25 kg/m2 Swollen legs Varicose veins or History of unexplained or recurrent spontaneous Oral contraceptives or hormone replacement Sepsis (< 1 month) Serious lung disease, including pneumonia (< 1 month) Abnormal pulmonary function Acute myocardial infarction Congestive heart failure (< 1 month) History of inflammatory bowel disease Medical patient at bed rest Age 61-74 Arthroscopic surgery Major open surgery (> 45 min) Laparoscopic surgery (> 45 min) Malignancy Confined to bed (> 72 hours) Immobilizing plaster cast Central venous access Age >= 75 History of VTE Family history of VTE Factor V Leiden Prothrombin [id number] Lupus anticoagulant Anticardiolipin antibodies Elevated serum homocysteine Heparin-induced thrombocytopenia Other congenital or acquired thrombophilia Stroke (< 1 month) Elective arthroplasty Hip, pelvis, or leg fracture Acute spinal cord injury (< 1 month) Prophylaxis Regimen Total Risk Factor Score Risk Level Prophylaxis Regimen 0-1 Low Early ambulation 2 Moderate Order ONE of the following: *Sequential Compression Device (SCD) *Heparin 5000 units SQ BID 3-4 Higher Order ONE of the following medications: *Heparin 5000 units SQ TID *Enoxaparin/Lovenox 40 mg SQ daily (WT < 150 kg, CrCl > 30 mL/min) *Enoxaparin/Lovenox 30 mg SQ daily (WT < 150 kg, CrCl > 10-29 mL/min) *Enoxaparin/Lovenox 30 mg SQ BID (WT < 150 kg, CrCl > 30 mL/min) AND/OR *Sequential Compression Device (SCD) 5 or more Highest Order ONE of the following medications: *Heparin 5000 units SQ TID (Preferred with Epidurals) *Enoxaparin/Lovenox 40 mg SQ daily (WT < 150 kg, CrCl > 30 mL/min) *Enoxaparin/Lovenox 30 mg SQ daily (WT < 150 kg, CrCl > 10-29 mL/min) *Enoxaparin/Lovenox 30 mg SQ BID (WT < 150 kg, CrCl > 30 mL/min) AND *Sequential Compression Device (SCD) Assessment and Plan Problem List: (1) GI bleed ICD Code: K92.2 - Gastrointestinal hemorrhage, unspecified (2) Symptomatic anemia ICD Code: D64.9 - Anemia, unspecified Status: Acute (3) Dehydration ICD Code: E86.0 - Dehydration (4) Dizziness ICD Code: R42 - Dizziness and giddiness (5) UTI (urinary tract infection) ICD Code: N39.0 - Urinary tract infection, site not specified (6) Seizure disorder ICD Code: G40.909 - Epilepsy, unspecified, not intractable, without status epilepticus Assessment and Plan A/P: 1. GI Bleed: +melena, Hemoccult attempted however not enough specimen for testing, in light of symptomatic anemia and melena will proceed w/ treatment for presumed GI Bleed. Protonix IV. Consult GI for further evaluation, likely EGD/Colonoscopy. Monitor Hgb/Hct. 2. Anemia: Symptomatic. Hgb 8.0, previously 7.9 on 06/09/17. Type & Screen. Check repeat Hgb at midnight, transfuse if <8. 3. Dizziness: Likely secondary to symptomatic anemia/GI Bleed. CT Head w/ no acute findings, images reviewed by me. Place on telemetry, monitor vitals. Repeat labs in am, replace electrolytes as needed. 4. Dehydration: GFR 72. IVF for hydration, repeat labs in am. 5. UTI: U/a w/ LE, mild bacteriuria, in light of fever and comorbidities will treat for uncomplicated UTI w/ IV Rocephin. IVF for hydration. 6. Seizure Disorder: Chronic. Resume home medications. Ativan prn if needed. 7. DVT Prophylaxis: SCD/Teds. Pharmacologic contraindication in light of GI Bleed 8. Labs/imaging/records reviewed by me, case discussed w/ ER physician at length. Physician Certification 2 Midnight Certification Type: Admission for Inpatient Services Order for Inpatient Services The services are ordered in accordance with Medicare regulations or non- Medicare payer requirements, as applicable. In the case of services not specified as inpatient-only, they are appropriately provided as inpatient services in accordance with the 2-midnight benchmark. Estimated LOS (days): 2 days is the estimated time the patient will need to remain in the hospital, assuming treatment plan goals are met and no additional complications. Post-Hospital Plan: Not yet determined Mariaa Pabon MD Aug 16, 2017 21:46
[2017-08-16] MEDS ORDERED: cefTRIAXone INJ 1,000 MG in SODIUM CHLORIDE 0.9% INJ 100 ML IV SCH (22:00)
[2017-08-16] MEDS: SODIUM CHLOR 0.9% 1000 ML INJ 1,000 ML IV SCH (23:28)
[2017-08-16] MEDS: ZOLPIDEM TARTRATE 10 MG TAB PO PRN (23:59)
[2017-08-17] VITALS (10 sets, daily range): BP systolic 112–154; BP diastolic 58–96; PULSE 68–95; RESP 15–20; TEMP 96.1–98.5; O2SAT 96–99
[2017-08-17] MEDS: ACETAMINOPHEN/HYDROcodone 325 MG/5 MG TAB PO PRN ×2 (03:30→15:22)
[2017-08-17 03:51] LABS: HEMOGLOBIN 7.1 GM/DL (11.6-15.3)
[2017-08-17] MEDS ORDERED: SODIUM CHLOR 0.9% 250 ML INJ 250 ML IV ONE (04:15)
[2017-08-17] MEDS: MORPHINE SULFATE 2 MG/ML INJ IV PUSH PRN ×5 (04:59→21:52)
[2017-08-17] MEDS: PROCHLORPERAZINE INJ 10 MG/2 ML VIAL IV PUSH PRN ×4 (05:00→21:52)
[2017-08-17] MEDS: PANTOPRAZOLE SODIUM 40 MG VIAL IV PUSH SCH ×2 (06:00→17:19)
[2017-08-17] MEDS: ACETAMIN 325 MG/BUTALBITAL 50 MG/CAFFEINE 40 MG TAB PO PRN (07:36)
--- NOTE | 2017-08-17 08:44 | PD.CONS ---
HPI History of Present Illness This is a 41 year old F who presented to the emergency department yesterday with complaints of SOB and dizziness increasing over the past two weeks. Reportedly had blood work done a week ago and received the results yesterday from her PCP, was told to come to the ER because her hemoglobin was 6.1. Pt does report severe epigastric pain increasing in frequency over the past two weeks, states sometimes it has even woken her up in the middle of the night. Takes Prilosec but it has not been providing relief in epigastric pain or acid reflux recently so she has also been taking Zantac over the counter with minimal relief. Reports black, tarry stools for the past two weeks. Also having nausea and vomiting, states the vomit is dark. Also complaining of dysphagia with solids, states feels like her food is getting stuck. Denies BRBPR or BRB in emesis, unintentional weight loss. Denies history of GIB. Has never had an EGD or colonoscopy. Denies ETOH. Current smoker, five cigarettes a day for the past two years. Denies illicit drug use. Denies NSAID use. Abdominal surgeries include appendectomy and 2 sections. H/H 7.08/27, pt has 2 U PRBCs ordered, one currently transfusing. (Maye Schmidt) PFSH Past Medical History Anxiety Depression COPD Seizure disorder SVT Past Surgical History x 2 Hysterectomy Cervical Fusion Appendectomy (Maye Schmidt) Coded Allergies: Sulfa (Sulfonamide Antibiotics) (Verified Allergy, Severe, 08/16/17) azithromycin (Verified Allergy, Severe, 08/16/17) ondansetron (Verified Allergy, Severe, Swelling, 08/16/17) cyclobenzaprine (Verified Allergy, Intermediate, 08/16/17) propoxyphene (Verified Allergy, Intermediate, 08/16/17) Family History PAST FAMILY HISTORY: Reviewed. No h/o DM or CAD Social History Smoker- five cigarettes a day Denies ETOH Denies illicit drug use (Maye Schmidt) Review of Systems Gastrointestinal: COMPLAINS OF: Abdominal pain (epigastric pain), Black stools , Diarrhea, Nausea, Vomiting, Difficulty Swallowing, Swelling of Abdomen, Heartburn, DENIES: Bloody stools, Constipation, Hematemesis (Maye Schmidt) GI Exam Vitals I&O Vital Signs Date Time Temp Pulse Resp B/P (MAP) Pulse Ox O2 Delivery O2 Flow Rate FiO2 08/17/17 06:36 97.5 80 17 119/65 97 08/17/17 06:08 97.7 80 16 112/58 96 08/17/17 05:04 15 08/17/17 04:30 15 08/17/17 03:47 98.0 75 18 125/73 (90) 98 08/17/17 01:24 98.5 68 18 113/71 (85) 96 08/16/17 22:33 08/16/17 19:33 70 19 98 Room Air 08/16/17 18:13 (108) 08/16/17 14:51 98.6 69 14 146/90 (108) 96 I/O 08/16/17 08/16/17 08/16/17 08/17/17 08/17/17 08/17/17 06:59 14:59 22:59 06:59 14:59 22:59 Intake Total 1000 ml 602 ml Balance 1000 ml 602 ml Intake IV Total 1000 ml 600 ml Blood Product IV Normal Saline Flush 2 ml Laboratory Test 08/16/17 17:00 08/16/17 19:06 08/16/17 20:47 08/17/17 03:20 Urine Color LIGHT-YELLOW Urine Turbidity CLEAR Urine pH 5.5 Urine Specific [place] 1.005 Urine Protein NEG mg/dL Urine Glucose (UA) NEG mg/dL Urine Ketones NEG mg/dL Urine Occult Blood NEG Urine Nitrite NEG Urine Bilirubin NEG Urine Urobilinogen LESS THAN 2.0 MG/DL Urine Leukocyte Esterase LARGE Urine RBC 4 /hpf Urine WBC 3 /hpf Urine Squamous Epithelial Cells 5 /hpf Urine Amorphous Sediment RARE Urine Bacteria FEW /hpf Microscopic Urinalysis Comment CULT NOT INDICATED Blood Urea Nitrogen 10 MG/DL Creatinine 0.86 MG/DL Random Glucose 81 MG/DL Total Protein 7.5 GM/DL Albumin 3.8 GM/DL Calcium Level 8.9 MG/DL Magnesium Level 2.0 MG/DL Alkaline Phosphatase 100 U/L Aspartate Amino Transf (AST/SGOT) 16 U/L Alanine Aminotransferase (ALT/SGPT) 15 U/L Total Bilirubin 0.2 MG/DL Sodium Level 138 MEQ/L Potassium Level 4.0 MEQ/L Chloride Level 109 MEQ/L Carbon Dioxide Level 18.8 MEQ/L Anion Gap 10 MEQ/L Estimat Glomerular Filtration Rate 72 ML/MIN Total Creatine Kinase 128 U/L Creatine Kinase MB 1.9 NG/ML Troponin I LESS THAN 0.02 NG/ML Thyroid Stimulating Hormone 3rd Gen 1.980 uIU/ML White Blood Count 4.6 TH/MM3 Red Blood Count 3.19 MIL/MM3 Hemoglobin 8.0 GM/DL 7.1 GM/DL Hematocrit 25.8 % 23.0 % Mean Corpuscular Volume 81.1 FL Mean Corpuscular Hemoglobin 25.1 PG Mean Corpuscular Hemoglobin Concent 31.0 % Red Cell Distribution Width 20.0 % Platelet Count 307 TH/MM3 Mean Platelet Volume 6.8 FL Neutrophils (%) (Auto) 54.3 % Lymphocytes (%) (Auto) 34.4 % Monocytes (%) (Auto) 5.8 % Eosinophils (%) (Auto) 4.4 % Basophils (%) (Auto) 1.1 % Neutrophils # (Auto) 2.5 TH/MM3 Lymphocytes # (Auto) 1.6 TH/MM3 Monocytes # (Auto) 0.3 TH/MM3 Eosinophils # (Auto) 0.2 TH/MM3 Basophils # (Auto) 0.1 TH/MM3 CBC Comment DIFF FINAL Differential Comment Prothrombin Time 10.7 SEC Prothromb Time International Ratio 1.1 RATIO Activated Partial Thromboplast Time 22.9 SEC Date/Time Source Procedure Growth Status 08/16/17 17:00 Nasal Washing Influenza Types A,B Antigen (TIM) - Final NEGATIVE FOR FLU A AND B ANTIGEN.... Complete Physical Examination HEENT: Pupils round and reactive to light; normocephalic; atraumatic; no jaundice. Throat is clear. NECK: Neck is supple, no JVD, no lymphadenopathy. CHEST: Chest is clear to auscultation and percussion. CARDIAC: Regular rate and rhythm with no murmur gallop or rubs. ABDOMEN: Soft, nondistended, nontender; no hepatosplenomegaly; bowel sounds are present in all four quadrants. EXTREMITIES: No clubbing, cyanosis, or edema. SKIN: Normal; no rash; no jaundice. ALUMINUM FABRICATION SUPERVISOR: No focal deficits; alert and oriented times three. (Maye Schmidt) Assessment and Plan Plan Assessment - Melena- Pt reports black stools for the past two weeks. Has also been vomiting, states the vomit has been dark. Denies history of GIB, NSAID use, ETOH. Does smoke 5 cigarettes a day. Has never had EGD or colonoscopy. H/H 7.08/27- 2 U PRBCs have been ordered- one is currently transfusing. Plan for EGD tomorrow. - Dysphagia with solids, feels like food gets stuck - Dizziness over the past two weeks- most likely secondary to severe anemia- CT head in ER negative. Pt does have history of seizure disorder- takes Phenobarbital Plan: - EGD tomorrow - Obtain consents - NPO after MN - Serial H/H - Transfuse as needed - Protonix - Supportive care Pt has been seen and examined by myself and Dr. Hernandes and this note is written on her behalf (Maye Schmidt) Physician Comments agree with above (Muna Hernandes MD) Maye Schmidt Aug 17, 2017 08:43 Muna Hernandes MD Aug 17, 2017 19:44
[2017-08-17] MEDS: FLUoxetine HCL 20 MG CAP PO SCH (09:22)
[2017-08-17] MEDS: ATENOLOL 50 MG TAB PO SCH ×2 (09:23→21:18)
[2017-08-17] MEDS: DOCUSATE SODIUM 50 MG/SENNA 8.6 MG TAB PO SCH ×2 (09:23→21:18)
[2017-08-17] MEDS: GABAPENTIN 400 MG CAP PO SCH ×3 (09:23→17:20)
[2017-08-17] MEDS: clonazePAM 1 MG TAB PO SCH ×3 (09:23→17:22)
[2017-08-17] MEDS: SODIUM CHLORIDE 0.9% FLUSH 10 ML FLUSH IV FLUSH SCH ×2 (09:24→21:20)
[2017-08-17] MEDS: SODIUM CHLOR 0.9% 1000 ML INJ 1,000 ML IV SCH ×2 (09:24→15:27)
[2017-08-17] MEDS: PHENobarbital 32.4 MG TAB PO SCH ×3 (10:16→17:21)
--- NOTE | 2017-08-17 15:53 | EKG ---
Date Performed: 08/16/2017 Time Performed: 16:39:39 PTAGE: 41 years EKG: Sinus rhythm POSSIBLE LEFT VENTRICULAR HYPERTROPHY Compared to previous tracing, Left ventricular hypertrophy is new ABNORMAL ECG PREVIOUS TRACING : 06/09/2017 14.18 DOCTOR: Garry Matias Interpretating Date/Time 08/17/2017 15:52:17
[2017-08-17] MEDS ORDERED: CHLORHEXIDINE GLUCONATE 2 % 1 PACK (2 CLOTHS) TOPICAL PRN (16:00)
[2017-08-17] MEDS ORDERED: SODIUM CHLORID 0.9% 500 ML IV PRN (16:00)
[2017-08-17] MEDS ORDERED: POVIDONE IODINE 5% (ANTISEPSIS KIT) 4 APPLICATIONS EACH NARE PRN (16:00)
[2017-08-17] MEDS ORDERED: LACTATED RINGER'S 1000 ML IV PRN (16:00)
[2017-08-17 19:04] LABS: AUTOMATED NEUTROPHIL # 4.2 TH/MM3 (1.8-7.7); BASOPHIL # 0.1 TH/MM3 (0-0.2); BASOPHIL % 0.9 % (0.0-2.0); EOSINOPHIL # 0.4 TH/MM3 (0-0.4); EOSINOPHIL % 5.3 % (0.0-4.0); HEMATOCRIT 32.9 % (35.0-46.0); HEMOGLOBIN 10.8 GM/DL (11.6-15.3); LYMPH % 29.4 % (9.0-44.0); LYMPHOCYTE # 2.2 TH/MM3 (1.0-4.8); MEAN CORPUSCULAR HEMOGLOBIN 26.9 PG (27.0-34.0); MEAN CORPUSCULAR HGB CONC 32.8 % (32.0-36.0); MEAN PLATELET VOLUME 7.7 FL (7.0-11.0); MONO % 7.4 % (0.0-8.0); MONOCYTE # 0.5 TH/MM3 (0-0.9); RED BLOOD COUNT 4.01 MIL/MM3 (4.00-5.30); RED CELL DISTRIBUTION WIDTH 18.7 % (11.6-17.2); WHITE BLOOD COUNT 7.4 TH/MM3 (4.0-11.0)
[2017-08-17 19:43] LABS: PLATELET COUNT 200 TH/MM3 (150-450)
[2017-08-17 20:57] LABS: HEMATOCRIT 33.1 % (35.0-46.0); HEMOGLOBIN 10.4 GM/DL (11.6-15.3)
--- NOTE | 2017-08-17 21:02 | HHI.PR ---
Subjective Remarks patient c/o neck pain after she passed out. Denies cp/sob. Objective Vitals Vital Signs Date Time Temp Pulse Resp B/P (MAP) Pulse Ox O2 Delivery O2 Flow Rate FiO2 08/17/17 15:39 96.5 95 15 154/89 (110) 99 08/17/17 11:15 96.8 86 18 146/87 98 08/17/17 11:04 96.8 86 18 146/87 (106) 98 08/17/17 10:07 96.1 81 15 133/96 97 08/17/17 08:45 96.1 81 15 133/96 (108) 97 08/17/17 06:36 97.5 80 17 119/65 97 08/17/17 06:08 97.7 80 16 112/58 96 08/17/17 05:04 15 08/17/17 04:30 15 08/17/17 03:47 98.0 75 18 125/73 (90) 98 08/17/17 01:24 98.5 68 18 113/71 (85) 96 08/16/17 22:33 I/O 08/16/17 08/16/17 08/16/17 08/17/17 08/17/17 08/17/17 07:00 15:00 23:00 07:00 15:00 23:00 Intake Total 1000 ml 602 ml 900 ml Balance 1000 ml 602 ml 900 ml Intake IV Total 1000 ml 600 ml 250 ml Packed Cells 400 ml Blood Product IV Normal Saline Flush 2 ml 250 ml Result Diagram: 08/17/17 2041 08/16/17 1906 Imaging Last Impressions Cervical Spine CT 08/18/17 0000 Signed Impressions: Service Date/Time: Friday, August 18, 2017 05:58 - CONCLUSION: Stable CT scan of the cervical spine compared to 06/08/2017. Moses Elmore MD Head CT 08/16/17 1627 Signed Impressions: Service Date/Time: Wednesday, August 16, 2017 17:54 - CONCLUSION: No acute intracranial findings. Sonny Latham MD Objective Remarks GENERAL: Middle-aged female in no acute distress. HEENT: PERRLA, EOMI. No scleral icterus or conjunctival pallor. No lid lag or facial droop. There is pain on palpation of posterior neck. CARDIOVASCULAR: Regular rate and rhythm. No obvious murmurs to auscultation. No chest tenderness to palpation. RESPIRATORY: No obvious rhonchi or wheezing. Clear to auscultation. Breath sounds equal bilaterally. GASTROINTESTINAL: Abdomen soft, mild epigastric tenderness palpation, nondistended. BS normal. MUSCULOSKELETAL: Extremities without clubbing, cyanosis, or edema. No obvious deformities. NEUROLOGICAL: Awake, alert and oriented x4. No focal neurologic deficits. Moving both upper and lower extremities spontaneously. Medications and IVs Current Medications Medications (Trade) Dose Ordered Sig/Gia Route Start Time Stop Time Status Last Admin (NS Flush) 2 ml UNSCH PRN IV FLUSH 08/16/17 21:45 (NS Flush) 2 ml BID IV FLUSH 08/17/17 09:00 08/18/17 08:38 (Tylenol) 650 mg Q6H PRN PO 08/16/17 21:45 ([place] 5-325 Mg) 1 tab Q4H PRN PO 08/16/17 21:45 08/18/17 00:09 (Nahomi-Colace) 1 tab BID PO 08/17/17 09:00 08/18/17 08:38 (Milk Of Magnesia Liq) 30 ml Q12H PRN PO 08/16/17 21:45 (Senokot) 17.2 mg Q12H PRN PO 08/16/17 21:45 (Dulcolax Supp) 10 mg DAILY PRN RECTAL 08/16/17 21:45 (Lactulose Liq) 30 ml DAILY PRN PO 08/16/17 21:45 (Protonix Inj) 40 mg Q12H IV PUSH 08/17/17 06:00 08/18/17 05:42 (Tenormin) 50 mg BID PO 08/17/17 09:00 08/17/17 21:18 (KlonoPIN) 1 mg TID PO 08/17/17 09:00 08/18/17 08:37 (PROzac) 40 mg DAILY PO 08/17/17 09:00 08/18/17 08:38 (Neurontin) 800 mg TID PO 08/17/17 09:00 08/18/17 08:38 (PHENobarbital) 64.8 mg TID PO 08/17/17 09:00 08/18/17 08:39 (Ambien) 10 mg HS PRN PO 08/16/17 21:45 08/17/17 21:52 (Fioricet 325-50-40) 2 tab Q4H PRN PO 08/16/17 22:30 08/18/17 08:40 (Compazine Inj) 5 mg Q4H PRN IV PUSH 08/16/17 23:45 08/18/17 08:38 Lactated Ringer's 1,000 ml @ 30 mls/hr Q24H PRN IV 08/17/17 16:00 08/20/17 15:59 Sodium Chloride 500 ml @ 30 mls/hr [id number] PRN IV 08/17/17 16:00 08/20/17 15:59 (Betadine 5% Antisepsis Kit) 1 applic PLASTICS NURSE PRN EACH NARE 08/17/17 16:00 08/20/17 15:59 (Chlorhexidine 2% Cloth) 3 pack PLASTICS NURSE PRN TOPICAL 08/17/17 16:00 08/20/17 15:59 (Morphine Inj) 4 mg Q3H PRN IV PUSH 08/17/17 21:45 08/18/17 05:43 A/P Problem List: (1) GI bleed ICD Code: K92.2 - Gastrointestinal hemorrhage, unspecified (2) Symptomatic anemia ICD Code: D64.9 - Anemia, unspecified Status: Acute (3) Dehydration ICD Code: E86.0 - Dehydration (4) Dizziness ICD Code: R42 - Dizziness and giddiness (5) UTI (urinary tract infection) ICD Code: N39.0 - Urinary tract infection, site not specified (6) Seizure disorder ICD Code: G40.909 - Epilepsy, unspecified, not intractable, without status epilepticus Assessment and Plan 1. GI Bleed: +melena, Hemoccult attempted however not enough specimen for testing, in light of symptomatic anemia and melena will proceed w/ treatment for presumed GI Bleed. Protonix IV. Consult GI for further evaluation, likely EGD/Colonoscopy. Monitor Hgb/Hct. 08/17 Appreciate GI consultation. for EGD in am. Patient is sp transfusion 1 unit of PRBC;s qith appropriate hemoglobin response. 2. Anemia: Symptomatic. Hgb 8.0, previously 7.9 on 06/09/17. Type & Screen. Check repeat Hgb at midnight, transfuse if <8. 08/17 sp transfusion of 1 unit of PRBC. 3. Dizziness: Likely secondary to symptomatic anemia/GI Bleed. CT Head w/ no acute findings, images reviewed by me. Place on telemetry, monitor vitals. Repeat labs in am, replace electrolytes as needed. 08/17 Dizziness resolved. 4. Dehydration: GFR 72. IVF for hydration, repeat labs in am. 5. UTI: U/a w/ LE, mild bacteriuria, in light of fever and comorbidities will treat for uncomplicated UTI w/ IV Rocephin. IVF for hydration. 6. Seizure Disorder: Chronic. Resume home medications. Ativan prn if needed. 7. DVT Prophylaxis: SCD/Teds. Pharmacologic contraindication in light of GI Bleed. 8. Neck pain: Will obtain a CT of the cervical spine. Discharge Planning for EGD in am. Pending CT cervical spine. Tod Moreno MD Aug 17, 2017 21:02
[2017-08-17 21:14] LABS: ALBUMIN 3.7 GM/DL (3.4-5.0); AST (GOT) 16 U/L (15-37); BICARBONATE 20.5 MEQ/L (21.0-32.0); BLOOD UREA NITROGEN 10 MG/DL (7-18); CALCIUM 8.5 MG/DL (8.5-10.1); CHLORIDE 114 MEQ/L (98-107); CREATININE 0.84 MG/DL (0.50-1.00); GLOMERULAR FILTRATION RATE 74 ML/MIN (>89); GLUCOSE,RANDOM 67 MG/DL (74-106); SODIUM (NA) 142 MEQ/L (136-145)
[2017-08-17 21:17] LABS: ALKALINE PHOSPHATASE 101 U/L (45-117); ALT (GPT) 14 U/L (10-53); TOTAL BILIRUBIN ADULT 0.2 MG/DL (0.2-1.0); TOTAL PROTEIN 7.2 GM/DL (6.4-8.2)
[2017-08-17] MEDS: ZOLPIDEM TARTRATE 10 MG TAB PO PRN (21:52)
[2017-08-18] VITALS (10 sets, daily range): BP systolic 104–180; BP diastolic 62–106; PULSE 78–100; RESP 17–20; TEMP 96.6–98.9; O2SAT 95–98
[2017-08-18] MEDS: ACETAMINOPHEN/HYDROcodone 325 MG/5 MG TAB PO PRN ×3 (00:09→21:09)
[2017-08-18] MEDS: ACETAMIN 325 MG/BUTALBITAL 50 MG/CAFFEINE 40 MG TAB PO PRN ×3 (00:37→14:32)
[2017-08-18] MEDS: MORPHINE SULFATE 2 MG/ML INJ IV PUSH PRN ×5 (01:23→22:49)
[2017-08-18] MEDS: SODIUM CHLOR 0.9% 1000 ML INJ 1,000 ML IV SCH (01:32)
[2017-08-18] MEDS: PROCHLORPERAZINE INJ 10 MG/2 ML VIAL IV PUSH PRN ×4 (05:41→22:48)
[2017-08-18] MEDS: PANTOPRAZOLE SODIUM 40 MG VIAL IV PUSH SCH ×2 (05:42→17:34)
--- NOTE | 2017-08-18 06:46 | RADRPT ---
EXAM DATE/TIME: 08/18/2017 05:58 [facility] COMPARISON: CT CERVICAL SPINE W/O CONTRAST, June 08, 2017, 14:54. INDICATIONS : Chronic pain. RADIATION DOSE: 26.31 CTDIvol (mGy) MEDICAL HISTORY : Seizures. Hypertension. SURGICAL HISTORY : Hysterectomy. Cervical fusion. ENCOUNTER: Initial ACUITY: 1 day PAIN SCALE: 7/10 LOCATION: Bilateral neck TECHNIQUE: Volumetric scanning of the cervical spine was performed. Multiplanar reconstructions in the sagittal, coronal and oblique axial planes were performed. Using automated exposure control and adjustment o f the mA and/or kV according to patient size, radiation dose was kept as low as reasonably achievable to obtain optimal diagnostic quality images. DICOM format image data is available electronically f or review and comparison. FINDINGS: Today's examination compared to the prior study of 06/08/2017. There has been no significant changes w ith the appearance of the cervical spine. There continues to be evidence of previous posterior cervic al-occipital and cervical thoracic fusion down to the level of T2. There continues to be no change in the alignment or position of the cervical spine. The hardware is grossly intact. There is stable chr onic wedge compression of C5. There continues to be kyphosis of the cervical spine without significan t change. No definite solid bridging is seen at C2-C3. There continues to be bony fusion from C3-C6. No significant extra dural defects are seen on the canal. The neural foramina appear to be patent casimiro aterally at the levels imaged. CONCLUSION: Stable CT scan of the cervical spine compared to 06/08/2017. Moses Elmore MD on August 18, 2017 at 6:38 Board Certified Radiologist. This report was verified electronically.
[2017-08-18] MEDS: clonazePAM 1 MG TAB PO SCH ×3 (08:37→17:34)
[2017-08-18] MEDS: DOCUSATE SODIUM 50 MG/SENNA 8.6 MG TAB PO SCH ×2 (08:38→21:08)
[2017-08-18] MEDS: FLUoxetine HCL 20 MG CAP PO SCH (08:38)
[2017-08-18] MEDS: SODIUM CHLORIDE 0.9% FLUSH 10 ML FLUSH IV FLUSH SCH ×2 (08:38→21:00)
[2017-08-18] MEDS: GABAPENTIN 400 MG CAP PO SCH ×3 (08:38→17:34)
[2017-08-18] MEDS: PHENobarbital 32.4 MG TAB PO SCH ×3 (08:39→17:35)
[2017-08-18] MEDS: ATENOLOL 50 MG TAB PO SCH ×2 (08:40→21:08)
[2017-08-18 10:39] LABS: AUTOMATED NEUTROPHIL # 3.9 TH/MM3 (1.8-7.7); BASOPHIL # 0.1 TH/MM3 (0-0.2); EOSINOPHIL # 0.3 TH/MM3 (0-0.4); EOSINOPHIL % 4.4 % (0.0-4.0); HEMATOCRIT 32.6 % (35.0-46.0); HEMOGLOBIN 10.3 GM/DL (11.6-15.3); LYMPH % 23.9 % (9.0-44.0); LYMPHOCYTE # 1.5 TH/MM3 (1.0-4.8); MEAN CELL VOLUME 82.2 FL (80.0-100.0); MEAN CORPUSCULAR HGB CONC 31.6 % (32.0-36.0); MEAN PLATELET VOLUME 6.9 FL (7.0-11.0); MONOCYTE # 0.6 TH/MM3 (0-0.9); NEUT % 61.7 % (16.0-70.0); PLATELET COUNT 318 TH/MM3 (150-450); RED BLOOD COUNT 3.97 MIL/MM3 (4.00-5.30); RED CELL DISTRIBUTION WIDTH 18.9 % (11.6-17.2); WHITE BLOOD COUNT 6.3 TH/MM3 (4.0-11.0)
[2017-08-18 11:08] LABS: ALBUMIN 3.7 GM/DL (3.4-5.0); BICARBONATE 24.2 MEQ/L (21.0-32.0); BLOOD UREA NITROGEN 10 MG/DL (7-18); CALCIUM 8.7 MG/DL (8.5-10.1); CHLORIDE 110 MEQ/L (98-107); CREATININE 0.82 MG/DL (0.50-1.00); GLOMERULAR FILTRATION RATE 76 ML/MIN (>89); GLUCOSE,RANDOM 83 MG/DL (74-106); MAGNESIUM 1.8 MG/DL (1.5-2.5); SODIUM (NA) 141 MEQ/L (136-145)
[2017-08-18 11:10] LABS: ALT (GPT) 14 U/L (10-53); AST (GOT) 17 U/L (15-37); PHOSPHORUS 3.5 MG/DL (2.5-4.9)
[2017-08-18 11:12] LABS: ALKALINE PHOSPHATASE 100 U/L (45-117); TOTAL BILIRUBIN ADULT 0.2 MG/DL (0.2-1.0); TOTAL PROTEIN 7.3 GM/DL (6.4-8.2)
--- NOTE | 2017-08-18 13:44 | HHI.PR ---
Subjective Remarks Patient states feels nauseous. Also c/o dizziness - describes it as the room spinning around her and is states she used to be on meclizine for vertigo. Denies fevers or chills, no vomiting. States that neck pain is controlled with current medications. Objective Vitals Vital Signs Date Time Temp Pulse Resp B/P (MAP) Pulse Ox O2 Delivery O2 Flow Rate FiO2 08/18/17 12:40 98.2 100 20 180/90 (120) 98 08/18/17 09:06 96.8 90 20 177/98 (124) 96 08/18/17 04:40 97.0 95 20 104/62 (76) 96 08/18/17 00:00 96.6 89 20 165/106 (125) 98 08/17/17 20:00 98.4 88 20 145/61 (89) 99 08/17/17 15:39 96.5 95 15 154/89 (110) 99 I/O 08/17/17 08/17/17 08/17/17 08/18/17 08/18/17 08/18/17 07:00 15:00 23:00 07:00 15:00 23:00 Intake Total 602 ml 900 ml 360 ml Output Total 1275 ml Balance 602 ml 900 ml -915 ml Intake Oral 360 ml IV Total 600 ml 250 ml Packed Cells 400 ml Blood Product IV Normal Saline Flush 2 ml 250 ml Output Urine Total 1275 ml Result Diagram: 08/18/17 1000 08/18/17 1000 Imaging Last Impressions Cervical Spine CT 08/18/17 0000 Signed Impressions: Service Date/Time: Friday, August 18, 2017 05:58 - CONCLUSION: Stable CT scan of the cervical spine compared to 06/08/2017. Moses Elmore MD Head CT 08/16/17 1627 Signed Impressions: Service Date/Time: Wednesday, August 16, 2017 17:54 - CONCLUSION: No acute intracranial findings. Sonny Latham MD Objective Remarks GENERAL: Middle-aged female in no acute distress. HEENT: PERRLA, EOMI. No scleral icterus or conjunctival pallor. No lid lag or facial droop. There is pain on palpation of posterior neck. CARDIOVASCULAR: Regular rate and rhythm. No obvious murmurs to auscultation. No chest tenderness to palpation. RESPIRATORY: No obvious rhonchi or wheezing. Clear to auscultation. Breath sounds equal bilaterally. GASTROINTESTINAL: Abdomen soft, mild epigastric tenderness palpation, nondistended. BS normal. MUSCULOSKELETAL: Extremities without clubbing, cyanosis, or edema. No obvious deformities. NEUROLOGICAL: Awake, alert and oriented x4. No focal neurologic deficits. Moving both upper and lower extremities spontaneously. Procedures none Medications and IVs Current Medications Medications (Trade) Dose Ordered Sig/Gia Route Start Time Stop Time Status Last Admin (NS Flush) 2 ml UNSCH PRN IV FLUSH 08/16/17 21:45 (NS Flush) 2 ml BID IV FLUSH 08/17/17 09:00 08/18/17 08:38 (Tylenol) 650 mg Q6H PRN PO 08/16/17 21:45 ([place] 5-325 Mg) 1 tab Q4H PRN PO 08/16/17 21:45 08/18/17 12:47 (Nahomi-Colace) 1 tab BID PO 08/17/17 09:00 08/18/17 08:38 (Milk Of Magnesia Liq) 30 ml Q12H PRN PO 08/16/17 21:45 (Senokot) 17.2 mg Q12H PRN PO 08/16/17 21:45 (Dulcolax Supp) 10 mg DAILY PRN RECTAL 08/16/17 21:45 (Lactulose Liq) 30 ml DAILY PRN PO 08/16/17 21:45 (Protonix Inj) 40 mg Q12H IV PUSH 08/17/17 06:00 08/18/17 05:42 (Tenormin) 50 mg BID PO 08/17/17 09:00 08/17/17 21:18 (KlonoPIN) 1 mg TID PO 08/17/17 09:00 08/18/17 12:46 (PROzac) 40 mg DAILY PO 08/17/17 09:00 08/18/17 08:38 (Neurontin) 800 mg TID PO 08/17/17 09:00 08/18/17 12:47 (PHENobarbital) 64.8 mg TID PO 08/17/17 09:00 08/18/17 12:48 (Ambien) 10 mg HS PRN PO 08/16/17 21:45 08/17/17 21:52 (Fioricet 325-50-40) 2 tab Q4H PRN PO 08/16/17 22:30 08/18/17 08:40 (Compazine Inj) 5 mg Q4H PRN IV PUSH 08/16/17 23:45 08/18/17 08:38 Lactated Ringer's 1,000 ml @ 30 mls/hr Q24H PRN IV 08/17/17 16:00 08/20/17 15:59 Sodium Chloride 500 ml @ 30 mls/hr [id number] PRN IV 08/17/17 16:00 08/20/17 15:59 (Betadine 5% Antisepsis Kit) 1 applic CARTON LINER PRN EACH NARE 08/17/17 16:00 08/20/17 15:59 (Chlorhexidine 2% Cloth) 3 pack CARTON LINER PRN TOPICAL 08/17/17 16:00 08/20/17 15:59 (Morphine Inj) 4 mg Q3H PRN IV PUSH 08/17/17 21:45 08/18/17 09:57 (Catapres) 0.2 mg TID PO 08/18/17 18:00 Urinary Catheter: No Vascular Central Line Catheter: No A/P Problem List: (1) GI bleed ICD Code: K92.2 - Gastrointestinal hemorrhage, unspecified (2) Symptomatic anemia ICD Code: D64.9 - Anemia, unspecified Status: Acute (3) Dehydration ICD Code: E86.0 - Dehydration (4) Dizziness ICD Code: R42 - Dizziness and giddiness (5) UTI (urinary tract infection) ICD Code: N39.0 - Urinary tract infection, site not specified (6) Seizure disorder ICD Code: G40.909 - Epilepsy, unspecified, not intractable, without status epilepticus Assessment and Plan 1. GI Bleed: +melena, Hemoccult attempted however not enough specimen for testing, in light of symptomatic anemia and melena will proceed w/ treatment for presumed GI Bleed. Protonix IV. Consult GI for further evaluation, likely EGD/Colonoscopy. Monitor Hgb/Hct. 08/17 Appreciate GI consultation. for EGD in am. Patient is sp transfusion 1 unit of PRBC;s qith appropriate hemoglobin response. 08/18 EGD pending. 2. Anemia: Symptomatic. Hgb 8.0, previously 7.9 on 06/09/17. Type & Screen. Check repeat Hgb at midnight, transfuse if <8. 08/17 sp transfusion of 1 unit of PRBC. 08/18 Hb stable. 3. Dizziness: Likely secondary to symptomatic anemia/GI Bleed. CT Head w/ no acute findings, images reviewed by me. Place on telemetry, monitor vitals. Repeat labs in am, replace electrolytes as needed. 08/17 Dizziness resolved. 08/18 patient still complains of dizziness and describes it as if the room is spinning around. Patient has a history of vertigo. We'll start the patient on oral meclizine. 4. Dehydration: Resolved after IVF. 5. UTI: U/a w/ LE, mild bacteriuria, in light of fever and comorbidities will treat for uncomplicated UTI w/ IV Rocephin. IVF for hydration. 08/18 UA negative. DC antibiotics 6. Seizure Disorder: Chronic. Resume home medications. Ativan prn if needed. 7. DVT Prophylaxis: SCD/Teds. Pharmacologic contraindication in light of GI Bleed. 8. Neck pain: 08/18 CT of the cervical spine shows a stable CT scan of the cervical spine compared to a previous CT scan on 06/08/17. Discharge Planning EGD pending. Still c/o dizziness. Tod Moreno MD Aug 18, 2017 13:44
[2017-08-18] MEDS ORDERED: ENALAPRILAT 1.25 MG/ML VIAL IV PUSH PRN (13:45)
[2017-08-18] MEDS ORDERED: MECLIZINE HCL 25 MG TAB PO ONE (14:00)
--- NOTE | 2017-08-18 16:55 | HHI.GIFU ---
GI Follow-up Note Consult Follow-up Subjective: Patient laying in bed comfortably, feeling better .Due to OR schedule , egd cannot be done today .No bleeding, hb stable Objective: PHYSICAL EXAMINATION: Vitals signs stable No fever Vital Signs Date Time Temp Pulse Resp B/P (MAP) Pulse Ox O2 Delivery O2 Flow Rate FiO2 08/18/17 12:40 98.2 100 20 180/90 (120) 98 08/18/17 09:06 96.8 90 20 177/98 (124) 96 HEENT: Pupils round and reactive to light; normocephalic; atraumatic; no jaundice. Throat is clear. NECK: Neck is supple, no JVD, no lymphadenopathy. CHEST: Chest is clear to auscultation and percussion. CARDIAC: Regular rate and rhythm with no murmur gallop or rubs. ABDOMEN: Soft, nondistended, nontender; no hepatosplenomegaly; bowel sounds are present in all four quadrants. EXTREMITIES: No clubbing, cyanosis, or edema. SKIN: Normal; no rash; no jaundice. EMERGENCY DEPARTMENT NURSE: No focal deficits; alert and oriented times three. Available Data (labs, X- Rays, Procedues) : Laboratory Tests Test 08/16/17 17:00 08/16/17 19:06 08/16/17 20:47 08/17/17 03:20 Urine Color LIGHT-YELLOW Urine Turbidity CLEAR Urine pH 5.5 Urine Specific [place] 1.005 Urine Protein NEG mg/dL Urine Glucose (UA) NEG mg/dL Urine Ketones NEG mg/dL Urine Occult Blood NEG Urine Nitrite NEG Urine Bilirubin NEG Urine Urobilinogen LESS THAN 2.0 MG/DL Urine Leukocyte Esterase LARGE Urine RBC 4 /hpf Urine WBC 3 /hpf Urine Squamous Epithelial Cells 5 /hpf Urine Amorphous Sediment RARE Urine Bacteria FEW /hpf Microscopic Urinalysis Comment CULT NOT INDICATED Blood Urea Nitrogen 10 MG/DL Creatinine 0.86 MG/DL Random Glucose 81 MG/DL Total Protein 7.5 GM/DL Albumin 3.8 GM/DL Calcium Level 8.9 MG/DL Magnesium Level 2.0 MG/DL Alkaline Phosphatase 100 U/L Aspartate Amino Transf (AST/SGOT) 16 U/L Alanine Aminotransferase (ALT/SGPT) 15 U/L Total Bilirubin 0.2 MG/DL Sodium Level 138 MEQ/L Potassium Level 4.0 MEQ/L Chloride Level 109 MEQ/L Carbon Dioxide Level 18.8 MEQ/L Anion Gap 10 MEQ/L Estimat Glomerular Filtration Rate 72 ML/MIN Total Creatine Kinase 128 U/L Creatine Kinase MB 1.9 NG/ML Troponin I LESS THAN 0.02 NG/ML Thyroid Stimulating Hormone 3rd Gen 1.980 uIU/ML White Blood Count 4.6 TH/MM3 Red Blood Count 3.19 MIL/MM3 Hemoglobin 8.0 GM/DL 7.1 GM/DL Hematocrit 25.8 % 23.0 % Mean Corpuscular Volume 81.1 FL Mean Corpuscular Hemoglobin 25.1 PG Mean Corpuscular Hemoglobin Concent 31.0 % Red Cell Distribution Width 20.0 % Platelet Count 307 TH/MM3 Mean Platelet Volume 6.8 FL Neutrophils (%) (Auto) 54.3 % Lymphocytes (%) (Auto) 34.4 % Monocytes (%) (Auto) 5.8 % Eosinophils (%) (Auto) 4.4 % Basophils (%) (Auto) 1.1 % Neutrophils # (Auto) 2.5 TH/MM3 Lymphocytes # (Auto) 1.6 TH/MM3 Monocytes # (Auto) 0.3 TH/MM3 Eosinophils # (Auto) 0.2 TH/MM3 Basophils # (Auto) 0.1 TH/MM3 CBC Comment DIFF FINAL Differential Comment Prothrombin Time 10.7 SEC Prothromb Time International Ratio 1.1 RATIO Activated Partial Thromboplast Time 22.9 SEC Test 08/17/17 18:32 08/17/17 20:41 08/18/17 10:00 White Blood Count 7.4 TH/MM3 6.3 TH/MM3 Red Blood Count 4.01 MIL/MM3 3.97 MIL/MM3 Hemoglobin 10.8 GM/DL 10.4 GM/DL 10.3 GM/DL Hematocrit 32.9 % 33.1 % 32.6 % Mean Corpuscular Volume 82.0 FL 82.2 FL Mean Corpuscular Hemoglobin 26.9 PG 26.0 PG Mean Corpuscular Hemoglobin Concent 32.8 % 31.6 % Red Cell Distribution Width 18.7 % 18.9 % Platelet Count 200 TH/MM3 318 TH/MM3 Mean Platelet Volume 7.7 FL 6.9 FL Neutrophils (%) (Auto) 57.0 % 61.7 % Lymphocytes (%) (Auto) 29.4 % 23.9 % Monocytes (%) (Auto) 7.4 % 9.0 % Eosinophils (%) (Auto) 5.3 % 4.4 % Basophils (%) (Auto) 0.9 % 1.0 % Neutrophils # (Auto) 4.2 TH/MM3 3.9 TH/MM3 Lymphocytes # (Auto) 2.2 TH/MM3 1.5 TH/MM3 Monocytes # (Auto) 0.5 TH/MM3 0.6 TH/MM3 Eosinophils # (Auto) 0.4 TH/MM3 0.3 TH/MM3 Basophils # (Auto) 0.1 TH/MM3 0.1 TH/MM3 CBC Comment AUTO DIFF DIFF FINAL Differential Comment AUTO DIFF CONFIRMED Blood Urea Nitrogen 10 MG/DL 10 MG/DL Creatinine 0.84 MG/DL 0.82 MG/DL Random Glucose 67 MG/DL 83 MG/DL Total Protein 7.2 GM/DL 7.3 GM/DL Albumin 3.7 GM/DL 3.7 GM/DL Calcium Level 8.5 MG/DL 8.7 MG/DL Alkaline Phosphatase 101 U/L 100 U/L Aspartate Amino Transf (AST/SGOT) 16 U/L 17 U/L Alanine Aminotransferase (ALT/SGPT) 14 U/L 14 U/L Total Bilirubin 0.2 MG/DL 0.2 MG/DL Sodium Level 142 MEQ/L 141 MEQ/L Potassium Level 4.5 MEQ/L 4.3 MEQ/L Chloride Level 114 MEQ/L 110 MEQ/L Carbon Dioxide Level 20.5 MEQ/L 24.2 MEQ/L Anion Gap 8 MEQ/L 7 MEQ/L Estimat Glomerular Filtration Rate 74 ML/MIN 76 ML/MIN Phosphorus Level 3.5 MG/DL Magnesium Level 1.8 MG/DL ASSESSMENT/PLAN: gi bleeding -hemodynamically stable , no active bleeding anemia secondary gi bleeding -s/p prbc Recommendations resume diet ppi egd with dilatation in am due to or schedule egd had to be postpone for tomorrow It was a pleasure seeing Mike Huerta. Thank you for this consult. Entered by: Muna Rahman MD Aug 18, 2017 16:55
[2017-08-18] MEDS ORDERED: RESP: ALBUTEROL 2.5 MG/IPRATROPIUM 0.5 MG NEB (PRN) NEB (17:15)
[2017-08-18] MEDS: cloNIDine HCL 0.2 MG TAB PO SCH (17:34)
[2017-08-18] MEDS: MECLIZINE HCL 25 MG TAB PO SCH (21:08)
[2017-08-19] MEDS: ZOLPIDEM TARTRATE 10 MG TAB PO PRN (00:38)
[2017-08-19] MEDS: ACETAMIN 325 MG/BUTALBITAL 50 MG/CAFFEINE 40 MG TAB PO PRN ×3 (00:38→13:37)
[2017-08-19 03:13] VITALS: BP 162/92; PULSE 78; RESP 18; TEMP 98.4; O2SAT 95
[2017-08-19] MEDS: PANTOPRAZOLE SODIUM 40 MG VIAL IV PUSH SCH ×2 (05:47→18:31)
[2017-08-19] MEDS: MECLIZINE HCL 25 MG TAB PO SCH ×3 (05:48→22:14)
[2017-08-19] MEDS: PROCHLORPERAZINE INJ 10 MG/2 ML VIAL IV PUSH PRN ×2 (06:30→11:22)
[2017-08-19] MEDS: MORPHINE SULFATE 2 MG/ML INJ IV PUSH PRN ×2 (06:31→11:23)
[2017-08-19 07:37] VITALS: BP 139/82; PULSE 82; RESP 20; TEMP 98.1; O2SAT 93
[2017-08-19] MEDS: SODIUM CHLORIDE 0.9% FLUSH 10 ML FLUSH IV FLUSH SCH ×2 (08:01→21:00)
[2017-08-19] MEDS: cloNIDine HCL 0.2 MG TAB PO SCH ×3 (08:01→18:34)
[2017-08-19] MEDS: FLUoxetine HCL 20 MG CAP PO SCH (08:01)
[2017-08-19] MEDS: ATENOLOL 50 MG TAB PO SCH ×2 (08:01→22:14)
[2017-08-19] MEDS: DOCUSATE SODIUM 50 MG/SENNA 8.6 MG TAB PO SCH ×2 (08:02→22:14)
[2017-08-19] MEDS: PHENobarbital 32.4 MG TAB PO SCH ×3 (08:02→18:34)
[2017-08-19] MEDS: GABAPENTIN 400 MG CAP PO SCH ×3 (08:03→18:32)
[2017-08-19] MEDS: clonazePAM 1 MG TAB PO SCH ×3 (08:03→18:33)
--- NOTE | 2017-08-19 10:35 | PD.PROCEDR ---
GI Procedure PROCEDURE PERFORMED EGD with biopsy INDICATION FOR PROCEDURE Melena, anemia PROCEDURE: The procedure, risks and benefits were discussed with Ms. Huerta and informed consent was obtained. Anesthesia sedated her with Diprivan. She was placed in the left lateral decubitus position. EGD: The Pentax videoscope was introduced through the oropharynx and advanced to the second portion of the duodenum under direct visualization. Retroflexion was performed in the stomach. FINDINGS: The esophagus this appeared to be unremarkable with normal limits the Z line appeared to be regular The stomach there was a small hiatal hernia also noted still food residue in the stomach obscuring some portions of the stomach also noted erythema with a superficial ulceration around the pyloric channel with mild limitation to the pylorus this was biopsied The duodenum this appeared to be unremarkable for the most part but biopsies were taken to rule out celiac ESTIMATED BLOOD LOSS: None SPECIMENS REMOVED: Biopsies from the stomach and the duodenum COMPLICATIONS: None IMPRESSION: Small hiatal hernia Food residue suggesting gastroparesis versus incomplete emptying Pyloric ulcer Possible Duodenitis PLAN: Await biopsies Avoid NSAIDs and aspirin Continue with PPI therapy Protonix 40 mg twice a day EGD in 2 months with possible dilation Mechanical soft diet Follow-up with GI post discharge Sami Abraham MD Aug 19, 2017 10:35
[2017-08-19 11:49] VITALS: BP 157/103; PULSE 88; RESP 21; TEMP 98.4; O2SAT 94
[2017-08-19] MEDS ORDERED: PROPOFOL 200 MG/20 ML AMP IV ONE (12:00)
[2017-08-19] MEDS: ACETAMINOPHEN/HYDROcodone 325 MG/5 MG TAB PO PRN ×2 (14:36→19:13)
--- NOTE | 2017-08-19 17:37 | HHI.PR ---
Subjective Remarks Patient just came back from EGD with biopsy at noon. Patient denies cp/sob. Seems to be groggy. Objective Vitals Vital Signs Date Time Temp Pulse Resp B/P (MAP) Pulse Ox O2 Delivery O2 Flow Rate FiO2 08/19/17 11:49 98.4 88 21 157/103 (121) 94 08/19/17 10:40 98.1 79 16 125/74 (91) 95 Manual Cuff/Auscultation 08/19/17 07:37 98.1 82 20 139/82 (101) 93 08/19/17 03:13 98.4 78 18 162/92 (115) 95 08/18/17 23:24 98.4 78 18 148/82 (104) 95 08/18/17 19:46 98.8 84 17 147/89 (108) 96 08/18/17 18:00 168/90 (116) I/O 08/18/17 08/18/17 08/18/17 08/19/17 08/19/17 08/19/17 07:00 15:00 23:00 07:00 15:00 23:00 Intake Total 360 ml 750 ml 400 ml Output Total 1275 ml Balance -915 ml 750 ml 400 ml Intake Oral 360 ml 750 ml IV Total 200 ml Other 200 ml Output Urine Total 1275 ml Result Diagram: 08/19/17 0825 08/18/17 1000 Imaging Last Impressions Cervical Spine CT 08/18/17 0000 Signed Impressions: Service Date/Time: Friday, August 18, 2017 05:58 - CONCLUSION: Stable CT scan of the cervical spine compared to 06/08/2017. Moses Elmore MD Head CT 08/16/17 1627 Signed Impressions: Service Date/Time: Wednesday, August 16, 2017 17:54 - CONCLUSION: No acute intracranial findings. Sonny Latham MD Objective Remarks GENERAL: Middle-aged female in no acute distress. HEENT: PERRLA, EOMI. No scleral icterus or conjunctival pallor. No lid lag or facial droop. There is pain on palpation of posterior neck. CARDIOVASCULAR: Regular rate and rhythm. No obvious murmurs to auscultation. No chest tenderness to palpation. RESPIRATORY: No obvious rhonchi or wheezing. Clear to auscultation. Breath sounds equal bilaterally. GASTROINTESTINAL: Abdomen soft, mild epigastric tenderness palpation, nondistended. BS normal. MUSCULOSKELETAL: Extremities without clubbing, cyanosis, or edema. No obvious deformities. NEUROLOGICAL: Awake, alert and oriented x4. No focal neurologic deficits. Moving both upper and lower extremities spontaneously. Procedures none Medications and IVs Current Medications Medications (Trade) Dose Ordered Sig/Gia Route Start Time Stop Time Status Last Admin (NS Flush) 2 ml UNSCH PRN IV FLUSH 08/16/17 21:45 (NS Flush) 2 ml BID IV FLUSH 08/17/17 09:00 08/19/17 08:01 (Tylenol) 650 mg Q6H PRN PO 08/16/17 21:45 ([place] 5-325 Mg) 1 tab Q4H PRN PO 08/16/17 21:45 08/19/17 14:36 ([place]-Colace) 1 tab BID PO 08/17/17 09:00 08/19/17 08:02 (Milk Of Magnesia Liq) 30 ml Q12H PRN PO 08/16/17 21:45 (Senokot) 17.2 mg Q12H PRN PO 08/16/17 21:45 (Dulcolax Supp) 10 mg DAILY PRN RECTAL 08/16/17 21:45 (Lactulose Liq) 30 ml DAILY PRN PO 08/16/17 21:45 (Protonix Inj) 40 mg Q12H IV PUSH 08/17/17 06:00 08/19/17 05:47 (Tenormin) 50 mg BID PO 08/17/17 09:00 08/19/17 08:01 (KlonoPIN) 1 mg TID PO 08/17/17 09:00 08/19/17 12:02 (PROzac) 40 mg DAILY PO 08/17/17 09:00 08/19/17 08:01 (Neurontin) 800 mg TID PO 08/17/17 09:00 08/19/17 12:02 (PHENobarbital) 64.8 mg TID PO 08/17/17 09:00 08/19/17 12:02 (Ambien) 10 mg HS PRN PO 08/16/17 21:45 08/19/17 00:38 (Fioricet 325-50-40) 2 tab Q4H PRN PO 08/16/17 22:30 08/19/17 13:37 (Compazine Inj) 5 mg Q4H PRN IV PUSH 08/16/17 23:45 08/19/17 11:22 Lactated Ringer's 1,000 ml @ 30 mls/hr Q24H PRN IV 08/17/17 16:00 08/20/17 15:59 08/19/17 08:17 Sodium Chloride 500 ml @ 30 mls/hr [id number] PRN IV 08/17/17 16:00 08/20/17 15:59 (Betadine 5% Antisepsis Kit) 1 applic READING INTER[employer]ION TEACHER PRN EACH NARE 08/17/17 16:00 08/20/17 15:59 (Chlorhexidine 2% Cloth) 3 pack READING [employer]ION TE[employer]ER PRN TOPICAL 08/17/17 16:00 08/20/17 15:59 (Catapres) 0.2 mg TID PO 08/18/17 18:00 08/19/17 12:02 (Vasotec Inj) 1.25 mg Q6H PRN IV PUSH 08/18/17 13:45 08/18/17 16:08 (Antivert) 25 mg Q8HR PO 08/18/17 22:00 08/19/17 13:33 (Duoneb Neb) 1 ampule Q6HR NEB PRN NEB 08/18/17 17:15 A/P Problem List: (1) GI bleed ICD Code: K92.2 - Gastrointestinal hemorrhage, unspecified (2) Symptomatic anemia ICD Code: D64.9 - Anemia, unspecified Status: Acute (3) Dehydration ICD Code: E86.0 - Dehydration (4) Dizziness ICD Code: R42 - Dizziness and giddiness (5) UTI (urinary tract infection) ICD Code: N39.0 - Urinary tract infection, site not specified (6) Seizure disorder ICD Code: G40.909 - Epilepsy, unspecified, not intractable, without status epilepticus Assessment and Plan 1. GI Bleed: +melena, Hemoccult attempted however not enough specimen for testing, in light of symptomatic anemia and melena will proceed w/ treatment for presumed GI Bleed. Protonix IV. Consult GI for further evaluation, likely EGD/Colonoscopy. Monitor Hgb/Hct. 08/17 Appreciate GI consultation. for EGD in am. Patient is sp transfusion 1 unit of PRBC;s qith appropriate hemoglobin response. 08/18 EGD pending. 08/19 status post EGD with findings of a small hiatal hernia, food residue suggesting gastroparesis versus incomplete emptying, pyloric ulcer and possible duodenitis. Await biopsies, avoid NSAIDs and aspirin. Continue with PPI therapy with Protonix 40 mg by mouth twice a day. GI recommends EGD 2 months with possible dilation. Mechanical soft diet. 2. Anemia: Symptomatic. Hgb 8.0, previously 7.9 on 06/09/17. Type & Screen. Check repeat Hgb at midnight, transfuse if <8. 08/17 sp transfusion of 1 unit of PRBC. 08/19 Hb stable. 3. Dizziness: Likely secondary to symptomatic anemia/GI Bleed. CT Head w/ no acute findings, images reviewed by me. Place on telemetry, monitor vitals. Repeat labs in am, replace electrolytes as needed. 08/17 Dizziness resolved. 08/18 patient still complains of dizziness and describes it as if the room is spinning around. Patient has a history of vertigo. We'll start the patient on oral meclizine. 08/19 Dizziness resolved. 4. Dehydration: Resolved after IVF. 5. UTI: U/a w/ LE, mild bacteriuria, in light of fever and comorbidities will treat for uncomplicated UTI w/ IV Rocephin. IVF for hydration. 08/18 UA negative. DC antibiotics 6. Seizure Disorder: Chronic. Resume home medications. Ativan prn if needed. 7. DVT Prophylaxis: SCD/Teds. Pharmacologic contraindication in light of GI Bleed. 8. Neck pain: 08/18 CT of the cervical spine shows a stable CT scan of the cervical spine compared to a previous CT scan on 06/08/17. 08/19 Will DC IV Morphine as RN states patient is looking for IV morphine and requesting it frequently. CT cervical spine does not show any injury that would need IV morphine. I will keep oral opiate medications. Discharge Planning DC Pending PT evaluation. Tod Moreno MD Aug 19, 2017 17:37
[2017-08-19 18:28] VITALS: BP 117/76; PULSE 75; RESP 16; TEMP 95.7; O2SAT 92
[2017-08-19 20:40] VITALS: BP 119/66; PULSE 71; RESP 18; TEMP 97.5; O2SAT 92
[2017-08-20 03:19] VITALS: BP 111/55; PULSE 74; RESP 18
[2017-08-20] MEDS: MECLIZINE HCL 25 MG TAB PO SCH ×3 (05:30→20:39)
[2017-08-20] MEDS: PANTOPRAZOLE SODIUM 40 MG VIAL IV PUSH SCH ×2 (05:31→17:52)
[2017-08-20 07:44] VITALS: BP 134/75; PULSE 76; RESP 16; TEMP 98.7; O2SAT 94
[2017-08-20] MEDS: SODIUM CHLORIDE 0.9% FLUSH 10 ML FLUSH IV FLUSH SCH ×2 (08:22→20:39)
[2017-08-20] MEDS: FLUoxetine HCL 20 MG CAP PO SCH (08:23)
[2017-08-20] MEDS: DOCUSATE SODIUM 50 MG/SENNA 8.6 MG TAB PO SCH ×2 (08:23→20:41)
[2017-08-20] MEDS: clonazePAM 1 MG TAB PO SCH ×3 (08:23→17:52)
[2017-08-20] MEDS: ACETAMIN 325 MG/BUTALBITAL 50 MG/CAFFEINE 40 MG TAB PO PRN ×2 (08:23→17:55)
[2017-08-20] MEDS: PHENobarbital 32.4 MG TAB PO SCH ×3 (08:23→17:51)
[2017-08-20] MEDS: cloNIDine HCL 0.2 MG TAB PO SCH ×3 (08:23→17:52)
[2017-08-20] MEDS: ATENOLOL 50 MG TAB PO SCH ×2 (08:23→20:39)
[2017-08-20] MEDS: GABAPENTIN 400 MG CAP PO SCH ×3 (08:23→17:52)
--- NOTE | 2017-08-20 08:53 | HHI.GIFU ---
Subjective Remarks Patient drowsy and answered simple questions yes or no Continues to have symptoms of nausea and some mild dull gastric pain, states onset approximately 2 weeks ago Mild obesity Denies any diarrhea or constipation (Tisha Pate) Objective Vitals I&O Vital Signs Date Time Temp Pulse Resp B/P (MAP) Pulse Ox O2 Delivery O2 Flow Rate FiO2 08/20/17 07:44 98.7 76 16 134/75 (94) 94 08/20/17 03:19 74 18 111/55 (73) 08/19/17 20:40 97.5 71 18 119/66 (83) 92 08/19/17 18:28 95.7 75 16 117/76 (90) 92 08/19/17 11:49 98.4 88 21 157/103 (121) 94 08/19/17 10:40 98.1 79 16 125/74 (91) 95 Manual Cuff/Auscultation I/O 08/19/17 08/19/17 08/19/17 08/20/17 08/20/17 08/20/17 07:00 15:00 23:00 07:00 15:00 23:00 Intake Total 750 ml 400 ml Balance 750 ml 400 ml Intake Oral 750 ml IV Total 200 ml Other 200 ml Laboratory Date/Time Source Procedure Growth Status 08/16/17 17:00 Nasal Washing Influenza Types A,B Antigen (TIM) - Final NEGATIVE FOR FLU A AND B ANTIGEN.... Complete Imaging Last Impressions Cervical Spine CT 08/18/17 0000 Signed Impressions: Service Date/Time: Friday, August 18, 2017 05:58 - CONCLUSION: Stable CT scan of the cervical spine compared to 06/08/2017. Moses Elmore MD Head CT 08/16/17 1627 Signed Impressions: Service Date/Time: Wednesday, August 16, 2017 17:54 - CONCLUSION: No acute intracranial findings. Sonny Latham MD Physical Exam HEENT: Pupils round and reactive to light; normocephalic; atraumatic; no jaundice. NECK: Neck is supple, no JVD, no lymphadenopathy. CHEST: Chest is clear to auscultation and percussion. CARDIAC: Regular rate and rhythm with no murmur gallop or rubs. ABDOMEN: Soft, nondistended, mild dull gastric discomfort bowel sounds soft EXTREMITIES: No clubbing, cyanosis, or edema, mild obesity. SKIN: Normal; no rash; no jaundice. RELAY MECHANIC: No focal deficits; alert and oriented times three. (Tisha Pate) Assessment and Plan Plan Assessment/History - Melena- Pt reports black stools for the past two weeks. Has also been vomiting, states the vomit has been dark. Denies history of GIB, NSAID use, ETOH. Does smoke 5 cigarettes a day. No previous hx, EGD or colonoscopy. H/H 7.08/27- 2 U PRBCs have been ordered- one is currently transfusing. - HGB stable at 10. 4 - Dysphagia with solids, feels like food gets stuck - Dizziness over the past two weeks- most likely secondary to severe anemia- CT head in ER negative. Pt does have history of seizure disorder- takes Phenobarbital - S/P EGD 08/19, Small hiatal hernia, Food residue suggesting gastroparesis versus incomplete emptying, Pyloric ulcer possible Duodenitis Plan: - Diet heart healthy - Gastric emptying study today, consider Reglan - Transfuse as needed , Call for any acute bleeding. - Monitor Hgb/Hct - Continue Protonix, will transition to by mouth - Supportive care - Encourage physical activity getting up out of bed, this goal therapy currently in room to work with her Pt has been seen and examined by myself and Dr. Abraham and this note is written on her behalf (Tisha Pate) Physician Comments Patient seen and examined Agree with above Continue with current supportive care Monitor labs Gastric emptying severely impaired consideration can be made for erythromycin 250 mg half hour before meals or as needed (Sami Abraham MD) Tisha Pate Aug 20, 2017 08:53 Sami Abraham MD Aug 21, 2017 01:24
[2017-08-20] MEDS: ACETAMINOPHEN/HYDROcodone 325 MG/5 MG TAB PO PRN ×3 (09:54→19:29)
[2017-08-20 11:22] VITALS: BP 135/76; PULSE 70; RESP 18; TEMP 98.4; O2SAT 91; O2SAT 96
--- NOTE | 2017-08-20 14:55 | RADRPT ---
EXAM DATE/TIME: 08/20/2017 12:59 [facility] COMPARISON: No previous studies available for comparison. INDICATIONS : Abdominal pain with nausea and vomiting. DOSE: 1.1 mCi Tc99m Sulfur Colloid Labeled Whole egg PO IMAGIN hr MEDICAL HISTORY : Hypertension. Chronic obstructive pulmonary disease. Seizures. SURGICAL HISTORY : Fusion, cervical. Hysterectomy. ENCOUNTER: Initial ACUITY: 3 days PAIN SCALE: 6/10 LOCATION: Abdomen. TECHNIQUE: Following the oral ingestion of radiotracer-labeled meal, dynamic sequential images in the [place] projec tion were acquired with simultaneous computer acquisition. The data set was decay-corrected. FINDINGS: There is virtually no gastric emptying during the course of 60 minutes of scanning beyond which the p atient refused to continue the exam. CONCLUSION: Severely impaired gastric emptying Blair Beltran MD on August 20, 2017 at 14:41 Board Certified Radiologist. This report was verified electronically.
[2017-08-20 15:50] LABS: HEMATOCRIT 36.8 % (35.0-46.0); HEMOGLOBIN 11.8 GM/DL (11.6-15.3); MEAN CELL VOLUME 83.7 FL (80.0-100.0); MEAN CORPUSCULAR HEMOGLOBIN 26.7 PG (27.0-34.0); MEAN CORPUSCULAR HGB CONC 31.9 % (32.0-36.0); MEAN PLATELET VOLUME 6.9 FL (7.0-11.0); PLATELET COUNT 295 TH/MM3 (150-450); RED CELL DISTRIBUTION WIDTH 19.6 % (11.6-17.2); WHITE BLOOD COUNT 7.2 TH/MM3 (4.0-11.0)
--- NOTE | 2017-08-20 16:35 | HHI.PR ---
Subjective Remarks Patient sleeping. Denies cp/sob. Denies nausea or vomiting. Objective Vitals Vital Signs Date Time Temp Pulse Resp B/P (MAP) Pulse Ox O2 Delivery O2 Flow Rate FiO2 08/20/17 11:22 98.4 70 18 135/76 (95) 96 08/20/17 07:44 98.7 76 16 134/75 (94) 94 08/20/17 03:19 74 18 111/55 (73) 08/19/17 20:40 97.5 71 18 119/66 (83) 92 08/19/17 18:28 95.7 75 16 117/76 (90) 92 I/O 08/19/17 08/19/17 08/19/17 08/20/17 08/20/17 08/20/17 07:00 15:00 23:00 07:00 15:00 23:00 Intake Total 750 ml 400 ml Balance 750 ml 400 ml Intake Oral 750 ml IV Total 200 ml Other 200 ml Result Diagram: 08/20/17 1500 08/18/17 1000 Imaging Last Impressions Gastric Emptying Nuclear Medicine 08/20/17 0000 Signed Impressions: Service Date/Time: Sunday, August 20, 2017 12:59 - CONCLUSION: Severely impaired gastric emptying Blair Beltran MD Cervical Spine CT 08/18/17 0000 Signed Impressions: Service Date/Time: Friday, August 18, 2017 05:58 - CONCLUSION: Stable CT scan of the cervical spine compared to 06/08/2017. Moses Elmore MD Head CT 08/16/17 1627 Signed Impressions: Service Date/Time: Wednesday, August 16, 2017 17:54 - CONCLUSION: No acute intracranial findings. Sonny Latham MD Objective Remarks GENERAL: Middle-aged female in no acute distress. HEENT: PERRLA, EOMI. No scleral icterus or conjunctival pallor. No lid lag or facial droop. There is pain on palpation of posterior neck. CARDIOVASCULAR: Regular rate and rhythm. No obvious murmurs to auscultation. No chest tenderness to palpation. RESPIRATORY: No obvious rhonchi or wheezing. Clear to auscultation. Breath sounds equal bilaterally. GASTROINTESTINAL: Abdomen soft, mild epigastric tenderness palpation, nondistended. BS normal. MUSCULOSKELETAL: Extremities without clubbing, cyanosis, or edema. No obvious deformities. NEUROLOGICAL: Awake, alert and oriented x4. No focal neurologic deficits. Moving both upper and lower extremities spontaneously. Procedures none Medications and IVs Current Medications Medications (Trade) Dose Ordered Sig/Gia Route Start Time Stop Time Status Last Admin (NS Flush) 2 ml UNSCH PRN IV FLUSH 08/16/17 21:45 (NS Flush) 2 ml BID IV FLUSH 08/17/17 09:00 08/20/17 08:22 (Tylenol) 650 mg Q6H PRN PO 08/16/17 21:45 ([place] 5-325 Mg) 1 tab Q4H PRN PO 08/16/17 21:45 08/20/17 14:48 ([place]omi-Colace) 1 tab BID PO 08/17/17 09:00 08/20/17 08:23 (Milk Of Magnesia Liq) 30 ml Q12H PRN PO 08/16/17 21:45 (Senokot) 17.2 mg Q12H PRN PO 08/16/17 21:45 (Dulcolax Supp) 10 mg DAILY PRN RECTAL 08/16/17 21:45 (Lactulose Liq) 30 ml DAILY PRN PO 08/16/17 21:45 (Protonix Inj) 40 mg Q12H IV PUSH 08/17/17 06:00 08/20/17 05:31 (Tenormin) 50 mg BID PO 08/17/17 09:00 08/20/17 08:23 (KlonoPIN) 1 mg TID PO 08/17/17 09:00 08/20/17 14:47 (PROzac) 40 mg DAILY PO 08/17/17 09:00 08/20/17 08:23 (Neurontin) 800 mg TID PO 08/17/17 09:00 08/20/17 14:47 (PHENobarbital) 64.8 mg TID PO 08/17/17 09:00 08/20/17 13:00 (Ambien) 10 mg HS PRN PO 08/16/17 21:45 08/19/17 00:38 (Fioricet 325-50-40) 2 tab Q4H PRN PO 08/16/17 22:30 08/20/17 08:23 (Compazine Inj) 5 mg Q4H PRN IV PUSH 1/12/18 23:45 08/19/17 11:22 (Catapres) 0.2 mg TID PO 08/18/17 18:00 08/20/17 14:47 (Vasotec Inj) 1.25 mg Q6H PRN IV PUSH 08/18/17 13:45 08/18/17 16:08 (Antivert) 25 mg Q8HR PO 08/18/17 22:00 08/20/17 14:47 (Duoneb Neb) 1 ampule Q6HR NEB PRN NEB 08/18/17 17:15 (Reglan) 5 mg QID PO 08/20/17 18:00 A/P Problem List: (1) GI bleed ICD Code: K92.2 - Gastrointestinal hemorrhage, unspecified (2) Symptomatic anemia ICD Code: D64.9 - Anemia, unspecified Status: Acute (3) Dehydration ICD Code: E86.0 - Dehydration (4) Dizziness ICD Code: R42 - Dizziness and giddiness (5) UTI (urinary tract infection) ICD Code: N39.0 - Urinary tract infection, site not specified (6) Seizure disorder ICD Code: G40.909 - Epilepsy, unspecified, not intractable, without status epilepticus (7) Gastroparesis ICD Code: K31.84 - Gastroparesis Plan: Gastric emptying study ordered by gastroenterology. S-shaped emptying study showed severely impaired gastric emptying. This could be medication induced secondary to narcotic pain medication use. Avoid narcotic pain medications. Will start the patient on Reglan 5 mg by mouth 3 times a day. Case was discussed with gastroenterology midlevel. Assessment and Plan 1. GI Bleed: +melena, Hemoccult attempted however not enough specimen for testing, in light of symptomatic anemia and melena will proceed w/ treatment for presumed GI Bleed. Protonix IV. Consult GI for further evaluation, likely EGD/Colonoscopy. Monitor Hgb/Hct. 08/17 Appreciate GI consultation. for EGD in am. Patient is sp transfusion 1 unit of PRBC;s qith appropriate hemoglobin response. 08/18 EGD pending. 08/19 status post EGD with findings of a small hiatal hernia, food residue suggesting gastroparesis versus incomplete emptying, pyloric ulcer and possible duodenitis. Await biopsies, avoid NSAIDs and aspirin. Continue with PPI therapy with Protonix 40 mg by mouth twice a day. GI recommends EGD 2 months with possible dilation. Mechanical soft diet. 2. Anemia: Symptomatic. Hgb 8.0, previously 7.9 on 06/09/17. Type & Screen. Check repeat Hgb at midnight, transfuse if <8. 08/17 sp transfusion of 1 unit of PRBC. 08/19 Hb stable. 3. Dizziness: Likely secondary to symptomatic anemia/GI Bleed. CT Head w/ no acute findings, images reviewed by me. Place on telemetry, monitor vitals. Repeat labs in am, replace electrolytes as needed. 08/17 Dizziness resolved. 08/18 patient still complains of dizziness and describes it as if the room is spinning around. Patient has a history of vertigo. We'll start the patient on oral meclizine. 08/19 Dizziness resolved. 4. Dehydration: Resolved after IVF. 5. UTI: U/a w/ LE, mild bacteriuria, in light of fever and comorbidities will treat for uncomplicated UTI w/ IV Rocephin. IVF for hydration. 08/18 UA negative. DC antibiotics 6. Seizure Disorder: Chronic. Resume home medications. Ativan prn if needed. 7. DVT Prophylaxis: SCD/Teds. Pharmacologic contraindication in light of GI Bleed. 8. Neck pain: 08/18 CT of the cervical spine shows a stable CT scan of the cervical spine compared to a previous CT scan on 06/08/17. 08/19 Will DC IV Morphine as RN states patient is looking for IV morphine and requesting it frequently. CT cervical spine does not show any injury that would need IV morphine. I will keep oral opiate medications. Discharge Planning DC Pending PT evaluation. Tod Moreno MD Aug 20, 2017 16:35
[2017-08-20 17:04] VITALS: BP 123/75; PULSE 74; RESP 18; TEMP 97.9; O2SAT 94
[2017-08-20] MEDS: METOCLOPRAMIDE HCL 10 MG TAB PO SCH ×2 (17:55→20:39)
[2017-08-20 21:25] VITALS: BP 115/71; PULSE 77; RESP 18; TEMP 97.6; O2SAT 95
[2017-08-21] VITALS: BP 114/54; PULSE 76; RESP 20; TEMP 97.9; O2SAT 97
[2017-08-21] MEDS: ACETAMINOPHEN/HYDROcodone 325 MG/5 MG TAB PO PRN ×2 (00:13→09:50)
[2017-08-21 04:43] VITALS: BP 123/73; PULSE 76; RESP 19; TEMP 98; O2SAT 94
[2017-08-21] MEDS: PANTOPRAZOLE SODIUM 40 MG VIAL IV PUSH SCH ×2 (05:24→18:26)
[2017-08-21] MEDS: ACETAMIN 325 MG/BUTALBITAL 50 MG/CAFFEINE 40 MG TAB PO PRN ×2 (05:25→11:59)
[2017-08-21] MEDS: MECLIZINE HCL 25 MG TAB PO SCH ×2 (05:25→14:00)
[2017-08-21 07:23] VITALS: BP 131/71; PULSE 83; RESP 16; TEMP 98; O2SAT 95
[2017-08-21] MEDS: ATENOLOL 50 MG TAB PO SCH ×2 (09:50→23:49)
[2017-08-21] MEDS: GABAPENTIN 400 MG CAP PO SCH ×3 (09:50→18:23)
[2017-08-21] MEDS: METOCLOPRAMIDE HCL 10 MG TAB PO SCH ×4 (09:51→23:50)
[2017-08-21] MEDS: cloNIDine HCL 0.2 MG TAB PO SCH ×3 (09:51→18:24)
[2017-08-21] MEDS: clonazePAM 1 MG TAB PO SCH ×3 (09:51→18:23)
[2017-08-21] MEDS: FLUoxetine HCL 20 MG CAP PO SCH (09:51)
[2017-08-21] MEDS: DOCUSATE SODIUM 50 MG/SENNA 8.6 MG TAB PO SCH ×2 (09:51→21:00)
[2017-08-21] MEDS: SODIUM CHLORIDE 0.9% FLUSH 10 ML FLUSH IV FLUSH SCH ×2 (09:53→23:51)
[2017-08-21] MEDS: PHENobarbital 32.4 MG TAB PO SCH ×3 (09:53→18:24)
--- NOTE | 2017-08-21 10:36 | HHI.GIFU ---
Subjective Remarks drowsy, but arouses to voice States that she had black tarry stool this morning Abdominal pain complaints epigastric and right lower quadrant Hemoglobin stable at 11.8 (Tisha Pate) Objective Vitals I&O Vital Signs Date Time Temp Pulse Resp B/P (MAP) Pulse Ox O2 Delivery O2 Flow Rate FiO2 08/21/17 07:23 98.0 83 16 131/71 (91) 95 08/21/17 04:43 98.0 76 19 123/73 (90) 94 08/21/17 00:00 97.9 76 20 114/54 (74) 97 08/20/17 21:25 97.6 77 18 115/71 (86) 95 08/20/17 17:04 97.9 74 18 123/75 (91) 94 08/20/17 11:22 98.4 70 18 135/76 (95) 96 Laboratory Laboratory Tests Test 08/20/17 15:00 White Blood Count 7.2 Red Blood Count 4.40 Hemoglobin 11.8 Hematocrit 36.8 Mean Corpuscular Volume 83.7 Mean Corpuscular Hemoglobin 26.7 Mean Corpuscular Hemoglobin Concent 31.9 Red Cell Distribution Width 19.6 Platelet Count 295 Mean Platelet Volume 6.9 Date/Time Source Procedure Growth Status 08/16/17 17:00 Nasal Washing Influenza Types A,B Antigen (TIM) - Final NEGATIVE FOR FLU A AND B ANTIGEN.... Complete Imaging Last Impressions Gastric Emptying Nuclear Medicine 08/20/17 0000 Signed Impressions: Service Date/Time: Sunday, August 20, 2017 12:59 - CONCLUSION: Severely impaired gastric emptying Blair Beltran MD Cervical Spine CT 08/18/17 0000 Signed Impressions: Service Date/Time: Friday, August 18, 2017 05:58 - CONCLUSION: Stable CT scan of the cervical spine compared to 06/08/2017. Moses Elmore MD Head CT 08/16/17 1627 Signed Impressions: Service Date/Time: Wednesday, August 16, 2017 17:54 - CONCLUSION: No acute intracranial findings. Sonny Latham MD Physical Exam HEENT: Pupils round and reactive to light; normocephalic; atraumatic; no jaundice. NECK: Neck is supple, no JVD, no lymphadenopathy. CHEST: Chest is clear to auscultation and percussion. CARDIAC: Regular rate and rhythm with no murmur gallop or rubs. ABDOMEN: Soft,round, mild bloating, bowel sounds soft, epigastric and right lower quadrant abdominal pain complaints EXTREMITIES: No clubbing, cyanosis, or edema, mild obesity. SKIN: Normal; no rash; no jaundice. EDITING [employer]IP: See but arouses to verbal stimuli (Tisha Pate) Assessment and Plan Assessment: (1) Gastroparesis ICD Codes: K31.84 - Gastroparesis (2) Symptomatic anemia ICD Codes: D64.9 - Anemia, unspecified Status: Acute Plan Assessment/History - GI bleeding received blood transfusion this admission - HGB stable at 11.8 - Dysphagia with solids, feels like food gets stuck - Right lower quadrant pain and epigastric pain continues, patient states black tarry stools this a.m. - S/P EGD 08/19, Small hiatal hernia, Food residue suggesting gastroparesis versus incomplete emptying, Pyloric ulcer possible Duodenitis -Gastroparesis Plan: -Continues with RLQ pain and epigastric pain, Abd US today. - Diet heart healthy - Gastroparesis seen on gastric emptying scan, erythromycin 250 mg 3 times a day with meals -Hemoccult stools today and tomorrow - Transfuse as needed , Call for any acute bleeding. - Monitor Hgb/Hct - Continue Protonix, will transition to by mouth - Supportive care - Encourage physical activity getting up out of bed Pt has been seen and examined by myself and Dr. Abraham and this note is written on her behalf (Tisha Pate) Physician Comments Patient seen and examined Agree with above Continue with current supportive care Monitor labs Recommend chopped diet or pured diet Patient follow-up post discharge with GI Continue PPI (Sami Abraham MD) Tisha Pate Aug 21, 2017 10:36 Sami Abraham MD Aug 22, 2017 00:52
[2017-08-21 11:18] VITALS: BP 135/81; PULSE 81; RESP 18; TEMP 98; O2SAT 95
--- NOTE | 2017-08-21 11:48 | RADRPT ---
EXAM DATE/TIME: 08/21/2017 11:13 [facility] COMPARISON: No previous studies available for comparison. INDICATIONS : Abdominal pain. MEDICAL HISTORY : Arthritis. Seizures. Migraines. Tachycardia arrytmia. HTN. COPD. Ulcer. PTSD. Anxiety. SURGICAL HISTORY : section. Hysterectomy. Cervical fusion. Blood transfusions. ENCOUNTER: Subsequent ACUITY: 2 days PAIN SCORE: 5/10 LOCATION: Abdomen. MEASUREMENTS: LIVER: 16.6 cm length COMMON DUCT: 4 mm RIGHT KIDNEY: 12.0 x 6.0 x 5.4 cm LEFT KIDNEY: 12.2.x 4.9 x 5.0 cm SPLEEN: 11.2 cm length AORTA: 1.7cm maximal FINDINGS: LIVER: Normal echotexture without focal lesion or ductal dilatation. COMMON DUCT: No intraluminal mass or stone visualized. GALLBLADDER: Contains no stones, demonstrates no wall thickening or pericholecystic fluid. PANCREAS: Mostly obscured due to bowel gas. RIGHT KIDNEY: No hydronephrosis, stone or mass. LEFT KIDNEY: No hydronephrosis, stone or mass. SPLEEN: No focal lesion. AORTA: Mostly obscured due to bowel gas. IVC: Within normal limits. CONCLUSION: Significant amount of bowel gas limiting the exam. Solid organs are unremarkable as visualized. Morgan Wade MD on August 21, 2017 at 11:45 Board Certified Radiologist. This report was verified electronically.
[2017-08-21] MEDS ORDERED: ERYTHROMYCIN EC 250 MG TABEC PO SCH (12:00)
[2017-08-21 15:45] VITALS: BP 130/85; PULSE 72; RESP 18; TEMP 97.7; O2SAT 97
--- NOTE | 2017-08-21 17:51 | HHI.PR ---
Subjective Remarks Boyfriend at bedside states that the patient was not on certaim medications at home like klonapin. Patient states had melanotic stool however had BM with brown stool observed by me. Patient c/o abdominal pain and is demanding pain medication. Patient had slurred and garbled speech. Objective Vitals Vital Signs Date Time Temp Pulse Resp B/P (MAP) Pulse Ox O2 Delivery O2 Flow Rate FiO2 08/21/17 15:45 97.7 72 18 130/85 (100) 97 08/21/17 11:18 98.0 81 18 135/81 (99) 95 08/21/17 07:23 98.0 83 16 131/71 (91) 95 08/21/17 04:43 98.0 76 19 123/73 (90) 94 08/21/17 00:00 97.9 76 20 114/54 (74) 97 08/20/17 21:25 97.6 77 18 115/71 (86) 95 Result Diagram: 08/20/17 1500 08/18/17 1000 Imaging Last Impressions Abdomen Ultrasound 08/21/17 0000 Signed Impressions: Service Date/Time: Monday, August 21, 2017 11:13 - CONCLUSION: Significant amount of bowel gas limiting the exam. Solid organs are unremarkable as visualized. Morgan Wade MD Gastric Emptying Nuclear Medicine 08/20/17 0000 Signed Impressions: Service Date/Time: Sunday, August 20, 2017 12:59 - CONCLUSION: Severely impaired gastric emptying Blair Beltran MD Cervical Spine CT 08/18/17 0000 Signed Impressions: Service Date/Time: Friday, August 18, 2017 05:58 - CONCLUSION: Stable CT scan of the cervical spine compared to 06/08/2017. Moses Elmore MD Head CT 08/16/17 1627 Signed Impressions: Service Date/Time: Wednesday, August 16, 2017 17:54 - CONCLUSION: No acute intracranial findings. Sonny Latham MD Objective Remarks GENERAL: Middle-aged female in no acute distress. HEENT: PERRLA, EOMI. No scleral icterus or conjunctival pallor. No lid lag or facial droop. There is pain on palpation of posterior neck. CARDIOVASCULAR: Regular rate and rhythm. No obvious murmurs to auscultation. No chest tenderness to palpation. RESPIRATORY: No obvious rhonchi or wheezing. Clear to auscultation. Breath sounds equal bilaterally. GASTROINTESTINAL: Abdomen soft, mild epigastric tenderness palpation, nondistended. BS normal. MUSCULOSKELETAL: Extremities without clubbing, cyanosis, or edema. No obvious deformities. NEUROLOGICAL: Awake, alert with slurred speech. No focal neurologic deficits. Moving both upper and lower extremities spontaneously. Procedures none A/P Problem List: (1) GI bleed ICD Code: K92.2 - Gastrointestinal hemorrhage, unspecified (2) Symptomatic anemia ICD Code: D64.9 - Anemia, unspecified Status: Acute (3) Dehydration ICD Code: E86.0 - Dehydration (4) Dizziness ICD Code: R42 - Dizziness and giddiness (5) UTI (urinary tract infection) ICD Code: N39.0 - Urinary tract infection, site not specified (6) Seizure disorder ICD Code: G40.909 - Epilepsy, unspecified, not intractable, without status epilepticus (7) Gastroparesis ICD Code: K31.84 - Gastroparesis Plan: Gastric emptying study ordered by gastroenterology. S-shaped emptying study showed severely impaired gastric emptying. This could be medication induced secondary to narcotic pain medication use. Avoid narcotic pain medications. Will start the patient on Reglan 5 mg by mouth 3 times a day. Case was discussed with gastroenterology midlevel. 08/21 patient started on erythromycin as per GI. (8) Toxic encephalopathy ICD Code: G92 - Toxic encephalopathy Status: Acute Plan: Patient with garbled and slurred speech. Upon review of the chart the patient has had a previous admission for overdose and has been admitted to the psychiatric [facility]ohan. I will discontinue all sedating agents for now except phenobarbital which patient states takes for seizures. I will place an order for RN To obtain medication llist from [facility]. Assessment and Plan 1. GI Bleed: +melena, Hemoccult attempted however not enough specimen for testing, in light of symptomatic anemia and melena will proceed w/ treatment for presumed GI Bleed. Protonix IV. Consult GI for further evaluation, likely EGD/Colonoscopy. Monitor Hgb/Hct. 08/17 Appreciate GI consultation. for EGD in am. Patient is sp transfusion 1 unit of PRBC;s qith appropriate hemoglobin response. 08/18 EGD pending. 08/19 status post EGD with findings of a small hiatal hernia, food residue suggesting gastroparesis versus incomplete emptying, pyloric ulcer and possible duodenitis. Await biopsies, avoid NSAIDs and aspirin. Continue with PPI therapy with Protonix 40 mg by mouth twice a day. GI recommends EGD 2 months with possible dilation. Mechanical soft diet. 2. Anemia: Symptomatic. Hgb 8.0, previously 7.9 on 06/09/17. Type & Screen. Check repeat Hgb at midnight, transfuse if <8. 08/17 sp transfusion of 1 unit of PRBC. 08/19 Hb stable. 3. Dizziness: Likely secondary to symptomatic anemia/GI Bleed. CT Head w/ no acute findings, images reviewed by me. Place on telemetry, monitor vitals. Repeat labs in am, replace electrolytes as needed. 08/17 Dizziness resolved. 08/18 patient still complains of dizziness and describes it as if the room is spinning around. Patient has a history of vertigo. We'll start the patient on oral meclizine. 08/19 Dizziness resolved. 4. Dehydration: Resolved after IVF. 5. UTI: U/a w/ LE, mild bacteriuria, in light of fever and comorbidities will treat for uncomplicated UTI w/ IV Rocephin. IVF for hydration. 08/18 UA negative. DC antibiotics 6. Seizure Disorder: Chronic. Resume home medications. Ativan prn if needed. 7. DVT Prophylaxis: SCD/Teds. Pharmacologic contraindication in light of GI Bleed. 8. Neck pain: 08/18 CT of the cervical spine shows a stable CT scan of the cervical spine compared to a previous CT scan on 06/08/17. 08/19 Will DC IV Morphine as RN states patient is looking for IV morphine and requesting it frequently. CT cervical spine does not show any injury that would need IV morphine. I will keep oral opiate medications. Discharge Planning Suspect patient is drug seeking. Possible DC in am after GI clerance, medications need to be reconciled with priya skaggs. DC also pending resolution of encephalopathy. Tod Moreno MD Aug 21, 2017 17:51
[2017-08-21 21:35] VITALS: BP 124/71; PULSE 64; RESP 18; TEMP 97.6; O2SAT 96
[2017-08-22] VITALS: BP 133/80; PULSE 70; RESP 20; TEMP 98.3; O2SAT 98
[2017-08-22 04:00] VITALS: BP 129/76; PULSE 71; RESP 20; TEMP 98.2; O2SAT 95
[2017-08-22] MEDS: PANTOPRAZOLE SODIUM 40 MG VIAL IV PUSH SCH (05:44)
[2017-08-22 08:20] VITALS: BP 153/90; PULSE 71; RESP 15; TEMP 96.3; O2SAT 95
[2017-08-22] MEDS: PHENobarbital 32.4 MG TAB PO SCH (09:00)
[2017-08-22] MEDS: SODIUM CHLORIDE 0.9% FLUSH 10 ML FLUSH IV FLUSH SCH (10:12)
[2017-08-22] MEDS: cloNIDine HCL 0.2 MG TAB PO SCH (10:13)
[2017-08-22] MEDS: DOCUSATE SODIUM 50 MG/SENNA 8.6 MG TAB PO SCH (10:13)
[2017-08-22] MEDS: METOCLOPRAMIDE HCL 10 MG TAB PO SCH (10:13)
[2017-08-22] MEDS: FLUoxetine HCL 20 MG CAP PO SCH (10:13)
[2017-08-22] MEDS: ATENOLOL 50 MG TAB PO SCH (10:13)
[2017-08-22] MEDS: GABAPENTIN 400 MG CAP PO SCH (10:14)
[2017-08-22] MEDS: PROCHLORPERAZINE INJ 10 MG/2 ML VIAL IV PUSH PRN (10:49)
== END 2017-08-22 11:33 | disposition left against medical advice (07) | DRG 377 ==
LOC: NEPC 14:48 → NEDA 21:39 → NEPHCDU 22:51
PROVIDERS: ADMIT Internal Medicine; ATTEND Internal Medicine
PROC: 06HM33Z Insertion of Infusion Device into Right Femoral Vein, Percutaneous Approach (ICD-10-PCS; 2017-08-16)
PROC: 30233N1 Transfusion of Nonautologous Red Blood Cells into Peripheral Vein, Percutaneous Approach (ICD-10-PCS; 2017-08-17)
PROC: 0DB68ZX Excision of Stomach, Via Natural or Artificial Opening Endoscopic, Diagnostic (ICD-10-PCS; 2017-08-19)
PROC: 0DB98ZX Excision of Duodenum, Via Natural or Artificial Opening Endoscopic, Diagnostic (ICD-10-PCS; principal; 2017-08-19 10:08)
DX: K92.1 Melena (principal); G92 Toxic encephalopathy; K31.84 Gastroparesis; R13.10 Dysphagia, unspecified; K25.9 Gastric ulcer, unspecified as acute or chronic, without hemorrhage or perforation; F17.210 Nicotine dependence, cigarettes, uncomplicated; F32.9 Major depressive disorder, single episode, unspecified; D50.0 Iron deficiency anemia secondary to blood loss (chronic); J44.9 Chronic obstructive pulmonary disease, unspecified; E86.0 Dehydration; G40.909 Epilepsy, unspecified, not intractable, without status epilepticus; K44.9 Diaphragmatic hernia without obstruction or gangrene; R55 Syncope and collapse; K21.9 Gastro-esophageal reflux disease without esophagitis; M19.90 Unspecified osteoarthritis, unspecified site; M54.2 Cervicalgia; F41.9 Anxiety disorder, unspecified; E66.9 Obesity, unspecified; Z68.33 Body mass index [BMI] 33.0-33.9, adult; Z90.710 Acquired absence of both cervix and uterus; Z79.899 Other long term (current) drug therapy; Z88.2 Allergy status to sulfonamides
CPT/HCPCS: 36430; 36556; 70450; 72125; 76700; 78264; 80053; 81001; 82272; 82550; 82552; 83735; 84100; 84443; 84484; 85014; 85018; 85025; 85027; 85610; 85730; 86850; 86900; 86901; 86920; 87804; 88305; 93005; 96361; 96372; 96374; A9541; C9113; J0696; J0780; J2270; J7030; J7050; J7120; P9016

== ENCOUNTER 2017-08-28 15:44 | Emergency (ER) | payer SELFPAY ==
[~2017-08-28] VITALS: Ht 162.6 cm; Wt 90.9 kg
[~2017-08-28 15:44] MED LIST changes: +AMBI10TA PO; -AMLO10 PO; +BUTA1CAP PO; +CLON1 PO; -DULO20 PO; -FERR325T20 PO; -GABA600T PO; +GABA800T PO; -HYDR-3799 PO; -LOPE2CAP PO; -MIRTA15 PO; -PANT40TA3 PO; +PHENO60 PO; -TOPI50TA7 PO
[2017-08-28 16:06] VITALS: BP 152/105; PULSE 98; RESP 14; TEMP 98.8; O2SAT 98
[2017-08-28 17:23] VITALS: BP 159/87; PULSE 79; RESP 18; O2SAT 100
[2017-08-28] MEDS ORDERED: MORPHINE SULFATE 8 MG/ML INJ IM ONE (17:45)
[2017-08-28] MEDS ORDERED: DIAZEPAM 5 MG TAB PO ONE (17:45)
--- NOTE | 2017-08-28 17:48 | PD ---
HPI Chief Complaint: Back/ Neck Pain or Injury Time Seen by Provider: 17:30 Travel History International Travel<30 days: No Contact w/Intl Traveler<30days: No Traveled to known affect area: No History of Present Illness HPI 41yo F with PMH of fibromyalgia, cervical spine surgery, anxiety, depression, HTN here with c/o sharp pain from right neck down right shoulder for 3 days. Pain is severe and worst with head movement. Pt has some tingling in bilateral tips of fingers. Denies any focal weakness, chest pain, sob, n/v, abdominal pain. Denies any trauma or fall. No documented fever. Pt follows with neurosurgeon in [place]. PFSH Past Medical History Arthritis: Yes (knees and neck) Autoimmune Disease: No Anxiety: Yes Depression: Yes Cancer: No Cardiovascular Problems: No COPD: Yes (beginning stages) Diabetes: No Endocrine: No Gastrointestinal Disorders: Yes Genitourinary: No Hypertension: Yes Immune Disorder: No Musculoskeletal: Yes Neurologic: Yes Psychiatric: Yes Reproductive: No Respiratory: Yes Migraines: Yes Seizures: Yes Thyroid Disease: No Ulcer: Yes ?: Not : 4 Para: 2 Past Surgical History Abdominal Surgery: No Cardiac Surgery: No Ear Surgery: No Endocrine Surgery: No Eye Surgery: No Genitourinary Surgery: No Gynecologic Surgery: Yes ( x2) Hysterectomy: Yes Neurologic Surgery: Yes (Cervical Fusion) Oral Surgery: No Pacemaker: No Thoracic Surgery: No Other Surgery: Yes Social History Alcohol Use: No Tobacco Use: Yes (/2 PPD) Substance Use: No Allergies-Medications (Allergen,Severity, Reaction): Coded Allergies: Sulfa (Sulfonamide Antibiotics) (Verified Allergy, Severe, 08/16/17) azithromycin (Verified Allergy, Severe, 08/16/17) ondansetron (Verified Allergy, Severe, Swelling, 08/16/17) cyclobenzaprine (Verified Allergy, Intermediate, 08/16/17) propoxyphene (Verified Allergy, Intermediate, 08/16/17) sumatriptan (Unverified Adverse Reaction, Mild, Tingling, 08/28/17) Reported Meds & Prescriptions Reported Meds & Active Scripts Active Atenolol 50 Mg Tab 50 Mg PO BID 30 Days Catapres (Clonidine) 0.2 Mg Tab 0.2 Mg PO TID 30 Days Reported Ambien (Zolpidem Tartrate) 10 Mg Tab 10 Mg PO HS PRN Klonopin (Clonazepam) 1 Mg Tab 1 Mg PO TID Fioricet (Ofqkvecmcs-Rfivjmkasrevc-Cyosinwd) 50-300-40 Mg Cap 2 Cap PO Q4H PRN Phenobarbital 64.8 Mg Tab 64.8 Mg PO TID Gabapentin 800 Mg Tab 800 Mg PO Q6HR Fluoxetine (Fluoxetine HCl) 40 Mg Cap 40 Cap PO DAILY Review of Systems Except as stated in HPI: all other systems reviewed are Neg Physical Exam Narrative GENERAL: 41yo F in moderate distress. SKIN: Focused skin assessment warm/dry. HEAD: Atraumatic. Normocephalic. EYES: Pupils equal and round. No scleral icterus. No injection or drainage. ENT: No midline cervical spine ttp. +TTP right paraspinal muscles. NECK: Trachea midline. No JVD. CARDIOVASCULAR: Regular rate and rhythm. No murmur appreciated. RESPIRATORY: No accessory muscle use. Clear to auscultation. Breath sounds equal bilaterally. GASTROINTESTINAL: Abdomen soft, non-tender, nondistended. MUSCULOSKELETAL: No obvious deformities. No clubbing. No cyanosis. No edema. NEUROLOGICAL: Awake and alert. No obvious cranial nerve deficits. Motor grossly within normal limits in all extremities. Sensation intact. Normal speech. PSYCHIATRIC: Anxious appearing. Data Data Last Documented VS Vital Signs Date Time Temp Pulse Resp B/P (MAP) Pulse Ox O2 Delivery O2 Flow Rate FiO2 08/28/17 17:23 79 18 159/87 (111) 100 Room Air 08/28/17 16:[address] Cerv Spine W/O Contrast (08/28/17 ) Diazepam (Valium) (08/28/17 17:45) Morphine Inj (Morphine Inj) (08/28/17 17:45) Morphine Inj (Morphine Inj) (08/28/17 20:00) Ed Discharge Order (08/28/17 19:53) [facility] Medical Decision Making Medical Screen Exam Complete: Yes Emergency Medical Condition: Yes Differential Diagnosis Cervical radiculopathy vs. musculoskeletal pain vs. fibromyalgia Narrative Course 41yo F with right sided neck pain that radiates down right shoulder. Denies any trauma but had surgery in neck before. Pt said toradol does not help so will give morphine, and valium. Pt is insistent on getting imaging so will obtain CT cervical spine. CT cervical spine showed stable cervical spine CT compare with August 18. Extensive postoperative changes and cervical deformities as above. Pt given morphine and valium for pain with improvement. Pt needs to follow up with her neurosurgeon. Return precautions given. Diagnosis Primary Impression: Neck pain Patient Instructions: General Instructions Departure Forms: Tests/Procedures Additional Instructions: Please follow up with your primary care physician in 2-3 days. Return to the ED if symptoms worsen. Med/Other Pt SpecificInfo: Prescription(s) given Scripts Hydrocodone/Acetaminophen (Hydrocodone-Acetamin 5-325 mg) 5 Mg-325 Mg Tablet 1 TAB PO Q6HR Y for PAIN SCALE 1 TO 4, #7 Prov: Mare Baker DO 08/28/17 Disposition: 01 DISCHARGE HOME Condition: Stable Mare Baker DO Aug 28, 2017 17:48
--- NOTE | 2017-08-28 19:04 | RADRPT ---
EXAM DATE/TIME: 08/28/2017 18:05 [facility] COMPARISON: No previous studies available for comparison. INDICATIONS : Neck pain with numbness to right shoulder. RADIATION DOSE: 25.56 CTDIvol (mGy) MEDICAL HISTORY : Hypertension. Chronic obstructive pulmonary disease. Cardiovascular disease SURGICAL HISTORY : Fusion, cervical. Hysterectomy. ENCOUNTER: Initial ACUITY: 1 day PAIN SCALE: 9/10 LOCATION: Right neck region. TECHNIQUE: Volumetric scanning of the cervical spine was performed. Multiplanar reconstructions in the sagittal, coronal and oblique axial planes were performed. Using automated exposure control and adjustment o f the mA and/or kV according to patient size, radiation dose was kept as low as reasonably achievable to obtain optimal diagnostic quality images. DICOM format image data is available electronically f or review and comparison. FINDINGS: Comparison is from 10 days ago. No significant change in the appearance of the cervical spine. There is previous metallic posterior cervical fusion and thoracic fusion to the level of T1 and occipital f usion. There is anterior cervical fusion extending from C2-C5. Abnormal angular deformity between C2 and C3 is stable. Compression deformity of C5 is stable. Unroofing of the posterior elements is stabl e. No significant central bony canal stenosis. Staple abnormal kyphosis between C3 and C7. CONCLUSION: 1. Stable cervical spine CT compared with August 18. Extensive postoperative changes and cervical de formities as above. Herve Irizarry MD on August 28, 2017 at 18:57 Board Certified Radiologist. This report was verified electronically.
[2017-08-28] MEDS ORDERED: HYDR-3516 PO (19:54)
[2017-08-28] MEDS ORDERED: MORPHINE SULFATE 4 MG/ML INJ IM ONE (20:00)
== END 2017-08-28 20:26 | disposition home or self-care (01) ==
LOC: NEPD 15:44
DX: M54.2 Cervicalgia (principal); R20.2 Paresthesia of skin; M79.7 Fibromyalgia; F41.9 Anxiety disorder, unspecified; F32.9 Major depressive disorder, single episode, unspecified; I10 Essential (primary) hypertension; J44.9 Chronic obstructive pulmonary disease, unspecified; R56.9 Unspecified convulsions; F17.200 Nicotine dependence, unspecified, uncomplicated
CPT/HCPCS: 72125; 96374; 96376; 99285; J2270

== ENCOUNTER 2017-09-12 21:16 | Emergency (ER) | payer SELFPAY ==
[~2017-09-12] VITALS: Ht 162.6 cm; Wt 90.0 kg
[~2017-09-12 21:16] MED LIST changes: +HYDR-3516 PO
[2017-09-12 21:18] VITALS: BP 151/89; PULSE 52; RESP 16; TEMP 98.1; O2SAT 97
--- NOTE | 2017-09-13 00:16 | PD ---
HPI Chief Complaint: Musculoskeletal Complaint Time Seen by Provider: 00:16 Travel History International Travel<30 days: No Contact w/Intl Traveler<30days: No Traveled to known affect area: No History of Present Illness HPI 41-year-old female came to the emergency room for right knee pain after she tripped and fell 2 days ago. Patient has also been complaining of shortness of breath and says she has history of COPD. She appeared a little bit lethargic as she was trying to answer my questions. She has history of previous neck surgery. I was told by the nurse that she after coming into the room walk to the restroom without much difficulty. Vital signs are stable. No open wounds. PFSH Past Medical History Narrative Medical List of her past medical, surgical, social and family history is reviewed from the nursing note Arthritis: Yes (knees and neck) Autoimmune Disease: No Anxiety: Yes Depression: Yes Heart Rhythm Problems: Yes (tachycardic arrythmia) Cancer: No Cardiovascular Problems: Yes (Tachycardia, [place]) COPD: Yes Diabetes: No Endocrine: No Gastrointestinal Disorders: Yes Genitourinary: No Hypertension: Yes Immune Disorder: No Musculoskeletal: Yes Neurologic: Yes Psychiatric: Yes Reproductive: No Respiratory: Yes (COPD) Migraines: Yes Seizures: Yes Thyroid Disease: No Ulcer: Yes Tetanus Vaccination: < 5 Years Influenza Vaccination: No ?: Not : 4 Para: 2 Past Surgical History Abdominal Surgery: No Cardiac Surgery: No Ear Surgery: No Endocrine Surgery: No Eye Surgery: No Genitourinary Surgery: Yes (laproscopic endometriosis repair) Gynecologic Surgery: Yes ( x2) Hysterectomy: Yes Neurologic Surgery: Yes (Cervical Fusionx2) Oral Surgery: No Pacemaker: No Thoracic Surgery: No Other Surgery: Yes Social History Alcohol Use: No Tobacco Use: Yes (1 cig daily) Substance Use: No Allergies-Medications (Allergen,Severity, Reaction): Coded Allergies: Sulfa (Sulfonamide Antibiotics) (Verified Allergy, Severe, 08/16/17) azithromycin (Verified Allergy, Severe, 08/16/17) ondansetron (Verified Allergy, Severe, Swelling, 08/16/17) cyclobenzaprine (Verified Allergy, Intermediate, 08/16/17) propoxyphene (Verified Allergy, Intermediate, 08/16/17) sumatriptan (Unverified Adverse Reaction, Mild, Tingling, 08/28/17) Comments List of her allergies reviewed from the nursing note. Reported Meds & Prescriptions Reported Meds & Active Scripts Active Atenolol 50 Mg Tab 50 Mg PO BID 30 Days Catapres (Clonidine) 0.2 Mg Tab 0.2 Mg PO TID 30 Days Reported Klonopin (Clonazepam) 1 Mg Tab 1 Mg PO TID Gabapentin 800 Mg Tab 800 Mg PO Q6HR Fluoxetine (Fluoxetine HCl) 40 Mg Cap 40 Cap PO DAILY Narrative Medication List of her home medications reviewed from the nursing note. Review of Systems Except as stated in HPI: all other systems reviewed are Neg Physical Exam Narrative GENERAL: Lethargic, slurred speech but answering questions appropriately SKIN: Focused skin assessment warm/dry. HEAD: Atraumatic. Normocephalic. EYES: Pupils equal and round. No scleral icterus. No injection or drainage. ENT: No nasal bleeding or discharge. Mucous membranes pink and moist. NECK: Trachea midline. No JVD. CARDIOVASCULAR: Regular rate and rhythm. No murmur appreciated. RESPIRATORY: No accessory muscle use. Clear to auscultation. Breath sounds equal bilaterally. GASTROINTESTINAL: Abdomen soft, non-tender, nondistended. Hepatic and splenic margins not palpable. MUSCULOSKELETAL: No obvious deformities. No clubbing. No cyanosis. No edema. NEUROLOGICAL: Lethargic. No obvious cranial nerve deficits. Motor grossly within normal limits. Slurred speech. PSYCHIATRIC: Appropriate mood and affect; insight and judgment normal. Data Data Last Documented VS Vital Signs Date Time Temp Pulse Resp B/P (MAP) Pulse Ox O2 Delivery O2 Flow Rate FiO2 09/13/17 01:41 09/12/17 21:18 98.1 52 16 97 Room Air Orders Orders Knee, Complete (4vws) (09/13/17 ) Ibuprofen (Motrin) (09/13/17 00:30) Ed Discharge Order (09/13/17 01:30) MDM Medical Decision Making Medical Screen Exam Complete: Yes Emergency Medical Condition: Yes Medical Record Reviewed: Yes Differential Diagnosis Knee joint arthritis, fracture, Narrative Course 12:52 AM knee x-ray has been ordered. Awaiting for the x-ray to be done and resulted. I've ordered ibuprofen for the pain. I noticed that patient takes phenobarbital. I'll order a phenobarbital level. This will be signed out to the nurse practitioner. Procedures EKG Prior to Arrival: Yandel Raza MD Sep 13, 2017 00:16
[2017-09-13] MEDS ORDERED: IBUPROFEN 600 MG TAB PO ONE (00:30)
--- NOTE | 2017-09-13 01:12 | RADRPT ---
EXAM DATE/TIME: 09/13/2017 00:42 [facility] COMPARISON: No previous studies available for comparison. INDICATIONS : Patient complains of right knee pain after falling on it at home. Pain in area of patella. MEDICAL HISTORY : None. SURGICAL HISTORY : None. ENCOUNTER: Initial ACUITY: 3 days PAIN SCORE: 7/10 LOCATION: Right Knee FINDINGS: There is moderate osteoarthritis of the right knee predominantly at the lateral joint compartment wit h mild joint space narrowing, sclerosis and osteophyte formation. No acute fracture or subluxation. S mall joint effusion. CONCLUSION: 1. Moderate arthritis of the right knee especially at the lateral joint compartment. Herve Irizarry MD on September 13, 2017 at 1:08 Board Certified Radiologist. This report was verified electronically.
--- NOTE | 2017-09-13 01:29 | PD ---
Physical Exam Date Seen by Provider: Sep 13, 2017 Time Seen by Provider: 01:26 Narrative For full history and physical examination please see previous providers note. I assumed care of this patient change of shift. Data Data Last Documented VS Vital Signs Date Time Temp Pulse Resp B/P (MAP) Pulse Ox O2 Delivery O2 Flow Rate FiO2 09/12/17 21:18 98.1 52 16 151/89 (109) 97 Room Air Orders Orders Knee, Complete (4vws) (09/13/17 ) Ibuprofen (Motrin) (09/13/17 00:30) Phenobarbital (09/13/17 00:53) MDM Medical Record Reviewed: Yes Supervised Visit with ALLY: Yes Interpretation(s) Last Impressions Knee X-Ray 09/13/17 0000 Signed Impressions: Service Date/Time: Wednesday, September 13, 2017 00:42 - CONCLUSION: 1. Moderate arthritis of the right knee especially at the lateral joint compartment. Herve Irizarry MD Vital Signs Date Time Temp Pulse Resp B/P (MAP) Pulse Ox O2 Delivery O2 Flow Rate FiO2 09/12/17 21:18 98.1 52 16 151/89 (109) 97 Room Air Differential Diagnosis Contusion versus effusion versus fracture versus arthritis versus other Narrative Course Initially a phenobarbital level was ordered due to patient's drowsiness and lethargy. Patient reported that she is not taking phenobarbital any longer. Patient is alert and being quite rude. She was advised that there are no acute findings on her x-ray other than arthritis. She was encouraged to follow-up with her primary doctor for more advanced imaging if conservative management failed. She was encouraged to alternate heat and ice the affected area, continue gentle range of motion exercises, avoid exacerbating activities and take anti-inflammatory medication as directed. She was offered a lidocaine patch but stated she had those at her house. She then requested tramadol. Patient was advised that tramadol is not indicated for arthritic pain. Patient stated then what did I come here for. She was advised that there were no emergent issues identified and with conservative management she should feel better and if she does not she is free to return to the emergency department and would be glad to take care of her. Diagnosis Primary Impression: Arthritis of knee Additional Impression: Knee pain Qualified Codes: M25.569 - Pain in unspecified knee Referrals: Primary Care Physician Patient Instructions: Arthralgia (ED), Arthritis (ED), General Instructions Additional Instruction: Continue conservative management Alternate heat and ice the affected area, continue range of motion exercises, avoid exacerbating activities Take ibuprofen as needed as directed for pain Return to emergency department for any new worsening symptoms Med/Other Pt SpecificInfo: No Change to Meds Disposition: 01 DISCHARGE HOME Condition: Stable Eileen Ogden Sep 13, 2017 01:29
== END 2017-09-13 01:43 | disposition home or self-care (01) ==
LOC: NEPD 21:16
DX: M17.11 Unilateral primary osteoarthritis, right knee (principal); I10 Essential (primary) hypertension; F17.210 Nicotine dependence, cigarettes, uncomplicated; J44.9 Chronic obstructive pulmonary disease, unspecified
CPT/HCPCS: 73564; 99283